=== PATIENT | male | born 1935 | race Caucasian/White ===

== ENCOUNTER 2019-09-20 10:12 | Outpatient (RCR) | payer MEDICARE, SELFPAY ==
[2019-07-05 09:20] LABS: INR 2.3; Prothrombin Time 23.7 Seconds (9.64-11.0)
[2019-08-09 08:32] LABS: INR 2.1; Prothrombin Time 21.1 Seconds (9.64-11.0)
[2019-09-20 10:30] LABS: INR 2.9; Prothrombin Time 28.8 Seconds (9.64-11.0)
== END 2019-10-03 23:59 | disposition home or self-care (01) ==
LOC: CHSLAB 10:12
PROVIDERS: PCP Internal Medicine; Visit Provider Internal Medicine Cardiovascular Disease
DX: I48.0 Paroxysmal atrial fibrillation (principal); Z79.01 Long term (current) use of anticoagulants; Z98.890 Other specified postprocedural states
CPT/HCPCS: 36415; 85610

== ENCOUNTER 2019-10-21 10:18 | Outpatient (CLI) | payer MEDICARE, SELFPAY ==
[2019-10-21 10:32] LABS: Hematocrit 41.3 % (37.0-46.0); Hemoglobin 13.7 g/dL (12.4-15.3); Mean Corpuscular HGB Conc 33.2 g/dL (32.0-36.0); Mean Corpuscular Volume 102.5 fL (78.0-102.0); Mean Platelet Volume 8.7 fl (8.7-11.0); Platelet Count Result 171 K/mm3 (150-420); Red Blood Count 4.03 M/mm3 (4.70-6.10); Red Cell Distribution Width 12.8 % (11.6-14.4); White Blood Count 4.6 K/mm3 (4.8-10.8)
[2019-10-21 10:45] LABS: Hemoglobin A1C 6.2 % (<5.7)
[2019-10-21 10:46] LABS: Prothrombin Time 29.4 Seconds (9.64-11.0)
[2019-10-21 10:54] LABS: Band Neutrophils Percent 0 % (0-6); Basophils Percent Manual 0 % (0-1); Eosinophils Absolute Manual 0.32 K/mm3 (0.02-0.5); Eosinophils Percent Manual 7 % (1-6); Lymphocytes Absolute Manual 1.33 K/mm3 (1.1-4.5); Lymphocytes Percent Manual 29 % (18-44); Monocytes Percent Manual 11 % (3-9); Neutrophils Absolute Manual 2.43 K/mm3 (1.3-6.7); Neutrophils Percent Manual 53 % (46-73); Total Cells Counted 100
[2019-10-21 10:55] LABS: BNP 90 pg/mL (0-100); Platelet Estimate Adequate (Adequate)
[2019-10-21 11:48] LABS: Alanine Aminotransferase 28 U/L (16-63); Albumin Level 3.6 g/dL (3.4-5.0); Alkaline Phosphatase 129 U/L (46-116); Aspartate Amino Transferase 25 U/L (15-37); Bilirubin,Total 0.6 mg/dL (0.00-1.00); Blood Urea Nitrogen 29 mg/dL (7-18); Calcium 9.2 mg/dL (8.5-10.1); Carbon Dioxide 27 mmol/L (21-32); Chloride 105 mmol/L (98-108); Cholesterol 139 mg/dL (0-200); Estimated Glomerular Filt Rate > 60; Ferritin 269 ng/mL (26-388); Free T3 2.82 pg/mL (2.18-3.98); Free T4 Free Thyroxine 0.96 ng/dL (0.76-1.46); Glucose 97 mg/dL (70-99); HDL Direct 37 mg/dL (40-60); Iron 66 ug/dL (65-175); LDL Cholesterol Calculated 59 mg/dL (<130); Osmolality Calculated 299 mOsm/kg (285-295); Percent Iron Saturation 23 % (12-57); Sodium 142 mmol/L (136-145); Thyroid Stimulating Hormone 1.16 uIU/mL (0.36-3.74); Total Protein 7.1 g/dL (6.4-8.2); Triglycerides 214 mg/dL (0-150)
[2019-10-21 11:50] LABS: Vitamin B12 > 2000 pg/mL (193-986)
[2019-10-21 12:12] LABS: Add Urine Microscopic? NO; Appearance Urine Clear (Clear); Bilirubin Urine Negative (Negative); Blood Urine Negative (Negative); Color Urine Yellow (Yellow); Glucose Urine UA Negative (Negative); Ketones Urine Negative (Negative); Leukocyte Esterase Ur Negative (Negative); Nitrate Urine Negative (Negative); Protein Urine Negative (Negative); Urobilinogen Urine 0.2 mg/dL (0.2-1.0); pH Urine 5.5 (5.0-8.0)
[2019-10-23 18:26] LABS: Vitamin D 25 Hydroxy 44 ng/mL (30-100)
== END 2019-10-21 10:19 | disposition home or self-care (01) ==
LOC: CHSLAB 10:21
PROVIDERS: PCP Internal Medicine; Visit Provider Internal Medicine Cardiovascular Disease
DX: Z98.890 Other specified postprocedural states (principal); Z79.01 Long term (current) use of anticoagulants; I48.0 Paroxysmal atrial fibrillation; R73.01 Impaired fasting glucose; I10 Essential (primary) hypertension; E78.2 Mixed hyperlipidemia; D64.9 Anemia, unspecified; E55.9 Vitamin D deficiency, unspecified; E53.8 Deficiency of other specified B group vitamins; E03.4 Atrophy of thyroid (acquired); R06.02 Shortness of breath
CPT/HCPCS: 36415; 80053; 80061; 81003; 82306; 82607; 82728; 83036; 83540; 83550; 83880; 84439; 84443; 84481; 85025; 85610

== ENCOUNTER 2019-12-30 09:00 | Outpatient (RCR) | payer MEDICARE, SELFPAY ==
[2019-11-21 10:15] LABS: Prothrombin Time 52.2 Seconds (9.64-11.0)
[2019-11-21 10:31] LABS: INR 5.4
[2019-11-29 09:58] LABS: INR 4.4; Prothrombin Time 43.5 Seconds (9.64-11.0)
[2019-12-09 08:47] LABS: INR 3.4; Prothrombin Time 33.5 Seconds (9.64-11.0)
[2019-12-19 09:58] LABS: INR 1.6; Prothrombin Time 16.7 Seconds (9.64-11.0)
[2019-12-30 09:19] LABS: INR 2.1; Prothrombin Time 21.4 Seconds (9.64-11.0)
== END 2020-01-10 23:59 | disposition home or self-care (01) ==
LOC: CHSLAB 09:00
PROVIDERS: PCP Internal Medicine Cardiovascular Disease; Visit Provider Internal Medicine Cardiovascular Disease
DX: Z98.890 Other specified postprocedural states (principal); Z79.01 Long term (current) use of anticoagulants; I48.0 Paroxysmal atrial fibrillation
CPT/HCPCS: 36415; 85610

== ENCOUNTER 2020-03-31 09:12 | Outpatient (RCR) | payer MEDICARE, SELFPAY ==
[2020-01-27 16:02] LABS: INR 1.8; Prothrombin Time 18.4 Seconds (9.64-11.0)
[2020-02-27 09:54] LABS: Prothrombin Time 20.5 Seconds (9.64-11.0)
[2020-03-31 09:33] LABS: INR 1.9; Prothrombin Time 19.2 Seconds (9.64-11.0)
== END 2020-04-26 23:59 | disposition home or self-care (01) ==
LOC: CHSLAB 09:12
PROVIDERS: PCP Internal Medicine; Visit Provider Internal Medicine Cardiovascular Disease
DX: Z79.01 Long term (current) use of anticoagulants (principal); I48.0 Paroxysmal atrial fibrillation; Z98.890 Other specified postprocedural states
CPT/HCPCS: 36415; 85610

== ENCOUNTER 2020-05-01 10:37 | Outpatient (CLI) | payer MEDICARE, SELFPAY ==
[2020-05-01 11:09] LABS: Basophils Absolute Auto 0.01 K/mm3 (0.00-0.10); Basophils Percent Auto 0.2 % (0.0-1.0); Eosinophils Percent Auto 2.3 % (1.0-6.0); Hematocrit 40.4 % (37.0-46.0); Hemoglobin 12.8 g/dL (12.4-15.3); Immature Granulocyte Absolute 0.02 K/mm3 (0.00-0.00); Immature Granulocyte Percent A 0.5 % (0.0-0.0); Lymphocytes Percent Auto 20.4 % (18.0-42.0); Mean Corpuscular HGB Conc 31.7 g/dL (32.0-36.0); Mean Corpuscular Volume 107.2 fL (78.0-102.0); Mean Platelet Volume 8.6 fl (8.7-11.0); Monocytes Absolute Auto 0.59 K/mm3 (0.10-0.90); Monocytes Percent Auto 13.4 % (2.0-11.0); Neutrophils Absolute Auto 2.8 K/mm3 (1.7-7.2); Neutrophils Percent Auto 63.2 % (50.0-70.0); Platelet Count Result 188 K/mm3 (150-420); Red Blood Count 3.77 M/mm3 (4.70-6.10); Red Cell Distribution Width 12.3 % (11.6-14.4); White Blood Count 4.4 K/mm3 (4.8-10.8)
[2020-05-01 11:12] LABS: Add Urine Microscopic? NO; Appearance Urine Clear (Clear); Bilirubin Urine Negative (Negative); Blood Urine Negative (Negative); Color Urine Yellow (Yellow); Glucose Urine UA Negative (Negative); Ketones Urine Negative (Negative); Leukocyte Esterase Ur Negative (Negative); Nitrate Urine Negative (Negative); Protein Urine Negative (Negative); Specific Grav Ur >= 1.030 (1.010-1.020); Urobilinogen Urine 0.2 mg/dL (0.2-1.0)
[2020-05-01 11:23] LABS: INR 2.1; Prothrombin Time 21.3 Seconds (9.64-11.0)
[2020-05-01 11:23] LABS: Hemoglobin A1C 5.8 % (<5.7)
[2020-05-01 11:42] LABS: BNP 237 pg/mL (0-100)
[2020-05-01 11:57] LABS: Alanine Aminotransferase 26 U/L (16-63); Albumin Level 3.7 g/dL (3.4-5.0); Alkaline Phosphatase 106 U/L (46-116); Anion Gap 11 mmol/L (8-16); Aspartate Amino Transferase 20 U/L (15-37); Bilirubin,Total 0.9 mg/dL (0.00-1.00); Blood Urea Nitrogen 22 mg/dL (7-18); Calcium 8.9 mg/dL (8.5-10.1); Carbon Dioxide 25 mmol/L (21-32); Chloride 108 mmol/L (98-108); Cholesterol 127 mg/dL (0-200); Estimated Glomerular Filt Rate > 60; Free T3 3.18 pg/mL (2.18-3.98); Free T4 Free Thyroxine 1.18 ng/dL (0.76-1.46); HDL Direct 50 mg/dL (40-60); LDL Cholesterol Calculated 59 mg/dL (<130); Potassium 4.2 mmol/L (3.5-5.1); Sodium 144 mmol/L (136-145); Thyroid Stimulating Hormone 0.09 uIU/mL (0.36-3.74); Total Protein 6.7 g/dL (6.4-8.2); Triglycerides 90 mg/dL (0-150)
[2020-05-01 12:07] LABS: Glucose 88 mg/dL (70-99); Osmolality Calculated 300 mOsm/kg (285-295)
[2020-05-01 12:15] LABS: Vitamin B12 > 2000 pg/mL (193-986)
[2020-05-05 12:04] LABS: Vitamin D 25 Hydroxy 40 ng/mL (30-100)
== END 2020-05-01 10:38 | disposition home or self-care (01) ==
PROVIDERS: PCP Internal Medicine; Visit Provider Internal Medicine
DX: Z98.890 Other specified postprocedural states (principal); Z79.01 Long term (current) use of anticoagulants; I48.0 Paroxysmal atrial fibrillation; I10 Essential (primary) hypertension; R73.01 Impaired fasting glucose; E78.2 Mixed hyperlipidemia; E55.9 Vitamin D deficiency, unspecified; E03.4 Atrophy of thyroid (acquired); E53.8 Deficiency of other specified B group vitamins; R06.00 Dyspnea, unspecified
CPT/HCPCS: 36415; 80053; 80061; 81003; 82306; 82607; 83036; 83880; 84439; 84443; 84481; 85025; 85610

== ENCOUNTER 2020-07-16 09:27 | Outpatient (CLI) | payer MEDICARE, SELFPAY ==
[2020-07-16 09:56] LABS: INR 2.2; Prothrombin Time 22.4 Seconds (9.50-12.10)
[2020-07-16 10:23] LABS: Free T3 2.68 pg/mL (2.18-3.98); Free T4 Free Thyroxine 0.93 ng/dL (0.76-1.46); Thyroid Stimulating Hormone 0.21 uIU/mL (0.36-3.74)
== END 2020-07-16 09:28 | disposition home or self-care (01) ==
PROVIDERS: PCP Internal Medicine; Visit Provider Internal Medicine
DX: I48.0 Paroxysmal atrial fibrillation (principal); Z79.01 Long term (current) use of anticoagulants; E03.4 Atrophy of thyroid (acquired)
CPT/HCPCS: 36415; 84439; 84443; 84481; 85610

== ENCOUNTER 2020-08-17 10:12 | Outpatient (RCR) | payer MEDICARE, SELFPAY ==
[2020-06-01 09:16] LABS: INR 1.7; Prothrombin Time 18.2 Seconds (9.50-12.10)
[2020-06-15 08:45] LABS: INR 2.3; Prothrombin Time 24.5 Seconds (9.50-12.10)
== END 2020-08-30 23:59 | disposition home or self-care (01) ==
LOC: CHSLAB 10:12
PROVIDERS: PCP Internal Medicine; Visit Provider Internal Medicine Cardiovascular Disease
DX: Z98.890 Other specified postprocedural states (principal); Z79.01 Long term (current) use of anticoagulants; I48.0 Paroxysmal atrial fibrillation
CPT/HCPCS: 36415; 85610

== ENCOUNTER 2020-10-14 16:38 | Outpatient (CLI) | payer MEDICARE, BC, SELFPAY ==
--- NOTE | ~2020-10-14 | XR_ITS ---
EXAMINATION: XR knee LT min 4V DATE: 10/14/2020 17:11 INDICATION: Left knee patellar pain and swelling post fall 2010 days prior TECHNIQUE: Weight bearing anteroposterior and Boone, sunrise, and flexed lateral views of the aff ected knee were obtained COMPARISON: 10/31/2015 FINDINGS: Alignment is normal. No fracture. Osteoarthritis with mild to moderate joint space narrowing and tin y marginal osteophytes at the medial and patellofemoral compartments. No joint effusion/layering lipo hemarthrosis. Prominent prepatellar soft tissue swelling with relatively high density suggesting a po sterolateral hematoma. More diffuse subcutaneous edema about the left knee. IMPRESSION: 1. Dense soft tissue swelling anterior to the patella most likely post traumatic hematoma. No acute o sseous abnormality. 2. 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 Reviewed, dictated and finalized at location A. IMPRESSION: 1. Dense soft tissue swelling anterior to the patella most likely post traumati c hematoma. No acute osseous abnormality. 2. Mild to moderate osteoarthritis in the medial and patellofemoral compartment s.
== END 2020-10-14 16:39 | disposition home or self-care (01) ==
PROVIDERS: PCP Internal Medicine; Visit Provider Internal Medicine
DX: S89.92XA Unspecified injury of left lower leg, initial encounter (principal)
CPT/HCPCS: 73564

== ENCOUNTER 2020-10-28 09:06 | Outpatient (CLI) | payer MEDICARE, SELFPAY ==
[2020-10-28 09:24] LABS: Hematocrit 35.6 % (37.0-46.0); Hemoglobin 11.3 g/dL (12.4-15.3); Mean Corpuscular HGB Conc 31.7 g/dL (32.0-36.0); Mean Corpuscular Hemoglobin 33.3 pg (27.0-31.0); Mean Platelet Volume 8.4 fl (8.7-11.0); Platelet Count Result 199 K/mm3 (150-420); Red Blood Count 3.39 M/mm3 (4.70-6.10); Red Cell Distribution Width 14.1 % (11.6-14.4); White Blood Count 3.9 K/mm3 (4.8-10.8)
[2020-10-28 09:30] LABS: Add Urine Microscopic? NO; Appearance Urine Clear (Clear); Bilirubin Urine Negative (Negative); Blood Urine Negative (Negative); Color Urine Yellow (Yellow); Glucose Urine UA Negative (Negative); Ketones Urine Negative (Negative); Leukocyte Esterase Ur Negative (Negative); Nitrate Urine Negative (Negative); Protein Urine Negative (Negative); pH Urine 6.5 (5.0-8.0)
[2020-10-28 09:38] LABS: INR 1.4; Prothrombin Time 15.1 Seconds (9.50-12.10)
[2020-10-28 09:45] LABS: Band Neutrophils Percent 0 % (0-6); Basophils Percent Manual 0 % (0-1); Eosinophils Absolute Manual 0.23 K/mm3 (0.02-0.5); Eosinophils Percent Manual 6 % (1-6); Lymphocytes Percent Manual 31 % (18-44); Monocytes Absolute Manual 0.35 K/mm3 (0.1-0.90); Monocytes Percent Manual 9 % (3-9); Neutrophils Percent Manual 54 % (46-73); Platelet Estimate Adequate (Adequate); Total Cells Counted 100
[2020-10-28 10:43] LABS: Alanine Aminotransferase 21 U/L (16-63); Albumin Level 3.5 g/dL (3.4-5.0); Alkaline Phosphatase 129 U/L (46-116); Anion Gap 8 mmol/L (8-16); Aspartate Amino Transferase 16 U/L (15-37); Bilirubin,Total 0.9 mg/dL (0.00-1.00); Blood Urea Nitrogen 19 mg/dL (7-18); Carbon Dioxide 28 mmol/L (21-32); Chloride 104 mmol/L (98-108); Cholesterol 124 mg/dL (0-200); Estimated Glomerular Filt Rate > 60; Ferritin 322 ng/mL (26-388); Free T3 2.37 pg/mL (2.18-3.98); Free T4 Free Thyroxine 0.95 ng/dL (0.76-1.46); Glucose 95 mg/dL (70-99); HDL Direct 37 mg/dL (40-60); Iron 46 ug/dL (65-175); LDL Cholesterol Calculated 62 mg/dL (<130); NT Pro B Type Natriuretic Pept 1585 pg/mL (0-450); Osmolality Calculated 292 mOsm/kg (285-295); Percent Iron Saturation 17 % (12-57); Potassium 4.1 mmol/L (3.5-5.1); Sodium 140 mmol/L (136-145); Thyroid Stimulating Hormone 4.06 uIU/mL (0.36-3.74); Total Protein 6.8 g/dL (6.4-8.2); Triglycerides 126 mg/dL (0-150); Vitamin B12 468 pg/mL (193-986)
[2020-10-28 10:49] LABS: Calcium 9.2 mg/dL (8.5-10.1)
== END 2020-10-28 09:07 | disposition home or self-care (01) ==
LOC: CHSLAB 09:09
PROVIDERS: PCP Internal Medicine; Visit Provider Internal Medicine Cardiovascular Disease
DX: I48.0 Paroxysmal atrial fibrillation (principal); Z79.01 Long term (current) use of anticoagulants; E03.4 Atrophy of thyroid (acquired); R73.01 Impaired fasting glucose; I10 Essential (primary) hypertension; E55.9 Vitamin D deficiency, unspecified; E53.8 Deficiency of other specified B group vitamins; E78.2 Mixed hyperlipidemia; D64.9 Anemia, unspecified; I50.9 Heart failure, unspecified
CPT/HCPCS: 36415; 80053; 80061; 81003; 82607; 82728; 83540; 83550; 83880; 84439; 84443; 84481; 85025; 85610

== ENCOUNTER 2020-12-02 09:55 | Outpatient (RCR) | payer MEDICARE, SELFPAY ==
[2020-09-17 08:52] LABS: INR 2.2; Prothrombin Time 22.2 Seconds (9.50-12.10)
[2020-11-04 08:52] LABS: INR 2.3; Prothrombin Time 23.5 Seconds (9.50-12.10)
[2020-11-11 12:43] LABS: INR 2.2; Prothrombin Time 22.9 Seconds (9.50-12.10)
[2020-12-02 10:15] LABS: INR 2.4; Prothrombin Time 24.5 Seconds (9.50-12.10)
== END 2020-12-16 23:59 | disposition home or self-care (01) ==
LOC: CHSLAB 09:55
PROVIDERS: PCP Internal Medicine; Visit Provider Internal Medicine Cardiovascular Disease
DX: I48.0 Paroxysmal atrial fibrillation (principal); Z79.01 Long term (current) use of anticoagulants
CPT/HCPCS: 36415; 85610

== ENCOUNTER 2020-12-31 09:11 | Outpatient (CLI) | payer MEDICARE, SELFPAY ==
[2020-12-31 09:37] LABS: Hematocrit 39.3 % (37.0-46.0); Hemoglobin 12.6 g/dL (12.4-15.3); Immature Reticulocyte Fraction 11.5 % (2.0-16.52); Mean Corpuscular HGB Conc 32.1 g/dL (32.0-36.0); Mean Corpuscular Hemoglobin 32.5 pg (27.0-31.0); Mean Corpuscular Volume 101.3 fL (78.0-102.0); Mean Platelet Volume 8.6 fl (8.7-11.0); Platelet Count Result 179 K/mm3 (150-420); Red Blood Count 3.88 M/mm3 (4.70-6.10); Red Cell Distribution Width 13.2 % (11.6-14.4); Reticulocyte Hemoglobin Conten 38.1 pg (28.0-35.0); Reticulocyte Percent 1.37 % (0.50-1.50); Reticulocytes Absolute 0.05 M/mm3 (0.02-0.1); White Blood Count 4.1 K/mm3 (4.8-10.8)
[2020-12-31 09:49] LABS: INR 2.1; Prothrombin Time 22.1 Seconds (9.50-12.10)
[2020-12-31 10:08] LABS: Band Neutrophils Percent 0 % (0-6); Basophils Percent Manual 0 % (0-1); Eosinophils Absolute Manual 0.32 K/mm3 (0.02-0.5); Eosinophils Percent Manual 8 % (1-6); Lymphocytes Absolute Manual 1.18 K/mm3 (1.1-4.5); Lymphocytes Percent Manual 29 % (18-44); Monocytes Absolute Manual 0.45 K/mm3 (0.1-0.90); Monocytes Percent Manual 11 % (3-9); Neutrophils Absolute Manual 2.13 K/mm3 (1.3-6.7); Neutrophils Percent Manual 52 % (46-73); Platelet Estimate Adequate (Adequate); Total Cells Counted 100
[2020-12-31 10:35] LABS: Ferritin 196 ng/mL (26-388); Iron 46 ug/dL (65-175); Percent Iron Saturation 16 % (12-57)
[2021-01-04 13:01] LABS: Red Blood Cell Folate 634 ng/mL RBC (>280)
== END 2020-12-31 09:12 | disposition home or self-care (01) ==
LOC: CHSLAB 09:14
PROVIDERS: PCP Internal Medicine; Visit Provider Internal Medicine
DX: D64.9 Anemia, unspecified (principal); I48.0 Paroxysmal atrial fibrillation; Z79.01 Long term (current) use of anticoagulants
CPT/HCPCS: 36415; 82728; 82747; 83540; 83550; 85025; 85046; 85610

== ENCOUNTER 2021-02-01 09:18 | Outpatient (CLI) | payer MEDICARE, SELFPAY ==
[2021-02-01 09:33] LABS: Basophils Absolute Auto 0.02 K/mm3 (0.00-0.10); Basophils Percent Auto 0.5 % (0.0-1.0); Eosinophils Absolute Auto 0.28 K/mm3 (0.02-0.50); Eosinophils Percent Auto 6.4 % (1.0-6.0); Hematocrit 40.4 % (37.0-46.0); Hemoglobin 12.8 g/dL (12.4-15.3); Immature Granulocyte Absolute 0.01 K/mm3 (0.00-0.00); Immature Granulocyte Percent A 0.2 % (0.0-0.0); Lymphocytes Absolute Auto 0.99 K/mm3 (1.10-4.50); Lymphocytes Percent Auto 22.6 % (18.0-42.0); Mean Corpuscular HGB Conc 31.7 g/dL (32.0-36.0); Mean Corpuscular Hemoglobin 33.1 pg (27.0-31.0); Mean Corpuscular Volume 104.4 fL (78.0-102.0); Mean Platelet Volume 8.4 fl (8.7-11.0); Monocytes Percent Auto 13.7 % (2.0-11.0); Neutrophils Absolute Auto 2.5 K/mm3 (1.7-7.2); Neutrophils Percent Auto 56.6 % (50.0-70.0); Platelet Count Result 158 K/mm3 (150-420); Red Blood Count 3.87 M/mm3 (4.70-6.10); Red Cell Distribution Width 13.5 % (11.6-14.4); White Blood Count 4.4 K/mm3 (4.8-10.8)
[2021-02-01 09:46] LABS: INR 2.1; Prothrombin Time 21.8 Seconds (9.50-12.10)
[2021-02-01 10:38] LABS: Ferritin 228 ng/mL (26-388); Free T3 2.56 pg/mL (2.18-3.98); Free T4 Free Thyroxine 0.82 ng/dL (0.76-1.46); Iron 57 ug/dL (65-175); Thyroid Stimulating Hormone 5.17 uIU/mL (0.36-3.74)
== END 2021-02-01 09:19 | disposition home or self-care (01) ==
LOC: CHSLAB 09:20
PROVIDERS: PCP Internal Medicine; Visit Provider Internal Medicine Cardiovascular Disease
DX: D50.9 Iron deficiency anemia, unspecified (principal); E03.4 Atrophy of thyroid (acquired); I48.0 Paroxysmal atrial fibrillation
CPT/HCPCS: 36415; 82728; 83540; 84439; 84443; 84481; 85025; 85610

== ENCOUNTER 2021-03-08 09:21 | Outpatient (CLI) | payer MEDICARE, SELFPAY ==
[2021-03-08 09:34] LABS: Hematocrit 41.5 % (37.0-46.0); Hemoglobin 13.3 g/dL (12.4-15.3); Mean Corpuscular Hemoglobin 33.4 pg (27.0-31.0); Mean Corpuscular Volume 104.3 fL (78.0-102.0); Mean Platelet Volume 8.8 fl (8.7-11.0); Platelet Count Result 159 K/mm3 (150-420); Red Blood Count 3.98 M/mm3 (4.70-6.10); Red Cell Distribution Width 13.3 % (11.6-14.4); White Blood Count 3.7 K/mm3 (4.8-10.8)
[2021-03-08 09:50] LABS: INR 3.7; Prothrombin Time 36.7 Seconds (9.50-12.10)
[2021-03-08 10:04] LABS: Band Neutrophils Percent 0 % (0-6); Basophils Percent Manual 0 % (0-1); Eosinophils Absolute Manual 0.29 K/mm3 (0.02-0.5); Eosinophils Percent Manual 8 % (1-6); Lymphocytes Absolute Manual 1.22 K/mm3 (1.1-4.5); Lymphocytes Percent Manual 33 % (18-44); Monocytes Absolute Manual 0.51 K/mm3 (0.1-0.90); Monocytes Percent Manual 14 % (3-9); Neutrophils Absolute Manual 1.66 K/mm3 (1.3-6.7); Neutrophils Percent Manual 45 % (46-73); Total Cells Counted 100
[2021-03-08 10:05] LABS: Platelet Estimate Adequate (Adequate)
[2021-03-08 10:29] LABS: Ferritin 226 ng/mL (26-388); Iron 71 ug/dL (65-175); Percent Iron Saturation 27 % (12-57)
== END 2021-03-08 09:22 | disposition home or self-care (01) ==
LOC: CHSLAB 09:23
PROVIDERS: PCP Internal Medicine; Visit Provider Internal Medicine Cardiovascular Disease
DX: D50.9 Iron deficiency anemia, unspecified (principal); Z79.01 Long term (current) use of anticoagulants
CPT/HCPCS: 36415; 82728; 83540; 83550; 85025; 85610

== ENCOUNTER 2021-04-30 07:56 | Outpatient (CLI) | payer MEDICARE, SELFPAY ==
[2021-04-30 08:13] LABS: Hematocrit 40.9 % (37.0-46.0); Hemoglobin 12.9 g/dL (12.4-15.3); Mean Corpuscular HGB Conc 31.5 g/dL (32.0-36.0); Mean Corpuscular Hemoglobin 33.4 pg (27.0-31.0); Mean Platelet Volume 8.9 fl (8.7-11.0); Platelet Count Result 144 K/mm3 (150-420); Red Blood Count 3.86 M/mm3 (4.70-6.10); Red Cell Distribution Width 13.2 % (11.6-14.4); White Blood Count 3.7 K/mm3 (4.8-10.8)
[2021-04-30 08:35] LABS: Hemoglobin A1C 5.8 % (<5.7)
[2021-04-30 09:06] LABS: Band Neutrophils Percent 31 % (0-6); Basophils Percent Manual 0 % (0-1); Eosinophils Percent Manual 0 % (1-6); Lymphocytes Absolute Manual 0.48 K/mm3 (1.1-4.5); Lymphocytes Percent Manual 13 % (18-44); Monocytes Absolute Manual 0.14 K/mm3 (0.1-0.90); Monocytes Percent Manual 4 % (3-9); Neutrophils Absolute Manual 1.14 K/mm3 (1.3-6.7); Neutrophils Percent Manual 0 % (46-73); Platelet Estimate Adequate (Adequate); Total Cells Counted 52
[2021-04-30 09:19] LABS: Alanine Aminotransferase 39 U/L (16-63); Albumin Level 3.7 g/dL (3.4-5.0); Alkaline Phosphatase 104 U/L (46-116); Anion Gap 9 mmol/L (8-16); Aspartate Amino Transferase 27 U/L (15-37); Bilirubin,Total 0.9 mg/dL (0.00-1.00); Blood Urea Nitrogen 27 mg/dL (7-18); Calcium 9.2 mg/dL (8.5-10.1); Carbon Dioxide 28 mmol/L (21-32); Chloride 104 mmol/L (98-108); Cholesterol 132 mg/dL (0-200); Estimated Glomerular Filt Rate 53; Ferritin 225 ng/mL (26-388); Free T3 2.84 pg/mL (2.18-3.98); Free T4 Free Thyroxine 0.98 ng/dL (0.76-1.46); Glucose 88 mg/dL (70-99); HDL Direct 50 mg/dL (40-60); Iron 56 ug/dL (65-175); LDL Cholesterol Calculated 66 mg/dL (<130); Magnesium 2.3 mg/dL (1.8-2.4); NT Pro B Type Natriuretic Pept 869 pg/mL (0-450); Osmolality Calculated 296 mOsm/kg (285-295); Potassium 4.2 mmol/L (3.5-5.1); Sodium 141 mmol/L (136-145); Thyroid Stimulating Hormone 2.69 uIU/mL (0.36-3.74); Triglycerides 80 mg/dL (0-150); Vitamin B12 534 pg/mL (193-986)
[2021-04-30 09:47] LABS: Add Urine Microscopic? NO; Appearance Urine Clear (Clear); Bilirubin Urine Negative (Negative); Blood Urine Negative (Negative); Color Urine Light Yellow (Yellow); Glucose Urine UA Negative (Negative); Ketones Urine Negative (Negative); Leukocyte Esterase Ur Negative (Negative); Nitrate Urine Negative (Negative); Protein Urine Negative (Negative); Specific Grav Ur 1.015 (1.010-1.020); Urobilinogen Urine 0.2 mg/dL (0.2-1.0)
[2021-05-03 18:53] LABS: Vitamin D 25 Hydroxy 39 ng/mL (30-100)
[2021-05-04 14:47] LABS: Red Blood Cell Folate 550 ng/mL RBC (>280)
== END 2021-04-30 07:57 | disposition home or self-care (01) ==
LOC: CHSLAB 07:58
PROVIDERS: PCP Internal Medicine; Visit Provider Internal Medicine
DX: E03.4 Atrophy of thyroid (acquired) (principal); I10 Essential (primary) hypertension; E55.9 Vitamin D deficiency, unspecified; R73.01 Impaired fasting glucose; E78.2 Mixed hyperlipidemia; E53.8 Deficiency of other specified B group vitamins; D50.9 Iron deficiency anemia, unspecified; I48.11 Longstanding persistent atrial fibrillation; I50.9 Heart failure, unspecified
CPT/HCPCS: 36415; 80053; 80061; 81003; 82306; 82607; 82728; 82747; 83036; 83540; 83735; 83880; 84439; 84443; 84481; 85025; 85610

== ENCOUNTER 2021-05-04 10:52 | Outpatient (RCR) | payer MEDICARE, SELFPAY ==
[2021-04-02 09:49] LABS: INR 2.3
[2021-05-04 11:20] LABS: INR 2.2; Prothrombin Time 22.3 Seconds (9.50-12.10)
== END 2021-07-01 23:59 | disposition home or self-care (01) ==
LOC: CHSLAB 10:52
PROVIDERS: PCP Internal Medicine; Visit Provider Internal Medicine Cardiovascular Disease
DX: I48.0 Paroxysmal atrial fibrillation (principal); Z79.01 Long term (current) use of anticoagulants
CPT/HCPCS: 36415; 85610

== ENCOUNTER 2021-06-08 08:07 | Outpatient (CLI) | payer MEDICARE, SELFPAY ==
[2021-06-08 08:20] LABS: Basophils Absolute Auto 0.01 K/mm3 (0.00-0.10); Basophils Percent Auto 0.2 % (0.0-1.0); Eosinophils Absolute Auto 0.27 K/mm3 (0.02-0.50); Eosinophils Percent Auto 6.2 % (1.0-6.0); Hematocrit 41.9 % (37.0-46.0); Hemoglobin 13.1 g/dL (12.4-15.3); Immature Granulocyte Absolute 0.02 K/mm3 (0.00-0.00); Immature Granulocyte Percent A 0.5 % (0.0-0.0); Lymphocytes Absolute Auto 1.38 K/mm3 (1.10-4.50); Lymphocytes Percent Auto 31.7 % (18.0-42.0); Mean Corpuscular HGB Conc 31.3 g/dL (32.0-36.0); Mean Corpuscular Hemoglobin 33.2 pg (27.0-31.0); Mean Corpuscular Volume 106.1 fL (78.0-102.0); Mean Platelet Volume 8.7 fl (8.7-11.0); Monocytes Absolute Auto 0.42 K/mm3 (0.10-0.90); Monocytes Percent Auto 9.6 % (2.0-11.0); Neutrophils Absolute Auto 2.3 K/mm3 (1.7-7.2); Neutrophils Percent Auto 51.8 % (50.0-70.0); Platelet Count Result 176 K/mm3 (150-420); Red Blood Count 3.95 M/mm3 (4.70-6.10); Red Cell Distribution Width 12.9 % (11.6-14.4); White Blood Count 4.4 K/mm3 (4.8-10.8)
[2021-06-08 08:33] LABS: INR 2.6; Prothrombin Time 26.2 Seconds (9.50-12.10)
[2021-06-08 09:09] LABS: Ferritin 266 ng/mL (26-388); Iron 64 ug/dL (65-175)
== END 2021-06-08 08:08 | disposition home or self-care (01) ==
LOC: CHSLAB 08:09
PROVIDERS: Internal Medicine Cardiovascular Disease; PCP Internal Medicine; Visit Provider Internal Medicine
DX: D50.9 Iron deficiency anemia, unspecified (principal); I48.0 Paroxysmal atrial fibrillation; Z79.01 Long term (current) use of anticoagulants
CPT/HCPCS: 36415; 82728; 83540; 85025; 85610

== ENCOUNTER 2021-07-09 08:56 | Outpatient (CLI) | payer MEDICARE, SELFPAY ==
[2021-07-09 09:09] LABS: Basophils Absolute Auto 0.02 K/mm3 (0.00-0.10); Basophils Percent Auto 0.4 % (0.0-1.0); Eosinophils Absolute Auto 0.22 K/mm3 (0.02-0.50); Eosinophils Percent Auto 3.9 % (1.0-6.0); Hematocrit 40.5 % (37.0-46.0); Hemoglobin 12.8 g/dL (12.4-15.3); Immature Granulocyte Absolute 0.02 K/mm3 (0.00-0.00); Immature Granulocyte Percent A 0.4 % (0.0-0.0); Lymphocytes Absolute Auto 1.18 K/mm3 (1.10-4.50); Mean Corpuscular HGB Conc 31.6 g/dL (32.0-36.0); Mean Corpuscular Hemoglobin 33.8 pg (27.0-31.0); Mean Corpuscular Volume 106.9 fL (78.0-102.0); Mean Platelet Volume 8.6 fl (8.7-11.0); Monocytes Absolute Auto 0.64 K/mm3 (0.10-0.90); Monocytes Percent Auto 11.4 % (2.0-11.0); Neutrophils Absolute Auto 3.5 K/mm3 (1.7-7.2); Neutrophils Percent Auto 62.9 % (50.0-70.0); Platelet Count Result 150 K/mm3 (150-420); Red Blood Count 3.79 M/mm3 (4.70-6.10); Red Cell Distribution Width 13.2 % (11.6-14.4); White Blood Count 5.6 K/mm3 (4.8-10.8)
[2021-07-09 09:22] LABS: Prothrombin Time 30.1 Seconds (9.50-12.10)
[2021-07-09 09:54] LABS: Ferritin 209 ng/mL (26-388); Iron 48 ug/dL (65-175)
== END 2021-07-09 08:57 | disposition home or self-care (01) ==
LOC: CHSLAB 08:57
PROVIDERS: PCP Internal Medicine; Visit Provider Internal Medicine Cardiovascular Disease
DX: D50.9 Iron deficiency anemia, unspecified (principal); I48.0 Paroxysmal atrial fibrillation; Z79.01 Long term (current) use of anticoagulants
CPT/HCPCS: 36415; 82728; 83540; 85025; 85610

== ENCOUNTER 2021-10-07 08:49 | Outpatient (RCR) | payer MEDICARE, SELFPAY ==
[2021-08-12 11:45] LABS: INR 2.1; Prothrombin Time 21.9 Seconds (9.50-12.10)
[2021-09-06 09:38] LABS: INR 2.9; Prothrombin Time 29.5 Seconds (9.50-12.10)
[2021-10-07 10:00] LABS: INR 2.1; Prothrombin Time 21.6 Seconds (9.50-12.10)
== END 2021-11-10 23:59 | disposition home or self-care (01) ==
LOC: CHSLAB 08:49
PROVIDERS: PCP Internal Medicine; Visit Provider Internal Medicine Cardiovascular Disease
DX: I48.91 Unspecified atrial fibrillation (principal); Z79.01 Long term (current) use of anticoagulants
CPT/HCPCS: 36415; 85610

== ENCOUNTER 2021-12-07 09:02 | Outpatient (CLI) | payer MEDICARE, SELFPAY ==
[2021-12-07 09:16] LABS: Hematocrit 38.7 % (37.0-46.0); Hemoglobin 12.3 g/dL (12.4-15.3); Mean Corpuscular HGB Conc 31.8 g/dL (32.0-36.0); Mean Corpuscular Hemoglobin 34.6 pg (27.0-31.0); Mean Corpuscular Volume 108.7 fL (78.0-102.0); Mean Platelet Volume 8.6 fl (8.7-11.0); Platelet Count Result 174 K/mm3 (150-420); Red Blood Count 3.56 M/mm3 (4.70-6.10); Red Cell Distribution Width 13.5 % (11.6-14.4); White Blood Count 3.9 K/mm3 (4.8-10.8)
[2021-12-07 09:29] LABS: INR 2.7; Prothrombin Time 26.9 Seconds (9.50-12.10)
[2021-12-07 10:03] LABS: Ferritin 316 ng/mL (26-388); Free T3 2.45 pg/mL (2.18-3.98); Free T4 Free Thyroxine 0.85 ng/dL (0.76-1.46); Iron 51 ug/dL (65-175); Thyroid Stimulating Hormone 5.73 uIU/mL (0.36-3.74)
[2021-12-07 10:10] LABS: Total Cells Counted 100
[2021-12-07 10:11] LABS: Band Neutrophils Percent 0 % (0-6); Basophils Percent Manual 0 % (0-1); Eosinophils Absolute Manual 0.11 K/mm3 (0.02-0.5); Eosinophils Percent Manual 3 % (1-6); Lymphocytes Absolute Manual 1.32 K/mm3 (1.1-4.5); Lymphocytes Percent Manual 34 % (18-44); Monocytes Absolute Manual 0.42 K/mm3 (0.1-0.90); Monocytes Percent Manual 11 % (3-9); Neutrophils Absolute Manual 2.02 K/mm3 (1.3-6.7); Neutrophils Percent Manual 52 % (46-73); Platelet Estimate Adequate (Adequate)
== END 2021-12-07 09:03 | disposition home or self-care (01) ==
LOC: CHSLAB 09:05
PROVIDERS: PCP Internal Medicine; Visit Provider Internal Medicine Cardiovascular Disease
DX: D50.9 Iron deficiency anemia, unspecified (principal); E03.4 Atrophy of thyroid (acquired); I48.0 Paroxysmal atrial fibrillation; Z79.01 Long term (current) use of anticoagulants
CPT/HCPCS: 36415; 82728; 83540; 84439; 84443; 84481; 85025; 85610

== ENCOUNTER 2022-01-17 09:05 | Outpatient (CLI) | payer MEDICARE, SELFPAY ==
[2022-01-17 09:17] LABS: Hematocrit 39.7 % (37.0-46.0); Hemoglobin 12.4 g/dL (12.4-15.3); Mean Corpuscular HGB Conc 31.2 g/dL (32.0-36.0); Mean Corpuscular Hemoglobin 33.7 pg (27.0-31.0); Mean Corpuscular Volume 107.9 fL (78.0-102.0); Mean Platelet Volume 8.6 fl (8.7-11.0); Platelet Count Result 145 K/mm3 (150-420); Red Blood Count 3.68 M/mm3 (4.70-6.10); Red Cell Distribution Width 12.6 % (11.6-14.4); White Blood Count 3.9 K/mm3 (4.8-10.8)
[2022-01-17 09:28] LABS: Band Neutrophils Percent 0 % (0-6); Basophils Absolute Manual 0.03 K/mm3 (0-0.1); Basophils Percent Manual 1 % (0-1); Eosinophils Absolute Manual 0.23 K/mm3 (0.02-0.5); Eosinophils Percent Manual 6 % (1-6); Lymphocytes Absolute Manual 1.36 K/mm3 (1.1-4.5); Lymphocytes Percent Manual 35 % (18-44); Monocytes Absolute Manual 0.31 K/mm3 (0.1-0.90); Monocytes Percent Manual 8 % (3-9); Neutrophils Absolute Manual 1.95 K/mm3 (1.3-6.7); Neutrophils Percent Manual 50 % (46-73); Platelet Estimate Adequate (Adequate); Total Cells Counted 100
[2022-01-17 09:32] LABS: INR 3.4; Prothrombin Time 34.1 Seconds (9.50-12.10)
[2022-01-17 09:52] LABS: Ferritin 237 ng/mL (26-388); Iron 67 ug/dL (65-175)
== END 2022-01-17 09:06 | disposition home or self-care (01) ==
LOC: CHSLAB 09:08
PROVIDERS: PCP Internal Medicine; Visit Provider Internal Medicine Cardiovascular Disease
DX: I48.91 Unspecified atrial fibrillation (principal); Z79.01 Long term (current) use of anticoagulants
CPT/HCPCS: 36415; 82728; 83540; 85025; 85610

== ENCOUNTER 2022-02-10 01:15 | Day surgery (SDC) | payer MEDICARE, BC, SELFPAY ==
[2022-01-25 10:52] VITALS: BMI 25.9
[2022-02-10 07:37] VITALS: BP 136/92; PULSE 56; RESP 18; TEMP 36.7; O2SAT 100
[2022-02-10] MEDS: LACTATED RINGERS 1,000 ML 150 ML IV CONT (07:55)
[2022-02-10 08:14] LABS: Prothrombin Time 21.7 Seconds (11.1-14.7)
[2022-02-10 08:15] LABS: Partial Thromboplastin Time 36.7 SECONDS (22.3-36.8)
--- NOTE | 2022-02-10 08:48 | WPDANESEPPF ---
Anes - Initial Pre Proc Eval Procedure: Operation Date: 02/10/22 09:00 Proposed Procedures p Colonoscopy - Jaun Calderón DO Date/Time: 02/10/22 08:48 Surgeon: Juan Calderón DO Pre Op Diagnosis: JUD, melena Patient Data Age: 86 Gender: M Height: 1.75 m Weight: 79.5 kg Last Vital Signs Temp 98.1 F 02/10/22 07:37 Pulse 56 L 02/10/22 07:37 Resp 18 02/10/22 07:37 BP 136/92 H 02/10/22 07:37 Pulse Ox 100 02/10/22 07:37 O2 Del Method Room Air 02/10/22 07:37 Allergies Allergy/AdvReac Type Severity Reaction Status Date / Time No Known Allergies Allergy Mild Verified 02/10/22 07:35 Home Medications Medication Instructions Recorded Confirmed Type Klor-Con M20 20 meq PO DAILY 01/25/22 01/25/22 History furosemide 20 mg tablet 20 mg PO DAILY 01/25/22 01/25/22 History lisinopril 2.5 mg tablet 2.5 mg PO DAILY 01/25/22 01/25/22 History lovastatin 40 mg tablet 40 mg PO DAILY 01/25/22 01/25/22 History tamsulosin 0.4 mg capsule (Flomax) 0.4 mg PO DAILY 01/25/22 01/25/22 History verapamil 40 mg tablet 40 mg PO DAILY 01/25/22 01/25/22 History warfarin 5 mg tablet 5 mg PO DAILY 01/25/22 02/10/22 History Laboratory Tests 02/10/22 07:46 PT 21.7 Seconds H Seconds (11.1-14.7) INR 2.0 APTT 36.7 SECONDS SECONDS (22.3-36.8) Patient hx anesthesia problems: none Family hx anesthesia problems: none Results Review: All pre-operative results and documents have been reviewed as part of the pre-operative evaluation. [facility] Family History Family History (Updated 03/08/18 @ 09:47 by DOCTOR UNKNOWN) Other Hypertension Social History Social History Smoking status: Never smoker Alcohol intake: never Substance use: never Substance use type: does not use Living arrangements: with family Spiritual care concerns: No Anes - Eval Final PreProcedure Day of Procedure 02/10/22 08:48 Patient weight: normal Heart: irregular rhythm Lungs: clear to auscultation Airway: Mallampati scale class II Neurological: alert and oriented Last oral intake: >/= 8 hours ASA classification: III Emergent: no Anesthetic plan: proceed Anesthesia type and monitoring: general GIVS and standard monitoring Results Review: All pre-operative results and documents have been reviewed as part of the pre-operative evaluation. Informed Consent: The patient's anesthetic plan and its attendant risks and benefits were discussed with the patient/family/POA. Questions were solicited and answers provided to the satisfaction of the patient/family/POA.
--- NOTE | 2022-02-10 09:07 | PM.IMHP ---
H&P: HPI History of Present Illness Date/Time: 02/10/22 09:07 Chief Complaint: melena, iron deficiency anemia Narrative: this is an 86-year-old man who presents for colonoscopy. His last colonoscopy was 30 years ago. He has been experiencing some dark black stools and was noted to have iron deficiency anemia. Denies history of colon cancer. Review of Systems Review of Systems: All systems reviewed & are unremarkable except as noted in HPI and below Constitutional: Constitutional: Denies chills, Denies fever(s), Denies headache(s) and Denies weight loss Eyes: Eyes: Denies change in vision ENT: Denies dizziness, Denies headache(s), Denies neck mass and Denies throat swelling Cardiovascular: Cardiovascular: Denies chest pain, Denies lightheadedness and Denies dyspnea Respiratory: Respiratory: Denies cough, Denies dyspnea and Denies wheezing Gastrointestinal: Gastrointestinal: Denies abdominal pain, Denies change in bowel habits, Denies nausea and Denies vomiting Genitourinary: Genitourinary: Denies hematuria and Denies dysuria Musculoskeletal: Musculoskeletal: Reports as per HPI Integumentary/Breasts: Skin/Breast: Reports as per HPI Neurologic: Denies dizziness and Denies headache(s) Allergic/Immunologic: Allergic/Immunologic: Denies throat swelling and Denies wheezing [facility] Family History Family History (Updated 03/08/18 @ 09:47 by DOCTOR UNKNOWN) Other Hypertension Social History Social History Smoking status: Never smoker Alcohol intake: never Substance use: never Substance use type: does not use Living arrangements: with family Spiritual care concerns: No Meds Home Medications and Allergies Home Medications Medication Instructions Recorded Confirmed Type Klor-Con M20 20 meq PO DAILY 01/25/22 01/25/22 History furosemide 20 mg tablet 20 mg PO DAILY 01/25/22 01/25/22 History lisinopril 2.5 mg tablet 2.5 mg PO DAILY 01/25/22 01/25/22 History lovastatin 40 mg tablet 40 mg PO DAILY 01/25/22 01/25/22 History tamsulosin 0.4 mg capsule (Flomax) 0.4 mg PO DAILY 01/25/22 01/25/22 History verapamil 40 mg tablet 40 mg PO DAILY 01/25/22 01/25/22 History warfarin 5 mg tablet 5 mg PO DAILY 01/25/22 02/10/22 History Allergies Allergy/AdvReac Type Severity Reaction Status Date / Time No Known Allergies Allergy Mild Verified 02/10/22 07:35 Vital Signs Vital Signs - 24 hr 02/10/22 07:37 Temperature 36.7 C Pulse Rate 56 L Respiratory Rate 18 Blood Pressure 136/92 H Pulse Oximetry 100 Oxygen Delivery Room Air Exam Const: General: no acute distress and alert Orientation/consciousness: patient oriented x3 HENMT: Head: normocephalic and atraumatic Ears: hearing grossly normal bilaterally General nose exam: Normal nares present Mouth: Yes Normal oral and palatal mucosa present Eyes: Periorbital: periorbital findings normal Sclera: sclerae normal EOM: EOMs intact bilaterally Neck: Neck: normal visual inspection, no lymphadenopathy and trachea midline Chest: Chest palpation & inspection: normal inspection of the chest Resp: Effort & Inspection: normal respiratory effort Auscultation: clear to auscultation bilaterally Cardio: Jugular venous distension: no JVD Rate: regular rate Rhythm: regular rhythm Heart sounds: S1 normal heart sound present and S2 normal heart sound present Peripheral pulses: Peripheral pulses 2+ throughout GI: Inspection: normal to inspection GI Palp: Yes Soft to palpation, No Tenderness to palpation present (GI), No Guarding due to palpation present (GI) and No Rebound tenderness present Percussion: Yes normal to percussion Auscultation: normal bowel sounds : General: Yes no CVA tenderness Back/Spine/Pelvis: Back: no CVA tenderness Neuro: General: patient oriented x3, no focal motor deficits and CN's II-XI intact bilaterally Cognition (Neuro): normal cognition Speech: normal speech Motor exam (neuro): 5/5 motor strength present t
[2022-02-10 09:42] VITALS: BP 103/67; PULSE 96; RESP 27; O2SAT 99
[2022-02-10 09:52] VITALS: BP 99/72; PULSE 87; RESP 18; O2SAT 99
[2022-02-10 10:02] VITALS: BP 122/73; PULSE 85; RESP 20; O2SAT 100
== END 2022-02-10 10:10 | disposition home or self-care (01) ==
PROVIDERS: PCP Internal Medicine; Visit Provider Surgery
PROC: 0DJD8ZZ Inspection of Lower Intestinal Tract, Via Natural or Artificial Opening Endoscopic (ICD-10-PCS; CPT 45378; principal; 2022-02-10 09:00)
DX: K92.1 Melena (principal); K57.30 Diverticulosis of large intestine without perforation or abscess without bleeding; D50.0 Iron deficiency anemia secondary to blood loss (chronic); I10 Essential (primary) hypertension; Z79.01 Long term (current) use of anticoagulants
CPT/HCPCS: 45378; 36415; 85610; 85730; J2704; J7120

== ENCOUNTER 2022-02-17 09:06 | Outpatient (CLI) | payer MEDICARE, SELFPAY ==
[2022-02-17 09:19] LABS: Basophils Absolute Auto 0.02 K/mm3 (0.00-0.10); Basophils Percent Auto 0.4 % (0.0-1.0); Eosinophils Absolute Auto 0.18 K/mm3 (0.02-0.50); Eosinophils Percent Auto 3.7 % (1.0-6.0); Hematocrit 41.5 % (37.0-46.0); Hemoglobin 13.2 g/dL (12.4-15.3); Immature Granulocyte Absolute 0.02 K/mm3 (0.00-0.00); Immature Granulocyte Percent A 0.4 % (0.0-0.0); Lymphocytes Absolute Auto 1.22 K/mm3 (1.10-4.50); Lymphocytes Percent Auto 25.1 % (18.0-42.0); Mean Corpuscular HGB Conc 31.8 g/dL (32.0-36.0); Mean Corpuscular Hemoglobin 33.5 pg (27.0-31.0); Mean Corpuscular Volume 105.3 fL (78.0-102.0); Mean Platelet Volume 8.6 fl (8.7-11.0); Monocytes Absolute Auto 0.69 K/mm3 (0.10-0.90); Monocytes Percent Auto 14.2 % (2.0-11.0); Neutrophils Absolute Auto 2.7 K/mm3 (1.7-7.2); Neutrophils Percent Auto 56.2 % (50.0-70.0); Platelet Count Result 150 K/mm3 (150-420); Red Blood Count 3.94 M/mm3 (4.70-6.10); Red Cell Distribution Width 12.6 % (11.6-14.4); White Blood Count 4.9 K/mm3 (4.8-10.8)
[2022-02-17 09:30] LABS: INR 1.8
[2022-02-17 09:47] LABS: Ferritin 253 ng/mL (26-388); Iron 59 ug/dL (65-175)
== END 2022-02-17 09:07 | disposition home or self-care (01) ==
LOC: CHSLAB 09:08
PROVIDERS: PCP Internal Medicine; Visit Provider Internal Medicine Cardiovascular Disease
DX: I48.0 Paroxysmal atrial fibrillation (principal); Z79.01 Long term (current) use of anticoagulants
CPT/HCPCS: 36415; 82728; 83540; 85025; 85610

== ENCOUNTER 2022-03-02 09:48 | Outpatient (CLI) | payer MEDICARE, BC, SELFPAY | END 2022-03-02 09:49 | disposition home or self-care (01) | PROVIDERS: PCP Internal Medicine; Visit Provider Internal Medicine | DX: H91.93 Unspecified hearing loss, bilateral (principal) | CPT/HCPCS: 99199 ==

== ENCOUNTER 2022-07-05 09:38 | Outpatient (RCR) | payer MEDICARE, BC, SELFPAY ==
[2022-06-06 10:22] LABS: INR 2.6; Prothrombin Time 26.8 Seconds (9.50-12.10)
[2022-07-05 10:28] LABS: INR 3.3; Prothrombin Time 32.4 Seconds (9.50-12.10)
== END 2022-09-04 23:59 | disposition home or self-care (01) ==
LOC: CHSLAB 09:38
PROVIDERS: PCP Internal Medicine; Visit Provider Internal Medicine Cardiovascular Disease
DX: I48.0 Paroxysmal atrial fibrillation (principal); Z79.01 Long term (current) use of anticoagulants
CPT/HCPCS: 36415; 85610

== ENCOUNTER 2022-07-25 11:48 | Outpatient (CLI) | payer MEDICARE, BC, SELFPAY ==
--- NOTE | ~2022-07-25 | CT_ITS ---
EXAMINATION: CT brain wo con INDICATION: Frequent falls, unsteady gait COMPARISON: None TECHNIQUE: Standard unenhanced head CT. The dose-length product (DLP) was 605.33 mGy-cm. The mA was a djusted according to patient size. Iterative reconstruction technique was employed. FINDINGS: There is no acute intraparenchymal hemorrhage. No evidence of mass lesion. No evidence of a cute infarction. There is mild periventricular and subcortical hypodensity probably related to small vessel ischemic disease. There is mild prominence of the sulci and ventricles related to cerebral atr ophy. Intracranial calcified cerebral atherosclerosis is noted. There are no extra-axial collections. There is no mass effect or midline shift. The orbits and soft tissues are unremarkable. There is mil d mucosal thickening of the paranasal sinuses. IMPRESSION: 1. No acute intracranial abnormality. 2. Age related findings. Reviewed, dictated and finalized at location B. CTOR VISUAL
--- NOTE | ~2022-07-25 | XR_ITS ---
Left Hand Technique: PA, oblique, and lateral views were obtained. Clinical History: Pain Findings: There is an oblique fracture of the second proximal phalanx, with intra-articular extension at the second MCP joint. Fracture is minimally displaced. There is also a small oblique, possibly in tra-articular fracture at the volar aspect of the base of the distal phalanx of the thumb. Joint spac es are preserved. Soft tissues are unremarkable. Impression: Oblique, mildly displaced intra-articular fracture of the proximal aspect of the second proximal phal anx. Small oblique, possibly intra-articular fracture at the volar aspect of the base of the distal phalan x of the thumb. Reviewed, dictated and finalized at location M. NDERER Impression: Oblique, mildly displaced intra-articular fracture of the proximal aspect of th e second proximal phalanx. Small oblique, possibly intra-articular fracture at the volar aspect of the bas e of the distal phalanx of the thumb.
--- NOTE | ~2022-07-25 | XR_ITS ---
EXAMINATION: XR chest 2V DATE: 07/25/2022 13:04 INDICATION: Shortness of breath with exertion TECHNIQUE: PA and lateral views of the chest are obtained. COMPARISON: 03/12/2018 FINDINGS: The lungs are free of acute opacities. There appear to be chronic lower lung zone predomina nt, peripheral opacities, consistent with chronic interstitial lung disease No pleural effusion or pn eumothorax. The cardiomediastinal silhouette is normal. There is moderate thoracic spondylosis. Crawley es of cardiac valve repair are noted. IMPRESSION: 1. No acute cardiopulmonary abnormality, possible chronic interstitial lung disease. Reviewed, dictated and finalized at location B. ATOR SERVICE TECHNICIAN IMPRESSION: 1. No acute cardiopulmonary abnormality, possible chronic interstitial lung dis ease.
--- NOTE | ~2022-07-25 | XR_ITS ---
Thoracic spine: Clinical Indication: Pain AP and lateral views were performed. No fracture is seen. There is normal alignment of the vertebrae. The intervertebral disc spaces appe ar normal. Paravertebral soft tissues appear normal. Impression: No significant abnormalities noted. Reviewed, dictated and finalized at [facility]. GROWER Impression: No significant abnormalities noted.
--- NOTE | ~2022-07-25 | XR_ITS ---
Lumbosacral Spine: AP and lateral views Clinical History: Pain Findings: There is mild dextroscoliosis. No acute fracture or subluxation evident. There is advanced facet arthropathy at L4-L5 and L5-S1. There are mild scattered degenerative disc changes throughout t he lumbar spine. The sacroiliac joints are normally outlined. Impression: No fracture or subluxation. Degenerative spondylosis, as above. Reviewed, dictated and finalized at location . UCT MARKETING DIRECTOR Impression: No fracture or subluxation. Degenerative spondylosis, as above.
--- NOTE | ~2022-07-25 | XR_ITS ---
AP view of the pelvis and AP and lateral views of the bilateral hips Clinical history: Pain Findings: No acute fracture or dislocation is seen. Osseous alignment is anatomic. Bilateral hip and SI joint spaces are preserved. Soft tissues are unremarkable. Impression: No definite fracture or dislocation seen. Right femoral neck is somewhat suboptimally evaluated due t o patient positioning. If there is persistent clinical concern for right hip fracture, then MRI would be recommended as the most sensitive exam to confirm or exclude. Reviewed, dictated and finalized at location M. LITY ENGINEER Impression: No definite fracture or dislocation seen. Right femoral neck is somewhat subopt imally evaluated due to patient positioning. If there is persistent clinical co ncern for right hip fracture, then MRI would be recommended as the most sensiti ve exam to confirm or exclude.
[2022-07-25 12:05] LABS: Basophils Absolute Auto 0.02 K/mm3 (0.00-0.10); Basophils Percent Auto 0.3 % (0.0-1.0); Eosinophils Absolute Auto 0.29 K/mm3 (0.02-0.50); Eosinophils Percent Auto 4.3 % (1.0-6.0); Hematocrit 38.8 % (37.0-46.0); Hemoglobin 12.6 g/dL (12.4-15.3); Immature Granulocyte Absolute 0.05 K/mm3 (0.00-0.00); Immature Granulocyte Percent A 0.7 % (0.0-0.0); Lymphocytes Percent Auto 11.8 % (18.0-42.0); Mean Corpuscular HGB Conc 32.5 g/dL (32.0-36.0); Mean Corpuscular Hemoglobin 34.6 pg (27.0-31.0); Mean Corpuscular Volume 106.6 fL (78.0-102.0); Mean Platelet Volume 9.3 fl (8.7-11.0); Monocytes Absolute Auto 0.66 K/mm3 (0.10-0.90); Monocytes Percent Auto 9.8 % (2.0-11.0); Neutrophils Absolute Auto 4.9 K/mm3 (1.7-7.2); Neutrophils Percent Auto 73.1 % (50.0-70.0); Platelet Count Result 141 K/mm3 (150-420); Red Blood Count 3.64 M/mm3 (4.70-6.10); Red Cell Distribution Width 13.1 % (11.6-14.4); White Blood Count 6.8 K/mm3 (4.8-10.8)
[2022-07-25 12:19] LABS: Prothrombin Time 30.2 Seconds (9.50-12.10)
[2022-07-25 12:20] LABS: Alanine Aminotransferase 20 U/L (16-63); Albumin Level 3.2 g/dL (3.4-5.0); Alkaline Phosphatase 93 U/L (46-116); Anion Gap 6 mmol/L (8-16); Aspartate Amino Transferase 23 U/L (15-37); Bilirubin,Total 1.1 mg/dL (0.00-1.00); Blood Urea Nitrogen 23 mg/dL (7-18); Calcium 8.8 mg/dL (8.5-10.1); Carbon Dioxide 26 mmol/L (21-32); Chloride 108 mmol/L (98-108); Estimated Glomerular Filt Rate > 60; Glucose 116 mg/dL (70-99); Osmolality Calculated 294 mOsm/kg (285-295); Potassium 4.1 mmol/L (3.5-5.1); Sodium 140 mmol/L (136-145); Total Protein 7.1 g/dL (6.4-8.2)
== END 2022-07-25 11:49 | disposition home or self-care (01) ==
PROVIDERS: PCP Internal Medicine; Visit Provider Internal Medicine
DX: S06.0X0A Concussion without loss of consciousness, initial encounter (principal); R51.9 Headache, unspecified; R06.09 Other forms of dyspnea; S69.92XA Unspecified injury of left wrist, hand and finger(s), initial encounter; M25.552 Pain in left hip; M25.551 Pain in right hip; M54.50 Low back pain, unspecified; S62.92XA Unspecified fracture of left hand, initial encounter for closed fracture; S62.522A Displaced fracture of distal phalanx of left thumb, initial encounter for closed fracture; M43.06 Spondylolysis, lumbar region
CPT/HCPCS: 36415; 70450; 71046; 72072; 72100; 73130; 73521; 80053; 85025; 85610

== ENCOUNTER 2022-07-26 10:39 | Outpatient (CLI) | payer MEDICARE, BC, SELFPAY ==
--- NOTE | ~2022-07-26 | CT_ITS ---
Noncontrast CT scan of the pelvis CLINICAL HISTORY: Multiple falls, difficulty walking TECHNIQUE: Axial noncontrast imaging of the pelvis was performed. Sagittal and coronal reformatted im ages were constructed. Dose reduction technique was used on this scan by utilizing automated exposure control and iterative reconstruction technique. FINDINGS: There is a nondisplaced, minimally impacted traumatic fracture through the subcapital porti on of the proximal right femoral neck. No other fracture identified. Bilateral hip and SI joint space s are preserved. Small right hip joint effusion present. There are small bilateral fat-containing inguinal hernias, with small amount of fluid in the right-si ded hernia as well. Partially imaged fat-containing ventral hernias are noted superiorly. Prostate gl and is markedly enlarged. IMPRESSION: Nondisplaced, minimally impacted traumatic fracture through the subcapital right femoral neck. Bilateral fat-containing hernias as well as partially imaged, fat-containing ventral hernias. Enlarged prostate gland. Message left for Dr. Nicholson regarding the above findings. Reviewed, dictated and finalized at location . REL PRESS HAND IMPRESSION: Nondisplaced, minimally impacted traumatic fracture through the subcapital righ t femoral neck. Bilateral fat-containing hernias as well as partially imaged, fat-containing ve ntral hernias. Enlarged prostate gland. Message left for Dr. Nicholson regarding the above findings.
== END 2022-07-26 10:40 | disposition home or self-care (01) ==
LOC: CHSIMG 10:41
PROVIDERS: PCP Internal Medicine; Visit Provider Internal Medicine
DX: M53.3 Sacrococcygeal disorders, not elsewhere classified (principal); S72.011A Unspecified intracapsular fracture of right femur, initial encounter for closed fracture; K43.9 Ventral hernia without obstruction or gangrene; N40.0 Benign prostatic hyperplasia without lower urinary tract symptoms
CPT/HCPCS: 72192

== ENCOUNTER 2022-07-26 15:19 | Inpatient (IN) | payer MEDICARE, BC, SELFPAY ==
[2022-07-26] VITALS (15 sets, daily range): BP systolic 119–147; BP diastolic 61–82; PULSE 47–115; RESP 11–25; TEMP 36.4; O2SAT 91–100; BMI 26.3
--- NOTE | ~2022-07-26 | XR_ITS ---
EXAMINATION: XR surgery orthopedic DATE: 07/27/2022 18:13 INDICATION: Right hip subcapital fracture for pinning TECHNIQUE: 3 fluoroscopic images of the right hip were obtained during procedure performed by Dr. Chloe cummins. Radiologist was not present for the imaging or procedure. The amount of fluoroscopy time used d uring this procedure was 1.6 minutes. COMPARISON: 07/26/2022 FINDINGS: Again seen is a lateral impacted subcapital fracture at the proximal right femur which is now fixed w ith 3 cannulated lag screws. Femoral head remains normally centered in the right acetabulum. No new f ractures identified. Mild right hip osteoarthritis. IMPRESSION: 1. Lag screw fixation of a laterally impacted subcapital fracture of the proximal right femur which r emains in near-anatomic alignment. Reviewed, dictated and finalized at location A. ROUTER IMPRESSION: 1. Lag screw fixation of a laterally impacted subcapital fracture of the proxim al right femur which remains in near-anatomic alignment.
--- NOTE | ~2022-07-26 | CT_ITS ---
EXAMINATION: CT cervical spine wo con DATE: 07/26/2022 16:44 INDICATION: Neck pain post fall TECHNIQUE: Computed tomography (CT) of the cervical spine was performed without intravenous contrast. Automated exposure control and iterative reconstruction technique were employed. The dose-length pro duct was 212.21 mGy-cm. COMPARISON: 06/19/2014 FINDINGS: 10 degrees cervicothoracic levocurvature. Sagittal alignment is normal. Vertebral body heights are no rmal. No fractures. Moderate disc height loss at C3-C4, C5-C6 and C6-C7 with associated moderate to s evere uncovertebral osteoarthritis and posterior disc osteophyte complexes resulting in mild central canal and mild bilateral neural foraminal stenosis at each of these levels. Mild disc height loss at C2-C3 and C4-C5. Multilevel cervical facet osteoarthritis, severe on the right at C4-C5 and moderate at the majority the remaining cervical levels along with additional mild to moderate uncovertebral os teoarthritis resulting in mild stenosis at many of the remaining cervical neural foramina. Cervical s oft tissues are unremarkable. Mild biapical pleural-parenchymal scarring. IMPRESSION: 1. Mild cervical thoracic levocurvature with moderate spondylosis. No acute osseous abnormality. Reviewed, dictated and finalized at location A. ORA OPERATIONS CONSULTANT IMPRESSION: 1. Mild cervical thoracic levocurvature with moderate spondylosis. No acute oss eous abnormality.
--- NOTE | ~2022-07-26 | XR_ITS ---
EXAMINATION: XR ribs RT 2V w CXR 2V DATE: 07/26/2022 17:15 INDICATION: Right posterior rib pain and bruising post fall TECHNIQUE: AP and lateral views of the chest and 3 views of the right ribs were obtained. COMPARISON: Chest radiograph dated 07/25/2022 FINDINGS: Chronic anterior right seventh rib fracture which can be seen on CT dated 06/16/2018. No acute rib fr actures identified. Persistent mild bibasilar opacities. No pleural effusion or pneumothorax. Cardiom egaly. Median sternotomy wires and mediastinal surgical clips are seen, likely from prior coronary ar marisol bypass grafting. Mitral valve repair. Distal left clavicle resection. Cholecystectomy clips in t he right upper quadrant. IMPRESSION: 1. No acute rib fractures identified. 2. Unchanged mild bibasilar opacities which could represent atelectasis, mild pulmonary edema or more chronic interstitial lung disease. Reviewed, dictated and finalized at location A. COMPRESSOR ENGINEER IMPRESSION: 1. No acute rib fractures identified. 2. Unchanged mild bibasilar opacities which could represent atelectasis, mild p ulmonary edema or more chronic interstitial lung disease.
--- NOTE | ~2022-07-26 | XR_ITS ---
EXAMINATION: XR hand LT 2V DATE: 07/28/2022 11:37 INDICATION: Left hand injury. TECHNIQUE: 2 views of left hand were obtained. COMPARISON: Left hand radiographs 07/25/2022 FINDINGS: There is an oblique fracture of the radial side of the diaphysis of second proximal phalanx extending to the proximal articular surface with a 1 mm fracture gap. There is 1 mm step-off at the articular surface. There is an old healed fracture deformity of distal radius with dorsal tilt of the distal articular surface. There is a nondisplaced fracture of palmar base of first distal phalanx. T here is mild osteoarthritis of first carpometacarpal joint and some of the interphalangeal joints. IMPRESSION: 1. Unchanged oblique fracture of second proximal phalanx involving the proximal articular surface. 2. Nondisplaced fracture of palmar base of first distal phalanx. Reviewed, dictated and finalized at location A. T BINDING WORKER
--- NOTE | ~2022-07-26 | XR_ITS ---
EXAMINATION: XR hand RT min 3V DATE: 07/26/2022 17:15 INDICATION: Right hand injury TECHNIQUE: Posteroanterior, oblique and lateral views of the right hand were obtained. COMPARISON: None. FINDINGS: Old healed fracture deformity at the right third and fourth metacarpals. Alignment remains essentiall y anatomic. No acute fracture. Mild to moderate polyarticular osteoarthritis throughout the right bowesr d most prominent at the first carpometacarpal joint and multiple predominantly distal interphalangeal joints. IMPRESSION: 1. Old healed fractures of the right third and fourth metacarpals. No acute osseous abnormality. 2. 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 Reviewed, dictated and finalized at location A. IRATORY CARE ASSISTANT IMPRESSION: 1. Old healed fractures of the right third and fourth metacarpals. No acute oss eous abnormality. 2. 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
--- NOTE | ~2022-07-26 | XR_ITS ---
EXAMINATION: XR knee RT min 4V DATE: 07/26/2022 17:15 INDICATION: Right knee injury TECHNIQUE: Anteroposterior, 2 oblique and crosstable lateral views of the right knee were obtained COMPARISON: None. FINDINGS: No fracture. Mild genu varum resulting from osteoarthritis with severe joint space narrowing the medi al compartment. Small marginal osteophytes in the lateral and patellofemoral compartments. Small righ t knee joint effusion without layering lipohemarthrosis. Small amount of scattered atherosclerotic ca lcific location at the distal thigh and proximal calf. IMPRESSION: 1. 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 No fracture. Reviewed, dictated and finalized at location A. Y EQUIPMENT OPERATOR APPRENTICE
--- NOTE | 2022-07-26 15:36 | ECG_ITS ---
Measurements Intervals [place]in[place]re Rate: 61 P: MT: 0 QRS: 12 QRSD: 117 T: 59 QT: 471 QTc: 475 Interpretive Statements ATRIAL FIBRILLATION MODERATE INTRAVENTRICULAR CONDUCTION DELAY PROLONGED QT INTERVAL ABNORMAL ECG NO PREVIOUS ECG AVAILABLE FOR COMPARISON Electronically Signed On 07-27-2022 15:02:00 SLIVER CUTTER by Enio Galdamez M.D.
[2022-07-26 15:45] LABS: Basophils Percent Auto 0.4 % (0.2-1.2); Eosinophils Absolute Auto 0.4 K/mm3 (0-0.3); Eosinophils Percent Auto 6.2 % (0-4.4); Hematocrit 40.2 % (42.0-52.0); Hemoglobin 12.8 g/dL (14.0-18.0); Immature Granulocyte Absolute 0.04 K/mm3 (0.00-0.031); Immature Granulocyte Percent A 0.7 % (0-0.5); Lymphocytes Absolute Auto 0.87 K/mm3 (0.9-3.2); Lymphocytes Percent Auto 15.3 % (18.3-44.2); Mean Corpuscular HGB Conc 31.8 g/dl (32-36); Mean Corpuscular Hemoglobin 34.1 pg (26-34); Mean Corpuscular Volume 107.2 fl (80-100); Mean Platelet Volume 9.1 fl (7.4-10.4); Monocytes Absolute Auto 0.5 K/mm3 (0.1-0.6); Monocytes Percent Auto 9.5 % (2.6-8.5); Neutrophils Absolute Auto 3.9 K/mm3 (1.3-6.7); Neutrophils Percent Auto 67.9 % (45.5-73.1); Platelet Count Result 169 k/mm3 (150-375); Red Blood Count 3.75 M/mm3 (4.6-6.20); Red Cell Distribution Width 13.2 % (11.5-14.5); White Blood Count 5.7 K/mm3 (4.5-10.0)
[2022-07-26 15:55] LABS: Anion Gap 4 mmol/L (8-16); Blood Urea Nitrogen 24 mg/dL (9-20); Calcium 8.8 mg/dL (8.4-10.2); Carbon Dioxide 25 mmol/L (22-30); Chloride 110 mmol/L (98-107); Estimated CRCL calculation 50 ml/min; Estimated Glomerular Filt Rate > 60; Glucose 98 mg/dL (65-110); Potassium 4.6 mmol/L (3.4-5.0); Sodium 139 mmol/L (137-145)
[2022-07-26 15:57] LABS: INR 2.8; Prothrombin Time 28.3 Seconds (11.1-14.7)
[2022-07-26 16:22] LABS: Platelet Estimate Adequate (Adequate)
[2022-07-26 16:23] LABS: Macrocytosis 1+ (NORMAL); Schistocytes None Seen (NORMAL)
--- NOTE | 2022-07-26 16:47 | ED.LOWEXIN ---
HPI - Extremity Injury (Lower) General Chief Complaint: Extremity Injury, Lower <Fatou Rolle PA-C - Last Filed: 07/26/22 19:00> Stated Complaint: hip fracture <SHARMILA Hernandes Last Filed: 07/26/22 19:00> Time Seen by Provider: 07/26/22 15:33 <SHARMILA Hernandes Last Filed: 07/26/22 19:00> Source: patient <SHARMILA Hernandes Last Filed: 07/26/22 19:00> Mode of arrival: EMS <SHARMILA Hernandes Last Filed: 07/26/22 19:00> Limitations: other (poor historian) <SHARMILA Hernandes Last Filed: 07/26/22 19:00> History of Present Illness HPI Narrative: This is a 86 year old male that presents to the ER for a broken hip. Reports he fell 3 days ago. Reports losing his balance and falling forward. He did hit his head. Denies loss of consciousness. He was evaluated by his PCP for this and had several outpatient images. Was found to have a hip fracture as well as finger fractures and was sent to the ER for further management. Denies vision changes, vomiting, numbness or weakness. <Fatou Rolle PA-C - Last Filed: 07/26/22 19:00> Related Data Home Medications: Home Medications Medication Instructions Recorded Confirmed John-Sonido M20 20 meq PO DAILY 01/25/22 01/25/22 furosemide 20 mg tablet 20 mg PO DAILY 01/25/22 01/25/22 lisinopril 2.5 mg tablet 2.5 mg PO DAILY 01/25/22 01/25/22 lovastatin 40 mg tablet 40 mg PO DAILY 01/25/22 01/25/22 tamsulosin 0.4 mg capsule (Flomax) 0.4 mg PO DAILY 01/25/22 01/25/22 verapamil 40 mg tablet 40 mg PO DAILY 01/25/22 01/25/22 warfarin 5 mg tablet 5 mg PO DAILY 01/25/22 02/10/22 <SHARMILA Hernandes Last Filed: 07/26/22 19:00> Allergies/Adverse Reactions: Allergies Allergy/AdvReac Type Severity Reaction Status Date / Time No Known Allergies Allergy Mild Verified 02/10/22 07:35 <Fatou Rolle PA-C - Last Filed: 07/26/22 19:00> Review of Systems Review of Systems: CONSTITUTIONAL: Denies fever EYES: Denies visual changes CARDIOVASCULAR: Denies chest pain RESPIRATORY: Denies dyspnea. GASTROINTESTINAL: Denies vomiting MUSCULOSKELETAL: Reports joint pain and myalgia. Denies back pain NEUROLOGIC: Denies numbness, or weakness. <Fatou Rolle PA-C - Last Filed: 07/26/22 19:00> All systems reviewed & are unremarkable except as noted in HPI and below <Fatou Rolle PA-C - Last Filed: 07/26/22 19:00> [facility] Past Medical History Medical History: Medical History (Updated 07/26/22 @ 18:56 by Fatou Rolle PA-C) History of atrial fibrillation History of hyperlipidemia History of hypertension <Fatou Rolle PA-C - Last Filed: 07/26/22 19:00> Family History Family History: Family History (Updated 07/26/22 @ 21:36 by Herberth Corbin RN) Mother Heart disease Father Alcohol abuse by father Other Hypertension <Fatou Rolle PA-C - Last Filed: 07/26/22 19:00> Social History Social History: Social History Smoking status: Never smoker Alcohol intake: never Substance use: never Substance use type: does not use Living arrangements: with family Spiritual care concerns: No <Fatou Rolle PA-C - Last Filed: 07/26/22 19:00> Exam Narrative: GENERAL: Elderly, well-nourished, and in no acute distress. HEAD: Normocephalic. Superficial abrasions to the right side of the forehead EYES: PERRLA and EOMI. ENT: Nares clear, no rhinorrhea or epistaxis. Mucous membranes moist. Oropharynx without tonsillar hypertrophy exudate or other lesions. Bilateral TMs pearly posey non-bulging NECK: Supple. No adenopathy or masses. CHEST: Clear to auscultation. No respiratory distress. No wheezes rales or rhonchi HEART: Regular rate and rhythm. No murmur heard. Normal peripheral pulses. ABDOMEN: Soft, nontender, nondistended, normal active bowel sounds. BACK: No midline thoracic or lumbar spine tenderness EXTREMITIES: Normal range of motion, except decreased ROM in the right hi
[2022-07-26 18:41] LABS: Influenza A QL RT-PCR Negative (Negative); Influenza B QL RT-PCR Negative (Negative); SARS-CoV-2 RNA PCR Negative
--- NOTE | 2022-07-26 20:21 | PC.NURSE ---
pilar rowe [phone]
[2022-07-26] MEDS: PHYTONADIONE 5 MG TABLET 10 MG PO (20:22)
--- NOTE | 2022-07-26 21:13 | PM.IMHP ---
H&P: HPI History of Present Illness Date/Time: 07/26/22 21:13 Chief Complaint: Fall Narrative: This is a 86-year-old male patient who lives with his who has dementia. The patient takes care of his . The patient stated that he fell 3 days ago. He lost his balance coming into the door way from the porch. The patient fell forward. He did hit his head but denied loss of consciousness. The patient was evaluated by his primary care doctor and had several outpatient images. The patient was found have a hip fracture as well as of finger fracture and was sent to the emergency room for further management. The patient has no complaints at this time. H&H is 12.840.2. MCV is 107.2. The patient was negative for influenza A/B and COVID. Pelvis CT was read asNondisplaced, minimally impacted traumatic fracture through the subcapital right femoral neck. Bilateral fat-containing hernias as well as partially imaged, fat-containing ventral hernias. Enlarged prostate gland. Cervical spine read asMild cervical thoracic levocurvature with moderate spondylosis. No acute osseous abnormality. Hand x-ray1. Old healed fractures of the right third and fourth metacarpals. No acute osseous abnormality. 2. 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 Knee x-ray was read as. 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 No fracture. Ribs with chest x-ray read as the following. No acute rib fractures identified. 2. Unchanged mild bibasilar opacities which could represent atelectasis, mild pulmonary edema or more chronic interstitial lung disease. The patient is on Coumadin and he was given vitamin K. he was given Tylenol for the discomfort. Ortho has been consulted. The patient is being admitted to observation status on the date of service of 07/26/2022 Review of Systems Review of Systems: See HPI All systems reviewed & are unremarkable except as noted in HPI and below Constitutional: Constitutional: Reports as per HPI and Reports no additional constitutional complaints Eyes: Eyes: Reports as per HPI and Reports no additional eye complaints ENT: Reports system reviewed and no additional complaints, except as documented and Reports Normal hearing present Cardiovascular: Cardiovascular: Reports no additional cardiovascular complaints Respiratory: Respiratory: Reports no additional respiratory complaints and Reports no additional respiratory complaints Gastrointestinal: Gastrointestinal: Reports as per HPI and Reports no additional gastrointestinal complaints Musculoskeletal: Musculoskeletal: Reports no additional musculoskeletal complaints Integumentary/Breasts: Skin/Breast: Reports system reviewed and no additional complaints, except as docu and Reports as per HPI Neurologic: Reports system reviewed and no additional complaints, except as documented, Reports as per HPI and Reports Normal hearing present Psychiatric: Psychiatric: Reports no additional psychiatric complaints and Reports as per HPI Endocrine: Endocrine: Reports no additional endocrine complaints Hematologic/Lymphatic: Hematologic/Lymphatic: Reports no additional hematologic/lymphatic complaints Allergic/Immunologic: Allergic/Immunologic: Reports no additional allergic/immunologic complaints [facility] Past Medical History Medical History (Updated 07/27/22 @ 00:49 by Aletha Acuna NP) Atrial fibrillation BPH (benign prostatic hyperplasia) History of atrial fibrillation History of hyperlipidemia History of hypertension Hyperlipidemia Surgical History Surgical History (Updated 07/27/22 @ 00:56 by Aletha Acuna NP) H/O arthroscopic knee surgery H/O hernia repair Heart valve replaced Hx of cholecystectomy S/P tonsillectomy and adenoidectomy Family History Family History (Updated 07/27/22 @ 00:50 by Aletha Acuna NP) Mother Heart disease Father Alcohol abuse by kayleen
--- NOTE | 2022-07-26 21:31 | ADMGEN ---
This patient, America Weinberg, was admitted to [facility] Surg Room 303-01. Patient/family oriented to hospital policies and general routines including ID bracelet, bed and alarms, visiting hours, pain management, procedures, bathroom and other care routines, personal items, smoking policy, room service/diet, and visiting hours. Information on how to activate the Rapid Response Team has been discussed. Patient/Family are encouraged to report perceived risks to care and to ask questions if they do not understand what they are told or what they should do.
--- NOTE | 2022-07-26 22:43 | PC.NURSE ---
Pt A&Ox4. pt sent from ED with paper copy of current medication record. medications listed in home med record in EHR reviewed with pt. Pt able to tell us that he last took all medications in EHR yesterday except his warfarin which he states he took today. pt all medications reviewed and pt stated he did not take any other medications. Medication rec completed per pt
[2022-07-27] VITALS (8 sets, daily range): BP systolic 90–126; BP diastolic 71–92; PULSE 72–108; RESP 16–20; TEMP 36.1–37.4; O2SAT 94–100
[2022-07-27 06:01] LABS: Basophils Percent Auto 0.3 % (0.2-1.2); Eosinophils Absolute Auto 0.4 K/mm3 (0-0.3); Eosinophils Percent Auto 6.2 % (0-4.4); Hematocrit 38.4 % (42.0-52.0); Hemoglobin 12.2 g/dL (14.0-18.0); Immature Granulocyte Absolute 0.03 K/mm3 (0.00-0.031); Immature Granulocyte Percent A 0.5 % (0-0.5); Lymphocytes Absolute Auto 0.78 K/mm3 (0.9-3.2); Lymphocytes Percent Auto 12.4 % (18.3-44.2); Mean Corpuscular HGB Conc 31.8 g/dl (32-36); Mean Corpuscular Hemoglobin 33.2 pg (26-34); Mean Corpuscular Volume 104.6 fl (80-100); Mean Platelet Volume 9.2 fl (7.4-10.4); Monocytes Absolute Auto 0.5 K/mm3 (0.1-0.6); Monocytes Percent Auto 8.4 % (2.6-8.5); Neutrophils Absolute Auto 4.5 K/mm3 (1.3-6.7); Neutrophils Percent Auto 72.2 % (45.5-73.1); Platelet Count Result 174 k/mm3 (150-375); Red Blood Count 3.67 M/mm3 (4.6-6.20); Red Cell Distribution Width 13.2 % (11.5-14.5); White Blood Count 6.3 K/mm3 (4.5-10.0)
[2022-07-27 06:11] LABS: INR 2.3; Prothrombin Time 24.7 Seconds (11.1-14.7)
[2022-07-27 06:13] LABS: Alanine Aminotransferase 19 U/L (6-50); Albumin Level 3.6 g/dL (3.5-5.1); Alkaline Phosphatase 97 U/L (38-126); Anion Gap 6 mmol/L (8-16); Aspartate Amino Transferase 29 U/L (17-59); Bilirubin,Total 1.4 mg/dL (0.2-1.3); Blood Urea Nitrogen 20 mg/dL (9-20); Calcium 8.8 mg/dL (8.4-10.2); Carbon Dioxide 24 mmol/L (22-30); Chloride 106 mmol/L (98-107); Estimated CRCL calculation 62 ml/min; Estimated Glomerular Filt Rate > 60; Glucose 87 mg/dL (65-110); Magnesium 2.1 mg/dL (1.6-2.3); Potassium 3.9 mmol/L (3.4-5.0); Sodium 136 mmol/L (137-145)
[2022-07-27] MEDS: LOVASTATIN 20 MG TABLET 40 MG PO (08:15)
[2022-07-27] MEDS: VERAPAMIL HCL 40 MG TABLET PO (08:15)
[2022-07-27] MEDS: TAMSULOSIN HCL 0.4 MG CAPSULE PO (08:15)
[2022-07-27 09:51] LABS: Free T4 Free Thyroxine Reflex 0.84 ng/dL (0.78-2.19)
[2022-07-27 10:49] LABS: Total Triiodothyronine (T3) 1.64 NG/ML (0.97-1.69)
--- NOTE | 2022-07-27 11:03 | PM.CNCAR ---
Assessment and Plan Assessment and plan (1) Atrial fibrillation: Code(s): I48.91 - Unspecified atrial fibrillation Status: Acute (2) Closed subcapital fracture of neck of right femur: Qualifiers: Encounter type: initial encounter Qualified Code(s): S72.011A - Unspecified intracapsular fracture of right femur, initial encounter for closed fracture Code(s): S72.011A - Unspecified intracapsular fracture of right femur, initial encounter for closed fracture Status: Acute (3) Finger fracture, left: Qualifiers: Encounter type: initial encounter Finger: index finger Fracture alignment: displaced Fracture type: closed Phalanx: proximal Qualified Code(s): S62.611A - Displaced fracture of proximal phalanx of left index finger, initial encounter for closed fracture Code(s): S62.609A - Fracture of unspecified phalanx of unspecified finger, initial encounter for closed fracture Status: Acute (4) Hyperlipidemia: Code(s): E78.5 - Hyperlipidemia, unspecified Status: Acute (5) H/O mitral valve repair: Code(s): Z98.890 - Other specified postprocedural states Status: Acute Plan This is an 86-year-old male who sees Dr. Sanchez. He has a history of severe mitral regurgitation secondary to mitral valve prolapse and underwent mitral valve repair by Dr. Ronquillo in 2003. He also has paroxysmal atrial fibrillation with rate control strategy and anticoagulation with Warfarin. Also has a history of hypertension, dilated aortic root, tricuspid regurgitation. Last saw Dr. Sanchez and CT Surgery in March 2022, where he was doing well at that time. TTE 03/2022 showed stable findings with LVEF 65%, severe enlargement of left atrium, mild mitral valve regurgitation, mean gradient of mitral valve 12mmHg, no , mild AR, moderate TR. Patient is currently in rate-controlled AFIB. Not in decompensated heart failure. Patient is on both Verapamil and Toprol at home. His Verapamil has already been restarted. I will restart his Metoprolol. His Warfarin is on hold. Currently awaiting Ortho eval. If patient needs surgery for his hip fracture -- from a cardiac standpoint he is stable for surgery and would not require any further cardiac workup/evaluation prior to surgery. Can continue to hold his Warfarin. If no surgery is planned, would resume Warfarin with goal INR 2-3. If surgery is planned, can resume Warfarin when stable from a surgical standpoint. He does not need bridging anticoagulation. Cardiology will follow as needed. History of Present Illness History of Present Illness Consult date/time: 07/27/22 11:03 Requesting physician: Danny Childers MD Consult reason: atrial fibrillation Reason For Visit: Right subcapital femoral neck fx, frequent falls Narrative: We are consulted for atrial fibrillation and valvular heart disease in the setting of hip fracture. This is an 86-year-old male who sees Dr. Sanchez. He has a history of severe mitral regurgitation secondary to mitral valve prolapse and underwent mitral valve repair by Dr. Ronquillo in 2003. He also has paroxysmal atrial fibrillation with rate control strategy and anticoagulation with Warfarin. Used to be on Amiodarone in the past but it was discontinued due to possible pulmonary toxicity. Also has a history of hypertension, dilated aortic root, tricuspid regurgitation. Last saw Dr. Sanchez and CTS in March 2022, where he was doing well at that time. TTE 03/2022 showed stable findings with LVEF 65%, severe enlargement of left atrium, mild mitral valve regurgitation, mean gradient of mitral valve 12mmHg, no , mild AR, moderate TR. Patient presents to the hospital after sustaining a fall on Monday morning. He reports that he was going outside to hop picker newspaper when he missed a step (step had wooden board on it). He fell down. No syncope. Patient was in his usual state of health prior to this. Patient was evaluated by
--- NOTE | 2022-07-27 11:48 | PM.IMPN ---
Progress Note: A&P Assessment and Plan (1) Closed subcapital fracture of neck of right femur: Qualifiers: Encounter type: initial encounter Qualified Code(s): S72.011A - Unspecified intracapsular fracture of right femur, initial encounter for closed fracture Code(s): S72.011A - Unspecified intracapsular fracture of right femur, initial encounter for closed fracture Status: Acute Assessment and Plan: -ortho has been consulted. -customer care team coach for possible placement (2) Atrial fibrillation: Code(s): I48.91 - Unspecified atrial fibrillation Status: Acute Assessment and Plan: Coumadin is on hold. -patient's heart rate was 115 and he is in AFib Continue with verapamil (3) BPH (benign prostatic hyperplasia): Code(s): N40.0 - Benign prostatic hyperplasia without lower urinary tract symptoms Status: Acute Assessment and Plan: Continue with Flomax (4) Hyperlipidemia: Code(s): E78.5 - Hyperlipidemia, unspecified Status: Acute Assessment and Plan: -continue with lovastatin (5) Heart valve replaced: Code(s): Z95.2 - Presence of prosthetic heart valve Status: Acute Assessment and Plan: The patient is on Coumadin but is currently on hold. Subjective Date/time seen: 07/27/22 11:48 No new complaints Exam Const: General: cooperative, healthy appearing, comfortable, no acute distress, well developed, alert, awake, Physically active, average body habitus, well nourished and thin Nutritional Appearance: average body habitus, well nourished and thin Orientation/consciousness: oriented to person, oriented to place, oriented to time and patient oriented x3 Limitations: no limitations HENMT: Head: normal to inspection, No palpable skull fracture present, normocephalic and atraumatic Ears: hearing grossly normal bilaterally and external ears normal Face/Nose/Sinus: Normal external nose present and Normal nares present Eyes: General: appearance normal, both eyes and all related structures Alignment and Position: alignment normal Periorbital: periorbital findings normal Eyelids: eyelids normal Sclera: sclerae normal Pupils: Equal, round and reactive pupils present EOM: EOMs intact bilaterally Neck: Neck: normal visual inspection, full ROM, no lymphadenopathy, trachea midline and supple Thyroid: thyroid normal Chest: Chest palpation & inspection: normal inspection of the chest Resp: Effort & Inspection: normal respiratory effort Auscultation: clear to auscultation bilaterally Cardio: Palpation: normal PMI Rate: regular rate Rhythm: abnormal rhythm Heart sounds: S1 normal heart sound present and S2 normal heart sound present Peripheral pulses: Peripheral pulses 2+ throughout Other: Atrial fibrillation GI: Inspection: normal to inspection Auscultation: normal bowel sounds Rectal Exam: deferred Back/Spine/Pelvis: Cervical Spine: cervical ROM normal Skin: General skin exam: normal color Lesions: no lesions Rashes: no rashes Trauma: no lacerations or abrasions Hair: normal Nails: normal Other: The patient has abrasions to the left side of the top of his head. He has a dressing to the left forearm. Neuro: General: oriented to person, oriented to place, oriented to time and patient oriented x3 Cranial nerves: Yes Equal, round and reactive pupils present and Yes Normal hearing present Cognition (Neuro): normal cognition Speech: normal speech Sensory Exam: normal sensation Extrem: General: normal to inspection Right upper extremity: normal to inspection and shoulder/upper arm Left upper extremity: normal to inspection and shoulder/upper arm Right lower extremity: lower leg Left lower extremity: normal to inspection Other: Right lower extremity is slightly shorter than the left no external rotation is noted Psych: Appearance: grossly normal Mental Status: mental status grossly normal Speech and movement: Clear sp
--- NOTE | 2022-07-27 12:05 | WPDCN ---
Assessment and Plan Assessment and plan (1) Finger fracture, left: Qualifiers: Encounter type: initial encounter Finger: index finger Fracture alignment: displaced Fracture type: closed Phalanx: proximal Qualified Code(s): S62.611A - Displaced fracture of proximal phalanx of left index finger, initial encounter for closed fracture Code(s): S62.609A - Fracture of unspecified phalanx of unspecified finger, initial encounter for closed fracture Status: Acute Assessment and Plan: Slightly displaced intraarticular oblique fracture of the left 2nd proximal phalanx without deformity. Plan Will plan to address this with kenny taping for now and reevaluate with x-ray is a few days. Hope to begin early ROM. HPI Data of Consult Date/Time: 07/27/22 12:05 Requesting Physician: Una Leonard MD Primary Care Provider: Von Nicholson MD Consult Narrative Narrative: America Weinberg is a 86 year old male admitted after a fall or two at his home, outdoors and indoors on 07/23/22, three days prior to admission. Admitted for right hip fracture. Also noted to have an intra articular oblique fracture of the left 2nd proximal phalanx. This is a closed fracture with extensive bruising, mild swelling and only slight interference with ROM. A small nondisplaced fracture of the volar base of the left 1st distal phalanx is also noted. Pt has significant dysarthria which greatly slows his story telling. He gave a detailed report [id number] of his falls. 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 An eldest daughter lives just blocks away and does visit daily to help with care. The has now been relocated to the home of the daughter. Pt is on Warfarin. INR 2.3. A fib. Hx of mitral valve repair. [facility] Past Medical History Medical History Atrial fibrillation BPH (benign prostatic hyperplasia) History of atrial fibrillation History of hyperlipidemia History of hypertension Hyperlipidemia Surgical History Surgical History H/O arthroscopic knee surgery H/O hernia repair Heart valve replaced Hx of cholecystectomy S/P tonsillectomy and adenoidectomy Family History Family History Mother Heart disease Father Alcohol abuse by father Sibling Acute myocardial infarction Other Hypertension Social History Social History Social History: The patient lives with his who has dementia and he has been caring for her. They have had 3 children. He is retired from [employer]. Code status full code Smoking status: Never smoker Second hand tobacco smoke exposure: No Alcohol intake: never Substance use: never Substance use type: does not use Living arrangements: with family Spiritual care concerns: No Meds Home Medications and Allergies Home Medications Medication Instructions Recorded Confirmed Type Klor-Con M20 20 meq PO DAILY 01/25/22 07/26/22 History furosemide 20 mg tablet 20 mg PO DAILY 01/25/22 07/26/22 History lisinopril 2.5 mg tablet 2.5 mg PO DAILY 01/25/22 07/26/22 History lovastatin 40 mg tablet 40 mg PO DAILY 01/25/22 07/26/22 History tamsulosin 0.4 mg capsule (Flomax) 0.4 mg PO DAILY 01/25/22 07/26/22 History verapamil 40 mg tablet 40 mg PO DAILY 01/25/22 07/26/22 History warfarin 5 mg tablet 5 mg PO DAILY 01/25/22 07/26/22 History Allergies Allergy/AdvReac Type Severity Reaction Status Date / Time No Known Allergies Allergy Mild Verified 02/10/22 07:35 Vital Signs Vital Signs - 24 hr 07/26/22 15:21 07/26/22 15:31 07/26/22 15:45 Temperature 97.5 F L Pulse Rate 62 56 L 52 L Respiratory Rate 19 11 L 15 Blood Pressu
--- NOTE | 2022-07-27 12:33 | PM.CNOR ---
History of Present Illness HPI Consult date: 07/27/22 <NAS Hallman - Last Filed: 07/27/22 12:38> 07/27/22 <Danny Childers MD - Last Filed: 07/27/22 16:09> Chief complaint: Right subcapital femoral neck fx, frequent falls <NAS Hallman - Last Filed: 07/27/22 12:38> Narrative: 86-year-old male who fell early Monday morning approximately 4 days ago. He outside getting the paper when he walked back in the house he caught his foot on the threshold falling. He did have some minor discomfort he states in the right hip but was able to weight has walking on it since that time. Pain is gotten little bit worse. He came in to the emergency room last night. X-rays show a mildly valgus impacted right femoral neck fracture. He also had a CT scan done of the hip to evaluate. Patient also had x-rays of the right hand which show a fracture the proximal phalanx of the index finger. Dr. Rizvi is seeing him for this. Physical exam 86-year-old male he is alert. He does stutter when he talks but it is clear. He answers questions appropriately. He has mild discomfort with range of motion of the right hip. He is unable to do a Stinchfield maneuver due to pain in the right hip. He has no increased swelling in either lower extremity. 2+ dorsalis pedis pulse in the foot. Impression 86-year-old male who has a mildly impacted right femoral neck fracture. This will be amendable to pending insitu to surgical procedure. Cardiology has seen the patient and has been cleared. His INR was elevated 2.3 last night. He was given vitamin K and we be checking an INR briefly. Hopefully will be 1.5 her under and in which case we will proceed to surgery later today. If we may need to wait until tomorrow for the INR to get to a safe level. Patient will be strict toe-touch weight-bearing on the right lower extremity after surgery. Unfortunately also has a fracture in the left index finger and we will need to get a walker with a forearm platform on the left to protect the hand well he is using the walker. We will work on this postoperatively. Dr. Perdue will see the patient prior to surgery is discussed risks and complications. I did discuss with him these as well. We will also check a vitamin D and supplemented it was found to be low. <NAS Hallman - Last Filed: 07/27/22 12:38> [facility] Past Medical History Medical History: Medical History Atrial fibrillation BPH (benign prostatic hyperplasia) History of atrial fibrillation History of hyperlipidemia History of hypertension Hyperlipidemia <NAS Hallman - Last Filed: 07/27/22 12:38> Surgical History Surgical History: Surgical History H/O arthroscopic knee surgery H/O hernia repair Heart valve replaced Hx of cholecystectomy S/P tonsillectomy and adenoidectomy <NAS Hallman - Last Filed: 07/27/22 12:38> Family History Family History: Family History Mother Heart disease Father Alcohol abuse by father Sibling Acute myocardial infarction Other Hypertension <NAS Hallman - Last Filed: 07/27/22 12:38> Social History Social History: Social History Social History: The patient lives with his who has dementia and he has been caring for her. They have had 3 children. He is retired from [employer] Code status full code Smoking status: Never smoker Second hand tobacco smoke exposure: No Alcohol intake: never Substance use: never Substance use type: does not use Living arrangements: with family Spiritual care concerns: No <NAS Hallman - Last Filed: 07/27/22 12:38> Meds Home Medications and Allergies Home medications: Home Medications Medication Instructions Recorded
[2022-07-27 13:07] LABS: INR 1.8; Prothrombin Time 19.9 Seconds (11.1-14.7)
[2022-07-27] MEDS: METOPROLOL SUCCINATE EXT REL 25 MG TABCR PO (13:30)
[2022-07-27 13:42] LABS: Vitamin D 25 Hydroxy 42.4 ng/mL
--- NOTE | 2022-07-27 16:07 | WPDHPUPDATE1 ---
History and Physical Update Update Date/Time: 07/27/22 16:07 History and Physical has been reviewed, including an updated exam of the patient. There are NO changes in the patient's condition. Risks, benefits, and alternatives have been discussed and questions answered. Patient agrees to proceed with procedure. INR was 1.8 at 1:00 p.m. and falling. We will plan to proceed this afternoon with screw fixation right subcapital [place] 1 femoral neck fracture..
[2022-07-27] MEDS: TRANEXAMIC ACID 1,000MG/ISO100 1,000 MG/100 ML BAG 200 MG IVPB (16:37)
--- NOTE | 2022-07-27 16:41 | WPDANESEPPF ---
Anes - Initial Pre Proc Eval Procedure: Operation Date: 07/27/22 17:00 Proposed Procedures p Right Hip Pinning - Danny Childers MD Date/Time: 07/27/22 16:41 Surgeon: Una Leonard MD Pre Op Diagnosis: Right subcapital femoral neck fx, frequent falls Patient Data Age: 86 Gender: M Height: 1.71 m Weight: 77.3 kg Last Vital Signs Temp 37.4 C 07/27/22 15:46 Pulse 108 H 07/27/22 15:46 Resp 18 07/27/22 15:46 BP 115/71 07/27/22 15:46 Pulse Ox 98 07/27/22 15:46 O2 Del Method Room Air 07/27/22 15:46 Allergies Allergy/AdvReac Type Severity Reaction Status Date / Time No Known Allergies Allergy Mild Verified 07/27/22 16:16 Home Medications Medication Instructions Recorded Confirmed Type Klor-Con M20 20 meq PO DAILY 01/25/22 07/26/22 History furosemide 20 mg tablet 20 mg PO DAILY 01/25/22 07/26/22 History lisinopril 2.5 mg tablet 2.5 mg PO DAILY 01/25/22 07/26/22 History lovastatin 40 mg tablet 40 mg PO DAILY 01/25/22 07/26/22 History tamsulosin 0.4 mg capsule (Flomax) 0.4 mg PO DAILY 01/25/22 07/26/22 History verapamil 40 mg tablet 40 mg PO DAILY 01/25/22 07/26/22 History warfarin 5 mg tablet 5 mg PO DAILY 01/25/22 07/26/22 History Laboratory Tests 07/26/22 07/27/22 07/27/22 17:36 05:25 05:25 WBC 6.3 K/mm3 K/mm3 (4.5-10.0) RBC 3.67 M/mm3 L M/mm3 (4.6-6.20) Hgb 12.2 g/dL L g/dL (14.0-18.0) Hct 38.4 % L % (42.0-52.0) MCV 104.6 fl H fl (80-100) MCH 33.2 pg pg (26-34) MCHC 31.8 g/dl L g/dl (32-36) RDW 13.2 % % (11.5-14.5) Plt Count 174 k/mm3 k/mm3 (150-375) MPV 9.2 fl fl (7.4-10.4) Immature Gran % (Auto) 0.5 % % (0-0.5) Neut % (Auto) 72.2 % % (45.5-73.1) Lymph % (Auto) 12.4 % L % (18.3-44.2) Nicollet % (Auto) 8.4 % % (2.6-8.5) Eos % (Auto) 6.2 % H % (0-4.4) Baso % (Auto) 0.3 % % (0.2-1.2) Lymph # (Auto) 0.78 K/mm3 L K/mm3 (0.9-3.2) Nicollet # (Auto) 0.5 K/mm3 K/mm3 (0.1-0.6) Eos # (Auto) 0.4 K/mm3 H K/mm3 (0-0.3) Baso # (Auto) 0.0 K/mm3 K/mm3 (0.0-0.1) Abs Immat Gran (auto) 0.03 K/mm3 K/mm3 (0.00-0.031) Absolute Neuts (auto) 4.5 K/mm3 K/mm3 (1.3-6.7) Absolute Nucleated RBC 0.0 K/mm3 K/mm3 (0.0-0.012) Nucleated RBC % 0.0 % % (0.0-0.2) PT 24.7 Seconds H Seconds (11.1-14.7) INR 2.3 Sodium Potassium Chloride Carbon Dioxide Anion Gap BUN Creatinine Estim Creat Clear Calc Estimated GFR Glucose Calcium Magnesium Total Bilirubin AST ALT Alkaline Phosphatase Total Protein Albumin Vitamin D 25-Hydroxy TSH (Reflex) Free T4 Total T3 Influenza A (RT-PCR) Negative (Negative) Influenza B (RT-PCR) Negative (Negative) SARS-CoV-2 RNA (RT-PCR) Negative 07/27/22 07/27/22 07/27/22 05:25 05:25 05:25 WBC RBC Hgb Hct MCV MCH MCHC RDW Plt Count MPV Immature Gran % (Auto) Neut % (Auto) Lymph % (Auto) Nicollet % (Auto) Eos % (Auto) Baso % (Auto) Lymph # (Auto) Nicollet # (Auto) Eos # (Auto) Baso # (Auto) Abs Immat Gran (auto) Absolute Neuts (auto) Absolute Nucleated RBC Nucleated RBC % PT INR Sodium 136 mmol/L L mmol/L (137-145) Potassium 3.9 mmol/L mmol/L (3.4-5
[2022-07-27] MEDS: LACTATED RINGERS 1,000 ML 30 ML IV CONT (16:45)
[2022-07-27] MEDS: ceFAZolin 2 GM/D5W 50 ML 2 GM/50 ML BAG IVPB (16:56)
[2022-07-27] MEDS: ceFAZolin SODIUM 1 GM VIAL (17:56)
[2022-07-27] MEDS: BUPivacaine HCL 0.5% PF 30 ML VIAL 10 ML INFILTRATE (17:57)
--- NOTE | 2022-07-27 18:18 | W.PM.PROC2 ---
Procedure Note - Detailed Date of Procedure 07/27/22 Pre-op Diagnosis Right subcapital femoral neck fx, Garden 1 impacted Post-op Diagnosis Same Procedure Performed Cannulated screw fixation insight to right subcapital femoral neck fracture Surgeon Danny Childers MD Call Center Team Leader Caleb Anesthesia General Description of Procedure Patient was brought to the operating room and general anesthesia was administered. The right hip was scrubbed with a chlorhexidine cloth. He was carefully moved to the fracture table the right foot padded and placed in a boot the left hip flexed abducted out of the way fluoro was brought in. Fracture was impacted primarily into valgus with some posterior impaction no gapping at the fracture site and I felt this was suitable for pinning insight to. The right hip was prepped and draped usual fashion. 1 in incision was made lateral thigh just distal to greater trochanter incision made through the skin and pin was placed inferiorly just proximal to the inferior femoral neck. Two additional pins were placed superiorly in the femoral head trying to be fairly central with all of the pins within the femoral head. Lateral cortices were drilled we inserted 2 85 mm Arthrex 7.0 mm cannulated short threaded screws superiorly and a 95 mm screw inferiorly. All 3 screws seemed to obtain very good purchase. Final fluoroscopic images were made confirming absence of subchondral bone penetration. Wound was thoroughly irrigated with antibiotic solution closed with 2 subcutaneous Vicryl and glue EBL negligible. He received 2 g of Ancef and weight based vancomycin preoperatively. No known complications. He was transferred to postop recovery room stable condition Complications No immediate complications Condition Stable Disposition PACU
[2022-07-27] MEDS: SODIUM CHLORIDE 0.9% IV 1,000 ML 80 ML IV CONT (20:59)
[2022-07-27] MEDS: WARFARIN (*PBKC) 5 MG TABLET PO (21:12)
[2022-07-28] VITALS (10 sets, daily range): BP systolic 109–122; BP diastolic 66–96; PULSE 75–121; RESP 14–20; TEMP 36.1–36.4; O2SAT 92–98
[2022-07-28 06:15] LABS: Hematocrit 40.5 % (42.0-52.0); Hemoglobin 13.1 g/dL (14.0-18.0); Immature Granulocyte Absolute 0.03 K/mm3 (0.00-0.031); Immature Granulocyte Percent A 0.6 % (0-0.5); Lymphocytes Percent Auto 8.2 % (18.3-44.2); Mean Corpuscular HGB Conc 32.3 g/dl (32-36); Mean Corpuscular Hemoglobin 34.2 pg (26-34); Mean Corpuscular Volume 105.7 fl (80-100); Monocytes Absolute Auto 0.3 K/mm3 (0.1-0.6); Monocytes Percent Auto 5.6 % (2.6-8.5); Neutrophils Absolute Auto 4.2 K/mm3 (1.3-6.7); Neutrophils Percent Auto 85.6 % (45.5-73.1); Platelet Count Result 181 k/mm3 (150-375); Red Blood Count 3.83 M/mm3 (4.6-6.20); Red Cell Distribution Width 13.1 % (11.5-14.5); White Blood Count 4.9 K/mm3 (4.5-10.0)
[2022-07-28 06:27] LABS: INR 1.5; Prothrombin Time 17.4 Seconds (11.1-14.7)
[2022-07-28 06:35] LABS: Anion Gap 8 mmol/L (8-16); Blood Urea Nitrogen 16 mg/dL (9-20); Calcium 8.4 mg/dL (8.4-10.2); Carbon Dioxide 21 mmol/L (22-30); Chloride 104 mmol/L (98-107); Estimated CRCL calculation 62 ml/min; Estimated Glomerular Filt Rate > 60; Glucose 149 mg/dL (65-110); Potassium 4.1 mmol/L (3.4-5.0); Sodium 133 mmol/L (137-145)
--- NOTE | 2022-07-28 07:31 | PM.PNORT ---
Progress Note: A&P Assessment and Plan (1) Closed subcapital fracture of neck of right femur: Qualifiers: Encounter type: initial encounter Qualified Code(s): S72.011A - Unspecified intracapsular fracture of right femur, initial encounter for closed fracture Code(s): S72.011A - Unspecified intracapsular fracture of right femur, initial encounter for closed fracture Status: Acute Assessment and Plan: patient is postop day 1. After pin fixation of valgus impacted right subcapital femoral neck fracture. He is doing well. He is alert and oriented to place person why is here in the year. He denies having any pain at rest at this time. He had no complaints. We will try to mobilize in bed to chair today. Subjective Subjective Date/Time Seen: 07/28/22 07:31 Objective Data Vital Signs Vital Signs: Vital Signs - 24 hr 07/27/22 14:00 07/27/22 13:30 07/27/22 15:46 Temperature 36.9 C 37.4 C Pulse Rate 108 H 72 108 H Respiratory Rate 18 18 Blood Pressure 117/91 H 115/71 Pulse Oximetry 96 98 Oxygen Delivery Room Air Oxygen Flow Rate 07/27/22 18:20 07/27/22 18:35 07/27/22 20:44 Temperature 36.2 C L 36.1 C L Pulse Rate 100 102 H 108 H Respiratory Rate 20 18 18 Blood Pressure 92/71 L 125/92 H 102/74 Pulse Oximetry 100 100 98 Oxygen Delivery Simple Face Mask Simple Face Mask Oxygen Flow Rate 8 8 07/27/22 23:57 07/28/22 00:00 07/28/22 04:31 Temperature 36.4 C 36.4 C L Pulse Rate 96 121 H 116 H Respiratory Rate 20 18 Blood Pressure 90/72 L 114/66 Pulse Oximetry 94 94 Oxygen Delivery Oxygen Flow Rate 07/28/22 04:00 07/28/22 04:00 Temperature Pulse Rate 109 H 109 H Respiratory Rate Blood Pressure Pulse Oximetry Oxygen Delivery Oxygen Flow Rate Intake/Output Intake/Output: Intake & Output 07/25/22 07/26/22 07/27/22 07/28/22 23:59 23:59 23:59 23:59 Intake Total 100 1065 250 Output Total 3100 750 Balance 100 -5 -500 Meds/Results Medications: Active Medications Generic Name Dose Route Start Last Admin Trade Name Freq PRN Reason Stop Dose Admin Acetaminophen 650 mg 07/28/22 20:00 Acetaminophen 325 Mg Tablet PO Q6H KYLE Cefazolin Sodium 1 gm in 50 mls @ 100 mls/hr 07/28/22 02:00 07/28/22 04:19 Ancef 1 Gm/D5w 50 Ml Pm IVPB 07/28/22 18:29 100 mls/hr Q8H KYLE Administration Acetaminophen 650 mg in 65 mls @ 260 mls/hr 07/27/22 20:00 07/28/22 04:12 Ofirmev 650 Mg Ivpb IVPB 07/28/22 14:14 260 mls/hr Q6H KYLE Administration Sodium Chloride 1,000 mls @ 80 mls/hr 07/27/22 18:59 07/27/22 20:59 Normal Saline Iv IV CONT 80 mls/hr .[id number] KYLE Administration Lisinopril 2.5 mg 07/27/22 09:00 Lisinopril 2.5 Mg Tablet PO DAILY [facility] Lovastatin 40 mg 07/27/22 09:00 07/27/22 08:15 Lovastatin 20 Mg Tablet PO 40 mg DAILY KYLE Administration Morphine Sulfate 1 mg 07/27/22 18:59 Morphine Sulfate (*Crx) 2 Mg/Ml Inj IV PUSH Q1H PRN Pain Rated 7-10 Naloxone HCl 0.1 mg 07/27/22 18:59 Naloxone Hcl 0.4 Mg/Ml Vial IV PUSH Q2M PRN Opiate Reversal Oxycodone HCl 2.5 mg 07/27/22 18:59 Oxycodone Hcl (*Crx) 2.5 Mg Tab Ir PO Q4H PRN Pain Rated 7-10 Polyethylene Glycol 17 gm 07/28/22 09:00 Polyethylene Glycol 3350 17 Gm Powd.Pack PO QAM [facility] Senna/Docusate Sodium 2 tab 07/28/22 09:00 Senna/Docusate Sodium Tablet PO BID [facility] Tamsulosin HCl 0.4 mg 07/27/22 09:00 07/27/22 08:15 Tamsulosin Hcl 0.4 Mg Capsule PO 0.4 mg DAILY [facility] Administration Verapamil HCl 40 mg 07/27/22 09:00 07/27/22 08:15 Verapamil Hcl 40 Mg Tablet PO 40 mg DAILY [facility] Administration Warfarin Sodium 5 mg 07/27/22 19:00 02/08/23 21:12 Warfarin (*Pbkc) 5 Mg Tablet PO 5 mg DAILY@1700 KYLE Administration Radiology Results: ITS Impressions Cervical Spine CT 07/26/22 16:46 IMPRESSION: 1. Mild cervical thoracic le
[2022-07-28] MEDS: LOVASTATIN 20 MG TABLET 40 MG PO (09:04)
[2022-07-28] MEDS: polyethylene glycoL 3350 17 GM POWD.PACK PO (09:04)
[2022-07-28] MEDS: SENNA/DOCUSATE SODIUM TABLET 2 TAB PO ×2 (09:05→17:34)
[2022-07-28] MEDS: lisinopriL 2.5 MG TABLET PO ×2 (09:05→09:12)
[2022-07-28] MEDS: TAMSULOSIN HCL 0.4 MG CAPSULE PO (09:05)
[2022-07-28] MEDS: VERAPAMIL HCL 40 MG TABLET PO (09:12)
--- NOTE | 2022-07-28 10:49 | WPDPN ---
Progress Note: A&P Assessment and Plan (1) Finger fracture, left: Qualifiers: Encounter type: initial encounter Finger: index finger Fracture alignment: displaced Fracture type: closed Phalanx: proximal Qualified Code(s): S62.611A - Displaced fracture of proximal phalanx of left index finger, initial encounter for closed fracture Code(s): S62.609A - Fracture of unspecified phalanx of unspecified finger, initial encounter for closed fracture Status: Acute Assessment and Plan: Moderately displaced intraarticular fracture of D2 P1. Functions well with taped fingers. Plan Will x-ray the left hand this afternoon to review the fragment position in kenny tape splint. Will determine if tape will be enough treatment for this elderly minimally active gent who will be undergoing PT for left hip repair. Will possibly re x-ray in a week at [facility]. Will coordinate any additional treatment, including possibly surgery, via my office and his nursing staff at rehab. Time Spent With Patient Time with patient: less than 15 minutes Subjective Date/time seen: 07/28/22 10:49 Interval history: Alert, entertaining his son and [id number]. Exam Narrative: Left index and middle have been kenny taped overnight. Bruising improved. Moves all digits into a fist and into full extension without pain. Will begin PT ambulation with a Left forearm support walker. Objective Data Vital Signs Vital Signs: Vital Signs - 24 hr 07/27/22 14:00 07/27/22 13:30 07/27/22 15:46 Temperature 98.4 F 99.3 F Pulse Rate 108 H 72 108 H Respiratory Rate 18 18 Blood Pressure 117/91 H 115/71 Pulse Oximetry 96 98 Oxygen Delivery Room Air Oxygen Flow Rate 07/27/22 18:20 07/27/22 18:35 07/27/22 20:44 Temperature 97.2 F L 97.0 F L Pulse Rate 100 102 H 108 H Respiratory Rate 20 18 18 Blood Pressure 92/71 L 125/92 H 102/74 Pulse Oximetry 100 100 98 Oxygen Delivery Simple Face Mask Simple Face Mask Oxygen Flow Rate 8 8 07/27/22 23:57 07/28/22 00:00 07/28/22 04:31 Temperature 97.6 F 97.5 F L Pulse Rate 96 121 H 116 H Respiratory Rate 20 18 Blood Pressure 90/72 L 114/66 Pulse Oximetry 94 94 Oxygen Delivery Oxygen Flow Rate 07/28/22 04:00 07/28/22 04:00 07/28/22 08:00 Temperature 96.9 F L Pulse Rate 109 H 109 H 99 Respiratory Rate 14 Blood Pressure 109/83 Pulse Oximetry 97 Oxygen Delivery Oxygen Flow Rate 07/28/22 08:00 07/28/22 08:50 07/28/22 08:00 Temperature 96.9 F L Pulse Rate 76 103 H 99 Respiratory Rate 16 14 Blood Pressure 109/83 Pulse Oximetry 92 97 Oxygen Delivery Room Air Oxygen Flow Rate Intake/Output Intake/Output: Intake & Output 07/25/22 07/26/22 07/27/22 07/28/22 23:59 23:59 23:59 23:59 Intake Total 100 1065 365 Output Total 3100 750 Balance 100 2039 -982 Meds/Results Medications: Active Medications Generic Name Dose Route Start Last Admin Trade Name Freq PRN Reason Stop Dose Admin Acetaminophen 650 mg 07/28/22 20:00 Acetaminophen 325 Mg Tablet PO Q6H KYLE Cefazolin Sodium 1 gm in 50 mls @ 100 mls/hr 07/28/22 02:00 07/28/22 09:09 Ancef 1 Gm/D5w 50 Ml Pm IVPB 07/28/22 18:29 100 mls/hr Q8H KYLE Administration Acetaminophen 650 mg in 65 mls @ 260 mls/hr 07/27/22 20:00 07/28/22 09:01 Ofirmev 650 Mg Ivpb IVPB 07/28/22 14:14 260 mls/hr Q6H KYLE Administration Sodium Chloride 1,000 mls @ 80 mls/hr 07/27/22 18:59 07/27/22 20:59 Normal Saline Iv IV CONT 80 mls/hr .[id number] KYLE Administration Lisinopril 2.5 mg 07/27/22 09:00 07/28/22 09:12 Lisinopril 2.5 Mg Tablet PO 2.5 mg DAILY KYLE Administration Lovastatin 40 mg 07/27/22 09:00 07/28/22 09:04 Lovastatin 20 Mg Tablet PO 40 mg DAILY KYLE Administration Morphine Sulfate 1 mg 07/27/22 18:59 Morphine Sulfate (*Crx) 2 Mg/Ml Inj IV PUSH Q1H PRN Pain Rated 7-10 Naloxone HCl 0.1 mg 07/27
--- NOTE | 2022-07-28 11:35 | PM.IMPN ---
Progress Note: A&P Assessment and Plan (1) Closed subcapital fracture of neck of right femur: Qualifiers: Encounter type: initial encounter Qualified Code(s): S72.011A - Unspecified intracapsular fracture of right femur, initial encounter for closed fracture Code(s): S72.011A - Unspecified intracapsular fracture of right femur, initial encounter for closed fracture Status: Acute Assessment and Plan: -ortho has been consulted. -medicare contact specialist for possible placement (2) Atrial fibrillation: Code(s): I48.91 - Unspecified atrial fibrillation Status: Acute Assessment and Plan: Coumadin is on hold. 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 Subjective Date/time seen: 07/28/22 11:35 Pain controlled Exam Const: General: cooperative, healthy appearing, comfortable, no acute distress, well developed, alert, awake, Physically active, average body habitus, well nourished and thin Nutritional Appearance: average body habitus, well nourished and thin Orientation/consciousness: oriented to person, oriented to place, oriented to time and patient oriented x3 Limitations: no limitations HENMT: Head: normal to inspection, No palpable skull fracture present, normocephalic and atraumatic Ears: hearing grossly normal bilaterally and external ears normal Face/Nose/Sinus: Normal external nose present and Normal nares present Eyes: General: appearance normal, both eyes and all related structures Alignment and Position: alignment normal Periorbital: periorbital findings normal Eyelids: eyelids normal Sclera: sclerae normal Pupils: Equal, round and reactive pupils present EOM: EOMs intact bilaterally Neck: Neck: normal visual inspection, full ROM, no lymphadenopathy, trachea midline and supple Thyroid: thyroid normal Chest: Chest palpation & inspection: normal inspection of the chest Resp: Effort & Inspection: normal respiratory effort Auscultation: clear to auscultation bilaterally Cardio: Palpation: normal PMI Rate: regular rate Rhythm: abnormal rhythm Heart sounds: S1 normal heart sound present and S2 normal heart sound present Peripheral pulses: Peripheral pulses 2+ throughout Other: Atrial fibrillation GI: Inspection: normal to inspection Auscultation: normal bowel sounds Rectal Exam: deferred Back/Spine/Pelvis: Cervical Spine: cervical ROM normal Skin: General skin exam: normal color Lesions: no lesions Rashes: no rashes Trauma: no lacerations or abrasions Hair: normal Nails: normal Other: The patient has abrasions to the left side of the top of his head. He has a dressing to the left forearm. Neuro: General: oriented to person, oriented to place, oriented to time and patient oriented x3 Cranial nerves: Yes Equal, round and reactive pupils present and Yes Normal hearing present Cognition (Neuro): normal cognition Speech: normal speech Sensory Exam: normal sensation Extrem: General: normal to inspection Right upper extremity: normal to inspection and shoulder/upper arm Left upper extremity: normal to inspection and shoulder/upper arm Right lower extremity: lower leg Left lower extremity: normal to inspection Other: Right lower extremity is slightly shorter than the left no external rotation is noted Psych: Appearance: grossly normal Mental Status: mental status grossly normal Speech and movement: Clear speech present Affect: normal affect Att
[2022-07-28] MEDS: WARFARIN (*PBKC) 5 MG TABLET PO (17:33)
[2022-07-28] MEDS: ACETAMINOPHEN 325 MG TABLET 650 MG PO (20:39)
[2022-07-29] VITALS: PULSE 113
[2022-07-29] MEDS: ACETAMINOPHEN 325 MG TABLET 650 MG PO ×2 (02:29→08:18)
[2022-07-29 04:00] VITALS: PULSE 77
[2022-07-29 06:00] VITALS: BP 140/73; PULSE 64; RESP 20; TEMP 36.1; O2SAT 93
[2022-07-29 06:21] LABS: INR 1.7; Prothrombin Time 19.5 Seconds (11.1-14.7)
--- NOTE | 2022-07-29 06:33 | PC.NURSE ---
Pt has been awake throughout the night, with multiple episodes of incontinence and trying to climb out of the bed unassisted. Pt required frequent cueing and redirection throughout the night. Pt required staff to be in his room a majority of the shift, due to him calling out or setting off his bed alarm by trying to get up on his own. Pt was reminded throughout the shift about his recent hip surgery and weight bearing precautions with no change in behavior. Pt currently resting in bed, with alarms on and positioned per his hip protocol.
[2022-07-29 08:00] VITALS: PULSE 99
[2022-07-29] MEDS: TAMSULOSIN HCL 0.4 MG CAPSULE PO (08:18)
[2022-07-29] MEDS: polyethylene glycoL 3350 17 GM POWD.PACK PO (08:18)
[2022-07-29] MEDS: VERAPAMIL HCL 40 MG TABLET PO (08:18)
[2022-07-29] MEDS: LOVASTATIN 20 MG TABLET 40 MG PO (08:18)
[2022-07-29] MEDS: SENNA/DOCUSATE SODIUM TABLET 2 TAB PO (08:18)
[2022-07-29] MEDS: lisinopriL 2.5 MG TABLET PO (08:18)
[2022-07-29 12:00] VITALS: PULSE 110
--- NOTE | 2022-08-17 07:50 | PM.DS ---
DS: Admitting Diagnosis Discharge Date 07/29/22 Admitting Diagnosis hipo fracture DS: Discharge Diagnosis Discharge Diagnosis (1) Closed subcapital fracture of neck of right femur: Qualifiers: Encounter type: initial encounter Qualified Code(s): S72.011A - Unspecified intracapsular fracture of right femur, initial encounter for closed fracture Code(s): S72.011A - Unspecified intracapsular fracture of right femur, initial encounter for closed fracture Status: Acute Assessment and Plan: -ortho has been consulted. -career and guidance counselor for possible placement (2) Atrial fibrillation: Code(s): I48.91 - Unspecified atrial fibrillation Status: Acute Assessment and Plan: Coumadin is on hold. 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 DS: Summary Hospital Course Hospital Course: admitted for hip fracture sp pin fixation did well, no complication patient can be discharged for ongoing rehab fu ortho Time Spent with Patient Time attestation: Total time spent providing and/or coordinating discharge services: Exam Const: General: cooperative, healthy appearing, comfortable, no acute distress, well developed, alert, awake, Physically active, average body habitus, well nourished and thin Nutritional Appearance: average body habitus, well nourished and thin Orientation/consciousness: oriented to person, oriented to place, oriented to time and patient oriented x3 Limitations: no limitations HENMT: Head: normal to inspection, No palpable skull fracture present, normocephalic and atraumatic Ears: hearing grossly normal bilaterally and external ears normal Face/Nose/Sinus: Normal external nose present and Normal nares present Eyes: General: appearance normal, both eyes and all related structures Alignment and Position: alignment normal Periorbital: periorbital findings normal Eyelids: eyelids normal Sclera: sclerae normal Pupils: Equal, round and reactive pupils present EOM: EOMs intact bilaterally Neck: Neck: normal visual inspection, full ROM, no lymphadenopathy, trachea midline and supple Thyroid: thyroid normal Chest: Chest palpation & inspection: normal inspection of the chest Resp: Effort & Inspection: normal respiratory effort Auscultation: clear to auscultation bilaterally Cardio: Palpation: normal PMI Rate: regular rate Rhythm: abnormal rhythm Heart sounds: S1 normal heart sound present and S2 normal heart sound present Peripheral pulses: Peripheral pulses 2+ throughout Other: Atrial fibrillation GI: Inspection: normal to inspection Auscultation: normal bowel sounds Rectal Exam: deferred Back/Spine/Pelvis: Cervical Spine: cervical ROM normal Skin: General skin exam: normal color Lesions: no lesions Rashes: no rashes Trauma: no lacerations or abrasions Hair: normal Nails: normal Other: The patient has abrasions to the left side of the top of his head. He has a dressing to the left forearm. Neuro: General: oriented to person, oriented to place, oriented to time and patient oriented x3 Cranial nerves: Yes Equal, round and reactive pupils present and Yes Normal hearing present Cognition (Neuro): normal cognition Speech: normal speech Sensory Exam: normal sensation Extrem: General: normal to inspection Right upper extremity: normal to inspection and shoulder/upper arm Left upper extremity: normal to inspection and shoulder/upper arm Right
== END 2022-07-29 13:40 | disposition swing bed (61) | DRG 482 ==
LOC: ANHED 18:50 → ANH3MEDSUR 20:10
PROVIDERS: Nurse Practitioner; Orthopaedic Surgery; Physician Assistant Surgical; Admitting Provider Internal Medicine; Emergency Provider Physician Assistant; PCP Internal Medicine; Visit Provider Chiropractor
PROC: 0QH634Z Insertion of Internal Fixation Device into Right Upper Femur, Percutaneous Approach (ICD-10-PCS; principal; 2022-07-27 17:00)
DX: S72.011A Unspecified intracapsular fracture of right femur, initial encounter for closed fracture (principal); S62.611A Displaced fracture of proximal phalanx of left index finger, initial encounter for closed fracture; W19.XXXA Unspecified fall, initial encounter; Z20.822 Contact with and (suspected) exposure to COVID-19; I48.0 Paroxysmal atrial fibrillation; I10 Essential (primary) hypertension; E78.5 Hyperlipidemia, unspecified; K43.9 Ventral hernia without obstruction or gangrene; N40.0 Benign prostatic hyperplasia without lower urinary tract symptoms; R29.6 Repeated falls; Z90.49 Acquired absence of other specified parts of digestive tract; Z95.2 Presence of prosthetic heart valve; Z79.01 Long term (current) use of anticoagulants
CPT/HCPCS: 29125; 36415; 71046; 71100; 72125; 73120; 73130; 73564; 80048; 80053; 82306; 83735; 84439; 84443; 84480; 85025; 85610; 85730; 87636; 93005; 96374; 97110; 97162; 97165; 97530; 97535; 97750; 99199; 99285; A9270; G0378; J0131; J0171; J0690; J1100; J2405; J2704; J3370; J7030; J7120

== ENCOUNTER 2022-07-29 14:44 | Inpatient (IN) | payer MEDICARE, BC, SELFPAY ==
--- NOTE | ~2022-07-29 | XR_ITS ---
EXAMINATION: XR hand LT min 3V DATE: 08/05/2022 07:55 INDICATION: Fracture of left hand second proximal phalanx. TECHNIQUE: 4 views of left hand were obtained. COMPARISON: Left hand radiographs 07/28/2022 FINDINGS: There is hyperextension of third and fourth proximal interphalangeal joints. There is an ob lique fracture of the radial palmar side of the diaphysis of second proximal phalanx extending to the proximal articular surface with a 2 mm fracture gap. There is 1 mm step-off at the articular surface . There is an old healed fracture deformity of distal radius with 34 degrees dorsal tilt of the dista l articular surface. There is a nondisplaced fracture of palmar base of first distal phalanx. There i s mild osteoarthritis of first carpometacarpal joint and some of the interphalangeal joints. IMPRESSION: 1. Unchanged oblique fracture of second proximal phalanx involving the proximal articular surface. 2. Nondisplaced fracture of palmar base of first distal phalanx. Reviewed, dictated and finalized at location A. ESTATE FINANCIAL ANALYST
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
[2022-07-29 14:54] VITALS: BP 114/72; PULSE 97; RESP 18; TEMP 36.2; O2SAT 96; BMI 25.0
[2022-07-29 16:00] VITALS: BP 146/79; PULSE 103; RESP 16; TEMP 36.4; O2SAT 96
[2022-07-29] MEDS: ACETAMINOPHEN 325 MG TABLET 650 MG PO (20:51)
[2022-07-29] MEDS: traZODone HCL 50 MG TABLET PO (20:51)
[2022-07-29] MEDS: DOCUSATE SODIUM 100 MG CAPSULE PO (20:51)
[2022-07-30] VITALS: BP 126/79; PULSE 94; RESP 20; TEMP 36.2; O2SAT 97
[2022-07-30 05:26] LABS: INR 1.9; Prothrombin Time 19.9 Seconds (9.50-12.10)
[2022-07-30 08:00] VITALS: BP 140/80; PULSE 90; RESP 14; TEMP 36.6; O2SAT 96
[2022-07-30] MEDS: LOVASTATIN 20 MG TABLET 40 MG PO (08:59)
[2022-07-30] MEDS: TAMSULOSIN HCL 0.4 MG CAPSULE PO (08:59)
[2022-07-30] MEDS: POTASSIUM CHLORIDE 20 MEQ TABLET 40 MEQ PO (08:59)
[2022-07-30] MEDS: FUROSEMIDE 20 MG TABLET PO (09:00)
[2022-07-30] MEDS: lisinopriL 2.5 MG TABLET PO (09:00)
[2022-07-30] MEDS: VERAPAMIL HCL 40 MG TABLET PO (09:00)
--- NOTE | 2022-07-30 09:52 | PM.IMHP ---
H&P: HPI History of Present Illness Date/Time: 07/30/22 09:52 Chief Complaint: rehab/weakness Narrative: this is a 86-year-old male who presented to [place] ED status post fall. Patient sustained a left finger fracture and a Right subcapital femoral neck fx,.Cannulated screw fixation insight to right subcapital femoral neck fracture completed on 07/27/2022 , by Dr. Childers. Patient admitted in swing bed for rehabilitation due to decreased balance decreased mobility in severe limited function endurant and/or mobility. The patient denies SOB, CP, palpitation, extremity numbness, lightheadedness, dizziness, constipation, diarrhea, chills, or fever. Review of Systems Review of Systems: A 14 organ system Review of Systems was performed and pertinent positives included in the HPI, otherwise remaining ROS is negative. [facility] Past Medical History Medical History Atrial fibrillation BPH (benign prostatic hyperplasia) History of atrial fibrillation History of hyperlipidemia History of hypertension Hyperlipidemia Surgical History Surgical History H/O arthroscopic knee surgery H/O hernia repair Heart valve replaced Hx of cholecystectomy S/P tonsillectomy and adenoidectomy Family History Family History Mother Heart disease Father Alcohol abuse by father Sibling Acute myocardial infarction Other Hypertension Social History Social History Social History: The patient lives with his who has dementia and he has been caring for her. They have had 3 children. He is retired from [employer]. Code status full code Smoking status: Never smoker Second hand tobacco smoke exposure: No Alcohol intake: never Substance use: never Substance use type: does not use Lack of Transportation: No Lack of Food: Never True Current Housing: I Have Housing Concerned About Future Housing: No Difficulty Paying Gas/Electric Bills: No Difficulty Paying for Meds: No Currently Unemployed: No Education: High School Diploma/GED Difficulty w/ Childcare or Family Care: No Living arrangements: with family Spiritual care concerns: No Meds Home Medications and Allergies Home Medications Medication Instructions Recorded Confirmed Type Klor-Con M20 20 meq PO DAILY 08/09/22 02/10/23 History furosemide 20 mg tablet 20 mg PO DAILY 01/25/22 07/29/22 History lisinopril 2.5 mg tablet 2.5 mg PO DAILY 01/25/22 07/29/22 History lovastatin 40 mg tablet 40 mg PO DAILY 01/25/22 07/29/22 History tamsulosin 0.4 mg capsule (Flomax) 0.4 mg PO DAILY 01/25/22 07/29/22 History verapamil 40 mg tablet 40 mg PO DAILY 01/25/22 07/29/22 History warfarin 5 mg tablet 5 mg PO DAILY 01/25/22 07/29/22 History hydrocodone 7.5 mg-acetaminophen 1 tablet PO Q8H PRN pain #20 tabs 07/29/22 07/29/22 Rx 325 mg tablet Allergies Allergy/AdvReac Type Severity Reaction Status Date / Time No Known Allergies Allergy Mild Verified 07/27/22 16:16 Vital Signs Vital Signs - 24 hr 07/29/22 14:54 07/29/22 14:54 07/29/22 16:00 Temperature 97.1 F L 97.6 F Pulse Rate 97 97 103 H Respiratory Rate 18 18 16 Blood Pressure 114/72 146/79 H Pulse Oximetry 96 96 96 Oxygen Delivery Room Air Room Air Room Air 07/30/22 00:00 Temperature 97.2 F L Pulse Rate 94 Respiratory Rate 20 Blood Pressure 126/79 Pulse Oximetry 97 Oxygen Delivery Room Air Exam Narrative: GENERAL: This is a well-nourished, well-developed patient, in no apparent distress. HEAD: normocephalic, atraumatic. EYES: PERRL. Sclera clear/white. Vision is grossly intact. EARS: External ears normal, auditory canals clear and without drainage, TMs normal without perforation. Hearing grossly intact. NOSE: External nose normal with no obvious nasal di
[2022-07-30] MEDS: LORATADINE 10 MG TABLET PO (14:18)
[2022-07-30 16:35] VITALS: BP 114/67; PULSE 84; RESP 18; TEMP 36.5; O2SAT 97
[2022-07-30] MEDS: WARFARIN (*PBKC) 5 MG TABLET PO (18:02)
[2022-07-30] MEDS: DOCUSATE SODIUM 100 MG CAPSULE PO (20:20)
[2022-07-30] MEDS: traZODone HCL 50 MG TABLET PO (20:20)
[2022-07-30] MEDS: traMADol HCL (*CRX) 50 MG TABLET PO (22:17)
[2022-07-31] VITALS: BP 125/74; PULSE 92; RESP 16; TEMP 36.6; O2SAT 97
[2022-07-31] MEDS: ACETAMINOPHEN 325 MG TABLET 650 MG PO ×2 (02:43→11:03)
[2022-07-31 06:04] LABS: INR 1.9; Prothrombin Time 19.9 Seconds (9.50-12.10)
[2022-07-31 08:00] VITALS: BP 143/91; PULSE 91; TEMP 36.4; O2SAT 97
[2022-07-31] MEDS: HYDROcodone/acetaminophen (*CRX) 5-325 MG TABLET 1 TAB PO ×2 (08:05→17:17)
[2022-07-31] MEDS: POTASSIUM CHLORIDE 20 MEQ TABLET 40 MEQ PO (09:01)
[2022-07-31] MEDS: DOCUSATE SODIUM 100 MG CAPSULE PO ×2 (09:04→20:46)
[2022-07-31] MEDS: LOVASTATIN 20 MG TABLET 40 MG PO (09:04)
[2022-07-31] MEDS: FUROSEMIDE 20 MG TABLET PO (09:05)
[2022-07-31] MEDS: TAMSULOSIN HCL 0.4 MG CAPSULE PO (09:05)
[2022-07-31] MEDS: lisinopriL 2.5 MG TABLET PO (09:06)
[2022-07-31] MEDS: VERAPAMIL HCL 40 MG TABLET PO (09:06)
[2022-07-31] MEDS: LORATADINE 5 MG TABLET PO (09:13)
[2022-07-31 12:46] LABS: Hematocrit 38.1 % (37.0-46.0); Mean Corpuscular HGB Conc 31.5 g/dL (32.0-36.0); Mean Corpuscular Volume 107.9 fL (78.0-102.0); Mean Platelet Volume 9.7 fl (8.7-11.0); Platelet Count Result 222 K/mm3 (150-420); Red Blood Count 3.53 M/mm3 (4.70-6.10); Red Cell Distribution Width 13.2 % (11.6-14.4); White Blood Count 6.3 K/mm3 (4.8-10.8)
[2022-07-31 12:53] LABS: Alanine Aminotransferase 15 U/L (16-63); Albumin Level 2.5 g/dL (3.4-5.0); Alkaline Phosphatase 107 U/L (46-116); Anion Gap 6 mmol/L (8-16); Aspartate Amino Transferase 19 U/L (15-37); Bilirubin,Total 0.5 mg/dL (0.00-1.00); Blood Urea Nitrogen 17 mg/dL (7-18); Calcium 8.3 mg/dL (8.5-10.1); Carbon Dioxide 28 mmol/L (21-32); Chloride 101 mmol/L (98-108); Estimated CRCL calculation 51 ml/min; Estimated Glomerular Filt Rate > 60; Glucose 100 mg/dL (70-99); Osmolality Calculated 281 mOsm/kg (285-295); Potassium 3.5 mmol/L (3.5-5.1); Sodium 135 mmol/L (136-145)
[2022-07-31 13:41] LABS: Add Urine Microscopic? NO; Appearance Urine Clear (Clear); Bilirubin Urine Negative (Negative); Blood Urine Negative (Negative); Color Urine Light Yellow (Yellow); Glucose Urine UA Negative (Negative); Ketones Urine Negative (Negative); Leukocyte Esterase Ur Negative (Negative); Nitrate Urine Negative (Negative); Protein Urine Negative (Negative); Urobilinogen Urine 0.2 mg/dL (0.2-1.0)
[2022-07-31 16:25] VITALS: BP 113/85; PULSE 96; RESP 18; TEMP 36.2; O2SAT 100
[2022-07-31] MEDS: WARFARIN (*PBKC) 5 MG TABLET PO (17:16)
[2022-08-01] VITALS: BP 117/75; PULSE 60; RESP 18; TEMP 36.6; O2SAT 95
--- NOTE | 2022-08-01 00:05 | PC.NURSE ---
Patient refusing to be turned & positioned, saying he lays on his back all the time because that's the only way he's comfortable. Will continue to offer Q2HR as scheduled. Call light in reach.
[2022-08-01] MEDS: ACETAMINOPHEN 325 MG TABLET 650 MG PO ×2 (03:08→14:05)
[2022-08-01] MEDS: ARTIFICIAL TEARS OPHTH SOLN 15 ML BOTTLE 1 DROP EACH EYE ×3 (03:10→21:12)
[2022-08-01 06:23] LABS: INR 2.3; Prothrombin Time 23.3 Seconds (9.50-12.10)
[2022-08-01 08:00] VITALS: BP 92/66; PULSE 98; RESP 14; TEMP 36.4; O2SAT 97
[2022-08-01] MEDS: POTASSIUM CHLORIDE 20 MEQ TABLET 40 MEQ PO (09:11)
[2022-08-01] MEDS: HYDROcodone/acetaminophen (*CRX) 5-325 MG TABLET 1 TAB PO ×2 (09:14→21:11)
[2022-08-01] MEDS: lisinopriL 2.5 MG TABLET PO (09:16)
[2022-08-01] MEDS: LOVASTATIN 20 MG TABLET 40 MG PO (09:16)
[2022-08-01] MEDS: TAMSULOSIN HCL 0.4 MG CAPSULE PO (09:16)
[2022-08-01] MEDS: FUROSEMIDE 20 MG TABLET PO (09:16)
[2022-08-01] MEDS: LORATADINE 5 MG TABLET PO (09:17)
[2022-08-01] MEDS: VERAPAMIL HCL 40 MG TABLET PO (09:17)
[2022-08-01 16:00] VITALS: BP 122/73; PULSE 88; RESP 18; TEMP 36; O2SAT 96
[2022-08-01] MEDS: WARFARIN (*PBKC) 5 MG TABLET PO (17:02)
[2022-08-01] MEDS: DOCUSATE SODIUM 100 MG CAPSULE PO (21:11)
[2022-08-01] MEDS: traZODone HCL 50 MG TABLET 100 MG PO (21:11)
[2022-08-02] VITALS: BP 111/67; PULSE 96; RESP 20; TEMP 36.2; O2SAT 99
[2022-08-02 05:29] LABS: INR 2.3
[2022-08-02 08:00] VITALS: BP 114/68; PULSE 102; RESP 18; TEMP 36.6; O2SAT 95
[2022-08-02] MEDS: LOVASTATIN 20 MG TABLET 40 MG PO (09:06)
[2022-08-02] MEDS: TAMSULOSIN HCL 0.4 MG CAPSULE PO (09:07)
[2022-08-02] MEDS: POTASSIUM CHLORIDE 20 MEQ TABLET 40 MEQ PO (09:07)
[2022-08-02] MEDS: FUROSEMIDE 20 MG TABLET PO (09:07)
[2022-08-02] MEDS: DOCUSATE SODIUM 100 MG CAPSULE PO ×2 (09:07→20:48)
[2022-08-02] MEDS: LORATADINE 5 MG TABLET PO (09:08)
[2022-08-02] MEDS: VERAPAMIL HCL 40 MG TABLET PO (09:08)
[2022-08-02] MEDS: lisinopriL 2.5 MG TABLET PO (09:08)
[2022-08-02] MEDS: ARTIFICIAL TEARS OPHTH SOLN 15 ML BOTTLE 1 DROP EACH EYE ×3 (09:30→22:00)
[2022-08-02 16:00] VITALS: BP 130/70; PULSE 90; RESP 16; TEMP 37.1; O2SAT 95
[2022-08-02] MEDS: WARFARIN (*PBKC) 5 MG TABLET PO (16:59)
--- NOTE | 2022-08-02 17:00 | PC.NURSE ---
PT SON VISITING NOW. ASSISTED PATIENT UP TO RECLINER CHAIR FOR SUPPER. PT COMPLETED ACTIVITY WITH VERBAL CUES TO MAINTAIN TTWB TO RLE.
[2022-08-02 20:00] VITALS: PULSE 90; RESP 16; O2SAT 95
[2022-08-02] MEDS: traZODone HCL 50 MG TABLET 100 MG PO (20:47)
[2022-08-02] MEDS: HYDROcodone/acetaminophen (*CRX) 5-325 MG TABLET 1 TAB PO (20:48)
[2022-08-03] VITALS: BP 124/68; PULSE 93; RESP 17; TEMP 36.6; O2SAT 98
[2022-08-03] MEDS: ACETAMINOPHEN 325 MG TABLET 650 MG PO ×2 (03:43→16:24)
[2022-08-03] MEDS: ARTIFICIAL TEARS OPHTH SOLN 15 ML BOTTLE 1 DROP EACH EYE ×3 (03:47→20:53)
[2022-08-03 05:29] LABS: INR 2.2; Prothrombin Time 22.8 Seconds (9.50-12.10)
[2022-08-03 08:00] VITALS: BP 150/62; PULSE 82; TEMP 36.4; O2SAT 98
[2022-08-03] MEDS: LOVASTATIN 20 MG TABLET 40 MG PO (08:54)
[2022-08-03] MEDS: LORATADINE 5 MG TABLET PO (08:54)
[2022-08-03] MEDS: VERAPAMIL HCL 40 MG TABLET PO (08:54)
[2022-08-03] MEDS: POTASSIUM CHLORIDE 20 MEQ TABLET 40 MEQ PO (08:55)
[2022-08-03] MEDS: FUROSEMIDE 20 MG TABLET PO (08:55)
[2022-08-03] MEDS: lisinopriL 2.5 MG TABLET PO (08:55)
[2022-08-03] MEDS: TAMSULOSIN HCL 0.4 MG CAPSULE PO (08:55)
[2022-08-03] MEDS: DOCUSATE SODIUM 100 MG CAPSULE PO ×2 (08:55→20:53)
[2022-08-03 16:00] VITALS: BP 101/57; PULSE 68; RESP 14; TEMP 36.4; O2SAT 98
[2022-08-03] MEDS: WARFARIN (*PBKC) 5 MG TABLET PO (16:24)
[2022-08-03] MEDS: traMADol HCL (*CRX) 50 MG TABLET PO (20:53)
[2022-08-03] MEDS: traZODone HCL 50 MG TABLET 100 MG PO (20:53)
[2022-08-03 23:02] VITALS: BP 133/76; PULSE 96; RESP 15; TEMP 36.3; O2SAT 98
[2022-08-04] MEDS: ACETAMINOPHEN 325 MG TABLET 650 MG PO ×3 (00:29→20:40)
[2022-08-04 05:25] LABS: INR 2.3; Prothrombin Time 23.2 Seconds (9.50-12.10)
[2022-08-04 08:25] VITALS: BP 114/58; PULSE 66; RESP 18; TEMP 36.1; O2SAT 98
[2022-08-04] MEDS: lisinopriL 2.5 MG TABLET PO (09:04)
[2022-08-04] MEDS: LORATADINE 5 MG TABLET PO (09:04)
[2022-08-04] MEDS: POTASSIUM CHLORIDE 20 MEQ TABLET 40 MEQ PO (09:04)
[2022-08-04] MEDS: FUROSEMIDE 20 MG TABLET PO (09:04)
[2022-08-04] MEDS: TAMSULOSIN HCL 0.4 MG CAPSULE PO (09:04)
[2022-08-04] MEDS: LOVASTATIN 20 MG TABLET 40 MG PO (09:04)
[2022-08-04] MEDS: VERAPAMIL HCL 40 MG TABLET PO (09:05)
[2022-08-04] MEDS: ARTIFICIAL TEARS OPHTH SOLN 15 ML BOTTLE 1 DROP EACH EYE ×2 (09:29→21:34)
[2022-08-04 16:30] VITALS: BP 106/67; PULSE 87; RESP 18; TEMP 36.5; O2SAT 99
[2022-08-04] MEDS: WARFARIN (*PBKC) 5 MG TABLET PO (17:47)
[2022-08-04] MEDS: traZODone HCL 50 MG TABLET 100 MG PO (20:39)
[2022-08-04] MEDS: DOCUSATE SODIUM 100 MG CAPSULE PO (20:39)
[2022-08-04 23:02] VITALS: BP 126/62; PULSE 110; RESP 17; TEMP 36.6; O2SAT 96
[2022-08-05 05:34] LABS: INR 2.7; Prothrombin Time 27.2 Seconds (9.50-12.10)
[2022-08-05 07:35] VITALS: BP 129/72; PULSE 85; RESP 18; TEMP 36.4; O2SAT 95
[2022-08-05] MEDS: LORATADINE 5 MG TABLET PO (09:22)
[2022-08-05] MEDS: lisinopriL 2.5 MG TABLET PO (09:22)
[2022-08-05] MEDS: POTASSIUM CHLORIDE 20 MEQ TABLET 40 MEQ PO (09:22)
[2022-08-05] MEDS: TAMSULOSIN HCL 0.4 MG CAPSULE PO (09:22)
[2022-08-05] MEDS: VERAPAMIL HCL 40 MG TABLET PO (09:22)
[2022-08-05] MEDS: LOVASTATIN 20 MG TABLET 40 MG PO (09:22)
[2022-08-05] MEDS: FUROSEMIDE 20 MG TABLET PO (09:23)
[2022-08-05] MEDS: ARTIFICIAL TEARS OPHTH SOLN 15 ML BOTTLE 1 DROP EACH EYE (09:24)
[2022-08-05] MEDS: ACETAMINOPHEN 325 MG TABLET 650 MG PO ×2 (13:42→23:35)
[2022-08-05 16:40] VITALS: BP 116/60; PULSE 68; RESP 18; TEMP 36.4; O2SAT 99
[2022-08-05] MEDS: WARFARIN (*PBKC) 5 MG TABLET PO (18:07)
[2022-08-06] VITALS: BP 134/70; PULSE 75; RESP 18; TEMP 36.3; O2SAT 98
[2022-08-06] MEDS: traZODone HCL 50 MG TABLET 100 MG PO (02:15)
[2022-08-06 05:16] LABS: INR 2.7; Prothrombin Time 27.7 Seconds (9.50-12.10)
--- NOTE | 2022-08-06 05:16 | PC.NURSE ---
Patient has been up most of night, states he only slept one hour after twenty minute nap at beginning of night. Voids 100-200ml per urinal 2-3 times per hour. Calling for multiple requests 3-4 times per hour.
[2022-08-06 07:51] VITALS: BP 126/61; PULSE 83; RESP 16; TEMP 36.4; O2SAT 96
[2022-08-06] MEDS: POTASSIUM CHLORIDE 20 MEQ TABLET 40 MEQ PO (08:47)
[2022-08-06] MEDS: FUROSEMIDE 20 MG TABLET PO (08:47)
[2022-08-06] MEDS: LOVASTATIN 20 MG TABLET 40 MG PO (08:47)
[2022-08-06] MEDS: TAMSULOSIN HCL 0.4 MG CAPSULE PO (08:48)
[2022-08-06] MEDS: lisinopriL 2.5 MG TABLET PO (08:48)
[2022-08-06] MEDS: LORATADINE 5 MG TABLET PO (08:48)
[2022-08-06] MEDS: VERAPAMIL HCL 40 MG TABLET PO (08:49)
[2022-08-06] MEDS: ACETAMINOPHEN 325 MG TABLET 650 MG PO ×2 (08:49→22:13)
[2022-08-06] MEDS: ARTIFICIAL TEARS OPHTH SOLN 15 ML BOTTLE 1 DROP EACH EYE (08:50)
[2022-08-06 16:00] VITALS: BP 116/68; PULSE 78; RESP 16; TEMP 36.4; O2SAT 98
[2022-08-06] MEDS: WARFARIN (*PBKC) 5 MG TABLET PO (16:33)
[2022-08-06 20:00] VITALS: PULSE 78; RESP 16; O2SAT 98
[2022-08-06] MEDS: ZOLPIDEM TARTRATE (*CRX) 5 MG TABLET PO (21:07)
[2022-08-06] MEDS: traMADol HCL (*CRX) 50 MG TABLET PO (22:51)
[2022-08-07] VITALS: BP 125/70; PULSE 76; RESP 16; TEMP 36.2; O2SAT 99
[2022-08-07 07:39] LABS: Prothrombin Time 30.3 Seconds (9.50-12.10)
[2022-08-07] MEDS: ACETAMINOPHEN 325 MG TABLET 650 MG PO ×2 (07:58→19:11)
[2022-08-07] MEDS: POTASSIUM CHLORIDE 20 MEQ TABLET 40 MEQ PO (07:58)
[2022-08-07 08:00] VITALS: BP 120/63; PULSE 76; RESP 20; TEMP 36.6; O2SAT 97
[2022-08-07] MEDS: TAMSULOSIN HCL 0.4 MG CAPSULE PO (09:14)
[2022-08-07] MEDS: LOVASTATIN 20 MG TABLET 40 MG PO (09:14)
[2022-08-07] MEDS: DOCUSATE SODIUM 100 MG CAPSULE PO (09:14)
[2022-08-07] MEDS: lisinopriL 2.5 MG TABLET PO (09:15)
[2022-08-07] MEDS: FUROSEMIDE 20 MG TABLET PO (09:15)
[2022-08-07] MEDS: LORATADINE 5 MG TABLET PO (09:16)
[2022-08-07] MEDS: VERAPAMIL HCL 40 MG TABLET PO (09:16)
[2022-08-07] MEDS: traMADol HCL (*CRX) 50 MG TABLET PO (11:12)
[2022-08-07 16:00] VITALS: BP 103/61; PULSE 65; RESP 18; TEMP 36.2; O2SAT 97
[2022-08-07] MEDS: WARFARIN (*PBKC) 5 MG TABLET PO (16:56)
[2022-08-07 19:50] VITALS: PULSE 65; RESP 18; O2SAT 97
[2022-08-07] MEDS: HYDROcodone/acetaminophen (*CRX) 5-325 MG TABLET 1 TAB PO (21:13)
[2022-08-07] MEDS: ZOLPIDEM TARTRATE (*CRX) 5 MG TABLET PO (21:13)
[2022-08-08] VITALS: BP 98/61; PULSE 120; RESP 16; TEMP 36.1; O2SAT 98
[2022-08-08 05:49] LABS: INR 3.2; Prothrombin Time 31.9 Seconds (9.50-12.10)
[2022-08-08 07:40] VITALS: BP 119/71; PULSE 90; RESP 18; TEMP 36.2; O2SAT 97
[2022-08-08] MEDS: LOVASTATIN 20 MG TABLET 40 MG PO (09:46)
[2022-08-08] MEDS: POTASSIUM CHLORIDE 20 MEQ TABLET 40 MEQ PO (09:46)
[2022-08-08] MEDS: ACETAMINOPHEN 325 MG TABLET 650 MG PO ×2 (09:46→15:01)
[2022-08-08] MEDS: TAMSULOSIN HCL 0.4 MG CAPSULE PO (09:46)
[2022-08-08] MEDS: VERAPAMIL HCL 40 MG TABLET PO (09:46)
[2022-08-08] MEDS: lisinopriL 2.5 MG TABLET PO (09:46)
[2022-08-08] MEDS: FUROSEMIDE 20 MG TABLET PO (09:46)
[2022-08-08] MEDS: LORATADINE 5 MG TABLET PO (09:46)
[2022-08-08] MEDS: ARTIFICIAL TEARS OPHTH SOLN 15 ML BOTTLE 1 DROP EACH EYE ×2 (09:47→19:05)
--- NOTE | 2022-08-08 14:24 | PM.EVENT ---
Event Note Event Note Event Note: INR is 3.2 we will hold coumadin today and reevaluate in the morning.
[2022-08-08] MEDS: CALCIUM CARBONATE (TUMS) 500 MG (200 MG ELEMENTAL) PO ×2 (14:35→20:47)
[2022-08-08 16:35] VITALS: BP 105/53; PULSE 88; RESP 18; TEMP 36.6; O2SAT 98
[2022-08-08] MEDS: HYDROcodone/acetaminophen (*CRX) 5-325 MG TABLET 1 TAB PO (20:07)
[2022-08-08] MEDS: ZOLPIDEM TARTRATE (*CRX) 5 MG TABLET PO (20:07)
[2022-08-08] MEDS: DOCUSATE SODIUM 100 MG CAPSULE PO (20:07)
[2022-08-09] VITALS: BP 108/71; PULSE 68; RESP 18; TEMP 36.8; O2SAT 98
[2022-08-09] MEDS: ACETAMINOPHEN 325 MG TABLET 650 MG PO (00:25)
[2022-08-09] MEDS: traMADol HCL (*CRX) 50 MG TABLET PO ×3 (02:30→19:36)
[2022-08-09] MEDS: HYDROcodone/acetaminophen (*CRX) 5-325 MG TABLET 1 TAB PO ×2 (05:01→16:01)
[2022-08-09 07:55] VITALS: BP 109/74; PULSE 100; RESP 18; TEMP 36.3; O2SAT 97
[2022-08-09] MEDS: VERAPAMIL HCL 40 MG TABLET PO (08:59)
[2022-08-09] MEDS: LOVASTATIN 20 MG TABLET 40 MG PO (08:59)
[2022-08-09] MEDS: FUROSEMIDE 20 MG TABLET PO (08:59)
[2022-08-09] MEDS: TAMSULOSIN HCL 0.4 MG CAPSULE PO (08:59)
[2022-08-09] MEDS: POTASSIUM CHLORIDE 20 MEQ TABLET 40 MEQ PO (08:59)
[2022-08-09] MEDS: LORATADINE 5 MG TABLET PO (09:00)
[2022-08-09] MEDS: ARTIFICIAL TEARS OPHTH SOLN 15 ML BOTTLE 1 DROP EACH EYE ×2 (09:00→20:12)
[2022-08-09] MEDS: lisinopriL 2.5 MG TABLET PO (09:00)
[2022-08-09 10:36] LABS: INR 2.7; Prothrombin Time 27.6 Seconds (9.64-11.0)
--- NOTE | 2022-08-09 13:10 | P.PNCROSS_ITS ---
Event Note Event Note Event Note: Held yesterday Coumadin due to INR was 3.5 today INR is 2.7 will restart 5 mg C oumadin and recheck PT in the morning
[2022-08-09] MEDS: WARFARIN (*PBKC) 5 MG TABLET PO (16:02)
[2022-08-09 16:45] VITALS: BP 116/55; PULSE 64; RESP 18; TEMP 36.4; O2SAT 98
[2022-08-09] MEDS: ZOLPIDEM TARTRATE (*CRX) 5 MG TABLET PO (20:11)
[2022-08-09 23:01] VITALS: BP 118/63; PULSE 88; RESP 16; TEMP 36.4; O2SAT 98
[2022-08-10] MEDS: ACETAMINOPHEN 325 MG TABLET 650 MG PO ×2 (04:00→20:28)
[2022-08-10 05:23] LABS: INR 2.3; Prothrombin Time 23.1 Seconds (9.50-12.10)
[2022-08-10 08:00] VITALS: BP 121/52; PULSE 69; RESP 14; TEMP 36.8; O2SAT 97
[2022-08-10] MEDS: POTASSIUM CHLORIDE 20 MEQ TABLET 40 MEQ PO (08:15)
--- NOTE | 2022-08-10 09:06 | WPDPN ---
Progress Note: A&P Assessment and Plan (1) Weakness: Code(s): R53.1 - Weakness Status: Acute Assessment and Plan: ? Exhibit tolerance during physical activity as evidenced by a normal fluctuation of vital signs during physical activity. ? Patient will be ability to perform required activities of daily living. ? Provide appropriate nutrition for healing and strength. ? Use appropriate to prevent falls. ? Continue physical therapy/occupational therapy. (2) Hyperlipidemia: Code(s): E78.5 - Hyperlipidemia, unspecified Status: Acute Assessment and Plan: continue statins (3) BPH (benign prostatic hyperplasia): Code(s): N40.0 - Benign prostatic hyperplasia without lower urinary tract symptoms Status: Acute Assessment and Plan: continue Flomax (4) Atrial fibrillation: Code(s): I48.91 - Unspecified atrial fibrillation Status: Acute Assessment and Plan: controlled continue warfarin INR therapeutic (5) Frequent falls: Code(s): R29.6 - Repeated falls Status: Acute Assessment and Plan: continue PT OT (6) Closed subcapital fracture of neck of right femur: Qualifiers: Encounter type: initial encounter Qualified Code(s): S72.011A - Unspecified intracapsular fracture of right femur, initial encounter for closed fracture Code(s): S72.011A - Unspecified intracapsular fracture of right femur, initial encounter for closed fracture Status: Acute Assessment and Plan: ?pin fixation of valgus impacted right subcapital femoral neck fracture completed on 07/27/[address] Childers follow-up with Dr. Childers in 3 weeks continue touch weight-bearing status on the right leg. postpone ambulation of any distance into further fracture union occurs bed to chair transfer for now continue supportive care continue dressing change and pain management (7) Finger fracture, left: Qualifiers: Encounter type: initial encounter Finger: index finger Fracture alignment: displaced Fracture type: closed Phalanx: proximal Qualified Code(s): S62.611A - Displaced fracture of proximal phalanx of left index finger, initial encounter for closed fracture Code(s): S62.609A - Fracture of unspecified phalanx of unspecified finger, initial encounter for closed fracture Status: Acute Assessment and Plan: ambulation with a Left forearm support walker to prevent weight bearing on left hand continue kenny tape Follow-up with Dr. Rizvi in 10 days x-ray of the left hand ordered for 1 week to be faxed to Dr. Rizvi continue pain medication (8) Iron deficiency anemia: Code(s): D50.9 - Iron deficiency anemia, unspecified Status: Acute Assessment and Plan: continue supplements patient at baseline no active bleeding noted Subjective Date/time seen: 08/10/22 09:06 Interval history: His right knee is bothering him more will order a topical anti inflammatory. Otherwise patient physical therapy is going well he is tolerating his meals and is having regular bowel movements Review of Systems Review of Systems: All systems reviewed & are unremarkable except as noted in HPI and below Exam Narrative: GENERAL: This is a well-nourished, well-developed patient, in no apparent distress. HEAD: normocephalic, atraumatic. EYES: PERRL. Sclera clear/white. Vision is grossly intact. EARS: External ears normal, auditory canals clear and without drainage, TMs normal without perforation. Hearing grossly intact. NOSE: External nose normal with no obvious nasal discharge, nares without redness, no rhinorrhea. THROAT: Mucous membranes moist, posterior pharynx clear. NECK: Neck supple, non-tender without lymphadenopathy, masses or thyromegaly. CARDIOVASCULAR: Regular rate and rhythm without murmurs, gallops, or rubs. RESPIRATORY: Clear to auscultation. Breath sounds equal bilaterally.
[2022-08-10] MEDS: LOVASTATIN 20 MG TABLET 40 MG PO (09:20)
[2022-08-10] MEDS: LORATADINE 5 MG TABLET PO (09:22)
[2022-08-10] MEDS: lisinopriL 2.5 MG TABLET PO (09:22)
[2022-08-10] MEDS: VERAPAMIL HCL 40 MG TABLET PO (09:22)
[2022-08-10] MEDS: DICLOFENAC SODIUM 1% 100 GM GEL (*BKC) 1 APPLIC TOPICAL ×3 (09:23→20:29)
[2022-08-10] MEDS: DOCUSATE SODIUM 100 MG CAPSULE PO ×2 (09:23→20:28)
[2022-08-10] MEDS: FUROSEMIDE 20 MG TABLET PO (09:23)
[2022-08-10] MEDS: TAMSULOSIN HCL 0.4 MG CAPSULE PO (09:23)
[2022-08-10] MEDS: HYDROcodone/acetaminophen (*CRX) 5-325 MG TABLET 1 TAB PO ×2 (11:36→17:21)
[2022-08-10 15:57] VITALS: BP 125/76; PULSE 102; RESP 20; TEMP 36.4; O2SAT 98
[2022-08-10 16:08] VITALS: BP 116/72; PULSE 82; RESP 18; TEMP 36.6; O2SAT 97
[2022-08-10] MEDS: WARFARIN (*PBKC) 5 MG TABLET PO (16:42)
[2022-08-10] MEDS: ZOLPIDEM TARTRATE (*CRX) 5 MG TABLET PO (20:28)
[2022-08-10 23:50] VITALS: BP 113/80; PULSE 115; RESP 20; TEMP 36.6; O2SAT 97
[2022-08-11] MEDS: ACETAMINOPHEN 325 MG TABLET 650 MG PO (04:21)
--- NOTE | 2022-08-11 06:13 | PC.NURSE ---
Up in chair. Dozing for short periods.
[2022-08-11 08:00] VITALS: BP 109/61; PULSE 91; RESP 16; TEMP 36.4; O2SAT 98
[2022-08-11] MEDS: LORATADINE 5 MG TABLET PO (08:18)
[2022-08-11] MEDS: POTASSIUM CHLORIDE 20 MEQ TABLET 40 MEQ PO (08:19)
[2022-08-11] MEDS: FUROSEMIDE 20 MG TABLET PO (08:19)
[2022-08-11] MEDS: TAMSULOSIN HCL 0.4 MG CAPSULE PO (08:19)
[2022-08-11] MEDS: lisinopriL 2.5 MG TABLET PO (08:20)
[2022-08-11] MEDS: LOVASTATIN 20 MG TABLET 40 MG PO (08:20)
[2022-08-11] MEDS: DOCUSATE SODIUM 100 MG CAPSULE PO (08:20)
[2022-08-11] MEDS: DICLOFENAC SODIUM 1% 100 GM GEL (*BKC) 1 APPLIC TOPICAL ×2 (08:21→13:12)
[2022-08-11] MEDS: ARTIFICIAL TEARS OPHTH SOLN 15 ML BOTTLE 1 DROP EACH EYE (08:22)
[2022-08-11] MEDS: VERAPAMIL HCL 40 MG TABLET PO (08:24)
--- NOTE | 2022-08-11 09:39 | P.DS_ITS ---
DS: Admitting Diagnosis Discharge Date 08/11/2022 Admitting Diagnosis rehab, weakness DS: Discharge Diagnosis Discharge Diagnosis (1) Weakness: Code(s): R53.1 - Weakness Status: Acute Assessment and Plan: patient will discharge to a SNF with PT OT (2) Hyperlipidemia: Code(s): E78.5 - Hyperlipidemia, unspecified Status: Acute Assessment and Plan: * continue home medication follow with PCP * * ?continue statins (3) BPH (benign prostatic hyperplasia): Code(s): N40.0 - Benign prostatic hyperplasia without lower urinary tract symptoms Status: Acute Assessment and Plan: * continue home medication follow with PCP * * ?continue Flomax (4) Atrial fibrillation: Code(s): I48.91 - Unspecified atrial fibrillation Status: Acute Assessment and Plan: * * ?controlled * ?continue warfarin * continue home medication follow with PCP (5) Frequent falls: Code(s): R29.6 - Repeated falls Status: Acute Assessment and Plan: * discharge to SNF (6) Closed subcapital fracture of neck of right femur: Qualifiers: Encounter type: initial encounter Qualified Code(s): S72.011A - Unspecified intracapsular fracture of right femur, initial encounter for closed fracture Code(s): S72.011A - Unspecified intracapsular fracture of right femur, initial encounter for closed fracture Status: Acute Assessment and Plan: * ?pin fixation of valgus impacted right subcapital femoral neck fracture completed on 07/27/[address] Childers * ?follow-up with Dr. Childers in 3 weeks * ?continue touch weight-bearing status on the right leg. postpone ambulation of any distance into further fracture union occurs bed to chair transfer for now * ?continue supportive care * ?continue dressing change and pain management (7) Finger fracture, left: Qualifiers: Encounter type: initial encounter Finger: index finger Fracture alignment: displaced Fracture type: closed Phalanx: proximal Qualified Code(s): S62.611A - Displaced fracture of proximal phalanx of left index finger, initial encounter for closed fracture Code(s): S62.609A - Fracture of unspecified phalanx of unspecified finger, initial encounter for closed fracture Status: Acute Assessment and Plan: * ambulation with a Left forearm support walker to prevent weight bearing on left hand * continue kenny tape * ? Follow-up with Dr. Rizvi in 10 days * ?x-ray of the left hand ordered for 1 week to be faxed to Dr. Rizvi * ?continue pain medication (8) Iron deficiency anemia: Code(s): D50.9 - Iron deficiency anemia, unspecified Status: Acute Assessment and Plan: * ?continue supplements * ?patient at baseline * ?no active bleeding noted DS: Summary Hospital Course Reason for hospitalization: rehab weakness Hospital Course: this is a 86-year-old male who presented to [facility] ED status post fall.? Patient sustained a left finger fracture and a Right subcapital femoral neck fx,.Cannulated screw fixation insight to right subcapital femoral neck fracture ? completed on 07/27/2022 ,? by Dr. Childers. Patient admitted in swing bed for rehabilitation due to decreased balance decreased mobility in severe limited function endurant and/or mobility. the patient will discharge to a SNF today.The patient denies SOB, CP, palpitation, extremity numbness, li ghtheadedness, dizziness, constipation, diarrhea, chills, or fever. Time Spent with Patient Time
--- NOTE | 2022-08-11 09:39 | PM.DS ---
DS: Admitting Diagnosis Discharge Date 08/11/2022 Admitting Diagnosis rehab, weakness DS: Discharge Diagnosis Discharge Diagnosis (1) Weakness: Code(s): R53.1 - Weakness Status: Acute Assessment and Plan: patient will discharge to a SNF with PT OT (2) Hyperlipidemia: Code(s): E78.5 - Hyperlipidemia, unspecified Status: Acute Assessment and Plan: continue home medication follow with PCP ?continue statins (3) BPH (benign prostatic hyperplasia): Code(s): N40.0 - Benign prostatic hyperplasia without lower urinary tract symptoms Status: Acute Assessment and Plan: continue home medication follow with PCP ?continue Flomax (4) Atrial fibrillation: Code(s): I48.91 - Unspecified atrial fibrillation Status: Acute Assessment and Plan: ?controlled ?continue warfarin continue home medication follow with PCP (5) Frequent falls: Code(s): R29.6 - Repeated falls Status: Acute Assessment and Plan: discharge to SNF (6) Closed subcapital fracture of neck of right femur: Qualifiers: Encounter type: initial encounter Qualified Code(s): S72.011A - Unspecified intracapsular fracture of right femur, initial encounter for closed fracture Code(s): S72.011A - Unspecified intracapsular fracture of right femur, initial encounter for closed fracture Status: Acute Assessment and Plan: ?pin fixation of valgus impacted right subcapital femoral neck fracture completed on 07/27/[address] Childers ?follow-up with Dr. Childers in 3 weeks ?continue touch weight-bearing status on the right leg. postpone ambulation of any distance into further fracture union occurs bed to chair transfer for now ?continue supportive care ?continue dressing change and pain management (7) Finger fracture, left: Qualifiers: Encounter type: initial encounter Finger: index finger Fracture alignment: displaced Fracture type: closed Phalanx: proximal Qualified Code(s): S62.611A - Displaced fracture of proximal phalanx of left index finger, initial encounter for closed fracture Code(s): S62.609A - Fracture of unspecified phalanx of unspecified finger, initial encounter for closed fracture Status: Acute Assessment and Plan: ambulation with a Left forearm support walker to prevent weight bearing on left hand continue kenny tape ? Follow-up with Dr. Rizvi in 10 days ?x-ray of the left hand ordered for 1 week to be faxed to Dr. Rizvi ?continue pain medication (8) Iron deficiency anemia: Code(s): D50.9 - Iron deficiency anemia, unspecified Status: Acute Assessment and Plan: ?continue supplements ?patient at baseline ?no active bleeding noted DS: Summary Hospital Course Reason for hospitalization: rehab weakness Hospital Course: this is a 86-year-old male who presented to [facility] ED status post fall.? Patient sustained a left finger fracture and a Right subcapital femoral neck fx,.Cannulated screw fixation insight to right subcapital femoral neck fracture ? completed on 07/27/2022 ,? by Dr. Childers. Patient admitted in swing bed for rehabilitation due to decreased balance decreased mobility in severe limited function endurant and/or mobility. the patient will discharge to a SNF today.The patient denies SOB, CP, palpitation, extremity numbness, lightheadedness, dizziness, constipation, diarrhea, chills, or fever. Time Spent with Patient Time attestation: Total time spent providing and/or coordinating discharge services: Exam Narrative: General: This is a well-nourished, well-developed patient, in no apparent distress. HEAD: normocephalic, atraumatic. EYES: PERRL. Sclera clear/white. Vision is grossly intact. EARS: External ears normal, auditory canals clear and without drainage, TMs normal without perforation. Hearing grossly intact. NOSE: External nose normal
--- NOTE | 2022-08-11 11:11 | PC.NURSE ---
Report called to Ramya ross [facility].
--- NOTE | 2022-08-11 15:26 | PC.NURSE ---
Patient transported to [facility] by [facility] worker. Transferred to with SBA only. Belongings and discharge directions sent with patient.
--- NOTE | 2022-08-15 13:13 | PC.NURSE ---
detention nurse states they received and understood the discharge instructions.
== END 2022-08-11 15:30 | DRG 560 ==
PROVIDERS: Nurse Practitioner; Nurse Practitioner Family; Admitting Provider Internal Medicine; PCP Internal Medicine; Visit Provider Internal Medicine
DX: S72.011D Unspecified intracapsular fracture of right femur, subsequent encounter for closed fracture with routine healing (principal); I48.20 Chronic atrial fibrillation, unspecified; S62.611D Displaced fracture of proximal phalanx of left index finger, subsequent encounter for fracture with routine healing; I10 Essential (primary) hypertension; D50.9 Iron deficiency anemia, unspecified; N40.0 Benign prostatic hyperplasia without lower urinary tract symptoms; E78.5 Hyperlipidemia, unspecified; R29.6 Repeated falls; Z79.01 Long term (current) use of anticoagulants
CPT/HCPCS: 36415; 73130; 80053; 81003; 85027; 85610; 87086; 97110; 97162; 97165; 97530; 97535; A9270

== ENCOUNTER 2022-09-02 11:14 | Observation (INO) | payer MEDICARE, BC, SELFPAY ==
[2022-09-02] VITALS (8 sets, daily range): BP systolic 90–158; BP diastolic 61–94; PULSE 71–114; RESP 18–20; TEMP 35.9–37.1; O2SAT 96–98; BMI 25.4
--- NOTE | ~2022-09-02 | XR_ITS ---
EXAMINATION: XR chest 1V portable DATE: 09/02/2022 12:29 INDICATION: Confusion. Fall. TECHNIQUE: A single frontal view of the chest was obtained. COMPARISON: Chest 2 views 07/26/22, chest CT 06/16/2018 FINDINGS: A skin fold overlies right chest. There is a diffuse interstitial pattern in the lungs. No pleural effusion or pneumothorax. Cardiomegaly is noted. Median sternotomy wires and mediastinal surg ical clips are seen, likely from prior coronary artery bypass grafting. IMPRESSION: 1. Stable diffuse interstitial pattern, consistent with mild pulmonary edema and/or chronic interstit ial lung disease. 2. Cardiomegaly. Reviewed, dictated and finalized at location A. IMPRESSION: 1. Stable diffuse interstitial pattern, consistent with mild pulmonary edema an d/or chronic interstitial lung disease. 2. Cardiomegaly.
--- NOTE | ~2022-09-02 | CT_ITS ---
EXAMINATION: CT brain wo con DATE: 09/02/2022 12:29 INDICATION: Head injury. Confusion. Speech deficit. TECHNIQUE: Computed tomography (CT) of the head was performed without intravenous contrast. The mA wa s adjusted according to patient size. Iterative reconstruction technique was employed. The dose-lengt h product was 605.33 mGy-cm. 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 There are scattered areas of low attenua tion in the cerebral white matter, which is within normal limits for the patient's age. There is no i ntracranial hemorrhage, acute infarction, or abnormal intracranial mass lesion. The ventricles are no rmal in size. There is mucosal thickening in the paranasal sinuses. There is thickening sclerosis of the villanueva of right maxillary sinus, consistent with chronic sinusitis. The mastoid air cells are norm al. The orbits are normal. IMPRESSION: 1. 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 2. Chronic sinusitis. Reviewed, dictated and finalized at location A.
--- NOTE | 2022-09-02 11:36 | ED.GENADULT ---
HPI - General Adult General Chief complaint: Fall Stated complaint: fall with confusion Time Seen by Provider: 09/02/22 11:36 History of Present Illness HPI narrative: Patient is an 86-year-old male with history of atrial fibrillation on warfarin, hypertension, BPH, hyperlipidemia, and frequent falls. Last fell about 3 ago. He has been seen here in the ER several times for falls. He presented today after but he says falling 5 times in bed and then once on the floor in his room [facility] the [facility]. He was noted by the nursing staff in the [facility] at the entrance to his room, on the floor, sitting on his buttocks. He denies loss of consciousness. Complains of right shoulder pain, right knee pain, right elbow pain. No nausea vomiting. No motor or sensory deficits that he is complaining of. No chest pain. No abdominal pain. He feels his legs are more swollen than usual. Related Data Home Medications Medication Instructions Recorded Confirmed Klor-Con M20 20 meq PO DAILY 01/25/22 09/02/22 furosemide 20 mg tablet 20 mg PO DAILY 01/25/22 09/02/22 lisinopril 2.5 mg tablet 2.5 mg PO DAILY 01/25/22 09/02/22 lovastatin 40 mg tablet 40 mg PO DAILY 01/25/22 09/02/22 tamsulosin 0.4 mg capsule (Flomax) 0.4 mg PO DAILY 01/25/22 09/02/22 verapamil 40 mg tablet 40 mg PO DAILY 01/25/22 09/02/22 warfarin 5 mg tablet 5 mg PO DAILY 01/25/22 09/02/22 Allergies Allergy/AdvReac Type Severity Reaction Status Date / Time No Known Allergies Allergy Mild Verified 07/27/22 16:16 Review of Systems Review of Systems: All systems reviewed & are unremarkable except as noted in HPI and below Constitutional: Constitutional: Reports as per HPI, Reports no additional constitutional complaints, Denies chills, Denies excessive sweating, Denies fatigue, Denies fever(s), Denies headache(s) and Reports weakness ( Generalized) Eyes: Eyes: Reports as per HPI, Reports no additional eye complaints, Denies change in vision and Denies photophobia ENT: Reports system reviewed and no additional complaints, except as documented, Reports as per HPI, Denies dysphagia, Denies vertigo, Denies dizziness, Denies headache(s), Denies lip swelling, Denies nasal congestion, Denies sore throat, Denies throat swelling and Denies tongue swelling Cardiovascular: Cardiovascular: Reports as per HPI, Reports no additional cardiovascular complaints, Denies chest pain, Denies syncope, Denies rapid heart rate and Denies dyspnea Comments: pedal edema, worse than usual Respiratory: Respiratory: Reports as per HPI, Reports no additional respiratory complaints, Denies chest congestion, Denies cough, Denies dyspnea and Denies wheezing Gastrointestinal: Gastrointestinal: Reports as per HPI, Reports no additional gastrointestinal complaints, Denies abdominal pain, Denies constipation, Denies dysphagia, Denies diarrhea, Denies nausea and Denies vomiting Genitourinary: Genitourinary: Reports as per HPI, Denies hematuria, Denies oliguria, Denies dysuria, Denies urinary frequency, Denies urinary incontinence and Denies urinary urgency Musculoskeletal: Musculoskeletal: Reports no additional musculoskeletal complaints, Denies back pain, Denies myalgias, Denies arthralgias, Denies joint swelling and Denies numbness Comments: complains of mild right shoulder pain, right knee pain, right elbow pain. Integumentary/Breasts: Skin/Breast: Reports system reviewed and no additional complaints, except as docu, Denies pruritus, Denies erythema, Denies rash and Denies skin ulcer Neurologic: Reports system reviewed and no additional complaints, except as documented, Reports as per HPI, Denies confusion, Denies vertigo, Denies dizziness, Denies syncope, Denies headache(s), Denies focal weakness, Denies numbness and Denies weakness Comments: Frequent falls Psychiatric: Psychiatric: Reports as per HPI, Denies anxiety, Reports confusion ( per [facility] staff), Denies depression, Denies homicidal ideation
--- NOTE | 2022-09-02 11:44 | ECG_ITS ---
Measurements Intervals [place] Rate: 102 P: IA: 0 QRS: 49 QRSD: 124 T: 58 QT: 381 QTc: 497 Interpretive Statements ATRIAL FIBRILLATION WITH RAPID VENTRICULAR RESPONSE INTRAVENTRICULAR CONDUCTION DELAY DELAYED PRECORDIAL R/S TRANSITION BASELINE ARTIFACT- I, II, AVR, AVL ABNORMAL ECG COMPARED TO ECG 07/26/2022 15:35:10 HEART RATE HAS INCREASED Electronically Signed On 09-02-2022 12:42:02 CDT by Marshal Aguilar D.O.
[2022-09-02 12:04] LABS: Basophils Absolute Auto 0.02 K/mm3 (0.00-0.10); Basophils Percent Auto 0.4 % (0.0-1.0); Eosinophils Absolute Auto 0.31 K/mm3 (0.02-0.50); Eosinophils Percent Auto 6.3 % (1.0-6.0); Hematocrit 37.1 % (37.0-46.0); Immature Granulocyte Absolute 0.03 K/mm3 (0.00-0.00); Immature Granulocyte Percent A 0.6 % (0.0-0.0); Lymphocytes Absolute Auto 0.79 K/mm3 (1.10-4.50); Mean Corpuscular Hemoglobin 34.8 pg (27.0-31.0); Mean Corpuscular Volume 99.2 fL (78.0-102.0); Mean Platelet Volume 8.3 fl (8.7-11.0); Monocytes Absolute Auto 0.52 K/mm3 (0.10-0.90); Monocytes Percent Auto 10.5 % (2.0-11.0); Neutrophils Absolute Auto 3.3 K/mm3 (1.7-7.2); Neutrophils Percent Auto 66.2 % (50.0-70.0); Platelet Count Result 165 K/mm3 (150-420); Red Blood Count 3.74 M/mm3 (4.70-6.10); Red Cell Distribution Width 12.4 % (11.6-14.4)
[2022-09-02] MEDS: FUROSEMIDE INJ 100 MG/10 ML VIAL 40 MG IV PUSH (12:14)
[2022-09-02] MEDS: ACETAMINOPHEN 500 MG TABLET 1000 MG PO (12:15)
[2022-09-02 12:19] LABS: INR 1.7; Partial Thromboplastin Time 39.9 SEC (23.90-30.70); Prothrombin Time 17.9 Seconds (9.50-12.10)
[2022-09-02 12:34] LABS: Sodium 120 mmol/L (136-145)
[2022-09-02 12:34] LABS: Magnesium 1.7 mg/dL (1.8-2.4); Troponin I 39.4 ng/L (0.00-60.4)
[2022-09-02 12:35] LABS: Alanine Aminotransferase 26 U/L (16-63); Anion Gap 6 mmol/L (8-16); Aspartate Amino Transferase 37 U/L (15-37); Bilirubin,Total 1.2 mg/dL (0.00-1.00); Blood Urea Nitrogen 10 mg/dL (7-18); Calcium 9.1 mg/dL (8.5-10.1); Carbon Dioxide 29 mmol/L (21-32); Chloride 85 mmol/L (98-108); Estimated CRCL calculation 50 ml/min; Estimated Glomerular Filt Rate > 60; Glucose 95 mg/dL (70-99); Osmolality Calculated 249 mOsm/kg (285-295); Potassium 3.9 mmol/L (3.5-5.1)
[2022-09-02 12:35] LABS: Lactic Acid Reflex 1.3 mmol/L (0.4-2.0)
[2022-09-02 12:36] LABS: Albumin Level 3.3 g/dL (3.4-5.0); Alkaline Phosphatase 130 U/L (46-116); Creatine Kinase 283 U/L (39-308); Total Protein 7.4 g/dL (6.4-8.2)
[2022-09-02 12:39] LABS: Influenza A QL RT-PCR Negative (Negative); Influenza B QL RT-PCR Negative (Negative); SARS-CoV-2 RNA PCR Negative (Negative)
[2022-09-02 12:45] LABS: RSV RNA, RT-PCR Negative (Negative)
[2022-09-02 12:53] LABS: Appearance Urine Clear (Clear); Bilirubin Urine Negative (Negative); Blood Urine Negative (Negative); Color Urine Light Yellow (Yellow); Glucose Urine UA Negative (Negative); Ketones Urine Negative (Negative); Leukocyte Esterase Ur Negative LEU/UL (Negative); Nitrate Urine Negative (Negative); Protein Urine Negative (Negative); Specific Grav Ur 1.015 (1.010-1.020); Urobilinogen Urine 0.2 mg/dL (0.2-1.0)
[2022-09-02 13:01] LABS: Add Urine Microscopic? NO
[2022-09-02 13:06] LABS: Erythrocyte Sedimentation Rate 37 mm/hr (0-30)
[2022-09-02] MEDS: SODIUM CHLORIDE 0.9% IV 1,000 ML 999 ML IV CONT (13:06)
[2022-09-02 13:28] LABS: NT Pro B Type Natriuretic Pept 1656 pg/mL (0-450)
--- NOTE | 2022-09-02 14:25 | PC.NURSE ---
[facility] notified of admission.
--- NOTE | 2022-09-02 14:59 | PC.NURSE ---
pt to floor via wheelchair with suzanne wood. pt alert and oriented. up and to wheelchair with moderate assist
--- NOTE | 2022-09-02 15:00 | ADMGEN ---
This patient, America Weinberg, was admitted to 2nd Floor Room 207-2 as an obs patient related to a fall at the [facility] and low sodium. Patient/family oriented to hospital policies and general routines including ID bracelet, bed and alarms, visiting hours, pain management, procedures, bathroom and other care routines, personal items, smoking policy, room service/diet, and visiting hours. Information on how to activate the Rapid Response Team has been discussed. Patient/Family are encouraged to report perceived risks to care and to ask questions if they do not understand what they are told or what they should do.
[2022-09-02] MEDS: SODIUM CHLORIDE 0.9% IV 1,000 ML 100 ML IV CONT (16:22)
[2022-09-02] MEDS: WARFARIN (*PBKC) 5 MG TABLET PO (16:23)
[2022-09-02] MEDS: ACETAMINOPHEN 325 MG TABLET 650 MG PO (16:23)
[2022-09-02] MEDS: MAGNESIUM SULF 2 GM/WATER 50ML 2 GM/50 ML BAG IVPB (16:23)
--- NOTE | 2022-09-02 18:43 | PC.NURSE ---
Rosanna Block notified that patient c/o left hip and shoulder pain and asked if she felt staff should get CT of those areas. Nurse Practitioner spoke with ER doctor and ER doctor stated that he did not see where a CT was needed.
[2022-09-02] MEDS: HYDROcodone/acetaminophen (*CRX) 5-325 MG TABLET 1 TAB PO (20:03)
[2022-09-02] MEDS: DOCUSATE SODIUM 100 MG CAPSULE PO (20:04)
[2022-09-02] MEDS: ZOLPIDEM TARTRATE (*CRX) 5 MG TABLET PO (20:04)
[2022-09-03] VITALS: BP 120/84; PULSE 80; RESP 18; TEMP 36; O2SAT 95
[2022-09-03] MEDS: SODIUM CHLORIDE 0.9% IV 1,000 ML 100 ML IV CONT (03:57)
[2022-09-03 04:00] VITALS: PULSE 100
[2022-09-03 05:20] LABS: Basophils Absolute Auto 0.02 K/mm3 (0.00-0.10); Basophils Percent Auto 0.4 % (0.0-1.0); Eosinophils Absolute Auto 0.26 K/mm3 (0.02-0.50); Eosinophils Percent Auto 5.7 % (1.0-6.0); Hematocrit 37.2 % (37.0-46.0); Hemoglobin 12.6 g/dL (12.4-15.3); Immature Granulocyte Absolute 0.02 K/mm3 (0.00-0.00); Immature Granulocyte Percent A 0.4 % (0.0-0.0); Lymphocytes Absolute Auto 0.76 K/mm3 (1.10-4.50); Lymphocytes Percent Auto 16.6 % (18.0-42.0); Mean Corpuscular HGB Conc 33.9 g/dL (32.0-36.0); Mean Corpuscular Hemoglobin 33.8 pg (27.0-31.0); Mean Corpuscular Volume 99.7 fL (78.0-102.0); Mean Platelet Volume 8.2 fl (8.7-11.0); Monocytes Absolute Auto 0.53 K/mm3 (0.10-0.90); Monocytes Percent Auto 11.5 % (2.0-11.0); Neutrophils Percent Auto 65.4 % (50.0-70.0); Platelet Count Result 165 K/mm3 (150-420); Red Blood Count 3.73 M/mm3 (4.70-6.10); Red Cell Distribution Width 12.4 % (11.6-14.4); White Blood Count 4.6 K/mm3 (4.8-10.8)
[2022-09-03 05:36] LABS: Anion Gap 5 mmol/L (8-16); Blood Urea Nitrogen 8 mg/dL (7-18); Calcium 8.5 mg/dL (8.5-10.1); Carbon Dioxide 29 mmol/L (21-32); Chloride 93 mmol/L (98-108); Estimated CRCL calculation 57 ml/min; Estimated Glomerular Filt Rate > 60; Glucose 82 mg/dL (70-99); Osmolality Calculated 261 mOsm/kg (285-295); Potassium 3.7 mmol/L (3.5-5.1); Sodium 127 mmol/L (136-145)
[2022-09-03] MEDS: ACETAMINOPHEN 325 MG TABLET 650 MG PO (05:48)
--- NOTE | 2022-09-03 07:31 | PC.NURSE ---
Oncoming nurse, Alyssa informed patient requesting cough syrup.
[2022-09-03 07:59] VITALS: BP 138/86; PULSE 97; RESP 16; TEMP 36.4; O2SAT 97
[2022-09-03 08:00] VITALS: PULSE 96
[2022-09-03] MEDS: VERAPAMIL HCL 40 MG TABLET PO (08:57)
[2022-09-03] MEDS: DOCUSATE SODIUM 100 MG CAPSULE PO (08:57)
[2022-09-03] MEDS: POTASSIUM CHLORIDE 20 MEQ TABLET PO (08:57)
[2022-09-03] MEDS: LOVASTATIN 20 MG TABLET 40 MG PO (08:58)
[2022-09-03] MEDS: TAMSULOSIN HCL 0.4 MG CAPSULE PO (08:58)
[2022-09-03] MEDS: FUROSEMIDE 20 MG TABLET PO (08:58)
[2022-09-03] MEDS: lisinopriL 2.5 MG TABLET PO (09:00)
[2022-09-03 12:00] VITALS: PULSE 69
--- NOTE | 2022-09-03 12:28 | PM.SD2 ---
Same Day Admit/Disch: HPI History of Present Illness Chief complaint: fall hyponatrimia Narrative: America Weinberg is a 86 year old male HPI - General Adult General Chief complaint: Fall Stated complaint: fall with confusion Time Seen by Provider: 09/02/22 11:36 History of Present Illness HPI narrative: ? Patient is an 86-year-old male with history of atrial fibrillation on warfarin, hypertension, BPH, hyperlipidemia, and frequent falls.? Last fell about 3 ago.? He has been seen here in the ER several times for falls.? He presented today after but he says falling 5 times in bed and then once on the floor in his room at the assisted.? He was noted by the nursing staff in the assisted at the entrance to his room, on the floor, sitting on his buttocks.? He denies loss of consciousness.? Complains of right shoulder pain, right knee pain, right elbow pain.? No nausea vomiting.? No motor or sensory deficits that he is complaining of.? No chest pain.? No abdominal pain.? He feels his legs are more swollen than usual. Related Data [facility] Past Medical History Medical History Atrial fibrillation BPH (benign prostatic hyperplasia) History of atrial fibrillation History of hyperlipidemia History of hypertension Hyperlipidemia Surgical History Surgical History H/O arthroscopic knee surgery H/O hernia repair Heart valve replaced Hx of cholecystectomy S/P tonsillectomy and adenoidectomy Family History Family History Mother Heart disease Father Alcohol abuse by father Sibling Acute myocardial infarction Other Hypertension Social History Social History Social History: The patient lives with his who has dementia and he has been caring for her. They have had 3 children. He is retired from [employer]. Code status full code Smoking status: Never smoker Second hand tobacco smoke exposure: No Alcohol intake: never Substance use: never Substance use type: does not use Lack of Transportation: No Lack of Food: Never True Current Housing: I Have Housing Concerned About Future Housing: No Difficulty Paying Gas/Electric Bills: No Difficulty Paying for Meds: No Currently Unemployed: No Education: High School Diploma/GED Difficulty w/ Childcare or Family Care: No Living arrangements: with family Spiritual care concerns: No Same Day Admit/Disch: Med Pre-admit Medications Home Medications Medication Instructions Recorded Confirmed Type Klor-Con M20 20 meq PO DAILY 01/25/22 09/02/22 History furosemide 20 mg tablet 20 mg PO DAILY 01/25/22 09/02/22 History lisinopril 2.5 mg tablet 2.5 mg PO DAILY 01/25/22 09/02/22 History lovastatin 40 mg tablet 40 mg PO DAILY 01/25/22 09/02/22 History tamsulosin 0.4 mg capsule (Flomax) 0.4 mg PO DAILY 01/25/22 09/02/22 History verapamil 40 mg tablet 40 mg PO DAILY 01/25/22 09/02/22 History warfarin 5 mg tablet 5 mg PO DAILY 01/25/22 09/02/22 History acetaminophen 325 mg tablet (Mapap 650 mg PO Q4H PRN Headache 30 days 08/11/22 09/02/22 Rx (acetaminophen)) #30 tabs calcium carbonate 500 mg calcium 200 mg PO Q6H PRN Indigestion 30 08/11/22 09/02/22 Rx (1,250 mg) chewable tablet days #30 tabs docusate sodium 100 mg capsule 100 mg PO Q12HR 30 days #60 caps 08/11/22 09/02/22 Rx peg [id number] 1 1 drp EACH EYE QID PRN Dry Eye(S) 08/11/22 09/02/22 Rx %-0.2 %-0.2 % eye drops 30 days #15 mL (Artificial Tears ([id number])) polyethylene glycol 3350 17 gram 17 g PO QAM PRN Constipation 30 08/11/22 09/02/22 Rx oral powder packet (Miralax) days #30 ea simethicone 80 mg chewable tablet 80 mg PO QID PRN Gas Discomfort 30 08/11/22 09/02/22 Rx days #30 tabs zolpidem 5 mg tablet 5 mg PO HS PRN I
--- NOTE | 2022-09-03 14:19 | PC.NURSE ---
report called to Fatou at [facility]. IV removed intact. Assisted patient in getting dressed and transferring to wheelchair. Daughter and assisted employee accompanied patient back to nursing facility
--- NOTE | 2022-09-05 11:36 | PC.NURSE ---
care home nurse states they received and understood the discharge instructions.
== END 2022-09-03 14:15 ==
LOC: CHSED 14:19 → CHS2ND 14:27
PROVIDERS: Nurse Practitioner Family; Admitting Provider Internal Medicine; Emergency Provider Emergency Medicine; PCP Internal Medicine; Visit Provider Internal Medicine
DX: E87.1 Hypo-osmolality and hyponatremia (principal); E83.42 Hypomagnesemia; I48.20 Chronic atrial fibrillation, unspecified; I95.1 Orthostatic hypotension; R53.1 Weakness; I10 Essential (primary) hypertension; N40.0 Benign prostatic hyperplasia without lower urinary tract symptoms; E78.5 Hyperlipidemia, unspecified; R29.6 Repeated falls; Z79.01 Long term (current) use of anticoagulants; Z20.822 Contact with and (suspected) exposure to COVID-19
CPT/HCPCS: 36415; 70450; 71045; 80048; 80053; 81003; 82550; 83605; 83735; 83880; 84484; 85025; 85380; 85610; 85652; 85730; 87637; 93005; 96361; 96365; 96374; 96375; 99285; A9270; G0378; J1940; J3475; J7030

== ENCOUNTER 2022-09-06 06:33 | Outpatient (NON) | payer MEDICARE, SELFPAY ==
[2022-09-06 07:03] LABS: Hematocrit 34.7 % (37.0-46.0); Hemoglobin 11.9 g/dL (12.4-15.3); Mean Corpuscular HGB Conc 34.3 g/dL (32.0-36.0); Mean Corpuscular Hemoglobin 34.1 pg (27.0-31.0); Mean Corpuscular Volume 99.4 fL (78.0-102.0); Mean Platelet Volume 8.5 fl (8.7-11.0); Platelet Count Result 189 K/mm3 (150-420); Red Blood Count 3.49 M/mm3 (4.70-6.10); Red Cell Distribution Width 12.6 % (11.6-14.4); White Blood Count 4.6 K/mm3 (4.8-10.8)
[2022-09-06 07:15] LABS: Anion Gap 8 mmol/L (8-16); Blood Urea Nitrogen 10 mg/dL (7-18); Carbon Dioxide 27 mmol/L (21-32); Chloride 90 mmol/L (98-108); Estimated Glomerular Filt Rate > 60; Glucose 82 mg/dL (70-99); Osmolality Calculated 258 mOsm/kg (285-295); Potassium 4.2 mmol/L (3.5-5.1); Sodium 125 mmol/L (136-145)
[2022-09-06 12:29] LABS: Free T3 1.29 pg/mL (2.18-3.98); Free T4 Free Thyroxine 0.29 ng/dL (0.76-1.46); Thyroid Stimulating Hormone 93.65 uIU/mL (0.36-3.74)
== END 2022-09-06 06:34 | disposition home or self-care (01) ==
LOC: CHSLAB 06:39
PROVIDERS: Nurse Practitioner Family; Visit Provider Internal Medicine
DX: E87.1 Hypo-osmolality and hyponatremia (principal); D50.9 Iron deficiency anemia, unspecified
CPT/HCPCS: 36415; 80048; 84439; 84443; 84481; 85027

== ENCOUNTER 2022-09-08 10:55 | Inpatient (IN) | payer MEDICARE, BC, SELFPAY ==
[2022-09-08] VITALS (10 sets, daily range): BP systolic 98–113; BP diastolic 64–81; PULSE 53–99; RESP 12–17; TEMP 36.2–36.6; O2SAT 96–100; BMI 27.3
--- NOTE | ~2022-09-08 | CT_ITS ---
CT head without contrast Indication: Slurred speech, confusion COMPARISON: 09/02/2022 Technique: Serial scans were obtained through the brain without the administration of contrast. Dose reduction technique was used on this scan by utilizing automated exposure control and iterative recon struction technique. The dose-length product (DLP) was 681.00 mGy-cm. Findings: There is no evidence of intracranial hemorrhage, mass lesion, or acute infarct. The ventri cles and subarachnoid spaces are dilated, consistent with mild atrophy. There is no evidence of janie a, mass effect or midline shift. The visualized paranasal sinuses and mastoid air cells are clear. Impression: No intracranial hemorrhage, mass, or acute infarct. Mild generalized atrophy. Reviewed, dictated and finalized at location . Impression: No intracranial hemorrhage, mass, or acute infarct. Mild generalized atrophy.
--- NOTE | ~2022-09-08 | XR_ITS ---
EXAMINATION: XR chest 1V portable DATE: 09/08/2022 11:54 INDICATION: Altered mental status and confusion. TECHNIQUE: frontal view of the chest was obtained. COMPARISON: Chest radiograph dated 09/02/[address] dated 06/16/2018 FINDINGS: Improvement in the prior pulmonary vascular congestion and increased interstitial pattern which likel y represented pulmonary edema. There are some residual streaky opacities at the left lower lung zone. No pleural effusion or pneumothorax. Cardiomegaly. Median sternotomy wires and mediastinal surgical clips are seen, likely from prior coronary artery bypass grafting. There has also been prior mitral v alve repair. Postoperative change of prior bilateral distal clavicle resections. IMPRESSION: 1. Mild streaky left basilar opacities which could represent atelectasis, residual mild pulmonary bobby ma or pneumonia. 2. Cardiomegaly. Reviewed, dictated and finalized at location A. IMPRESSION: 1. Mild streaky left basilar opacities which could represent atelectasis, resid ual mild pulmonary edema or pneumonia. 2. Cardiomegaly.
--- NOTE | 2022-09-08 11:03 | ECG_ITS ---
Measurements Intervals [place] Rate: 70 P: [place]: 0 QRS: 6 QRSD: 125 T: 19 QT: 414 QTc: 447 Interpretive Statements ATRIAL FIBRILLATION INTRAVENTRICULAR CONDUCTION DELAY DELAYED PRECORDIAL R/S TRANSITION BASELINE ARTIFACT- I, II, III, AVR, AVL, AVF ABNORMAL ECG COMPARED TO ECG 09/02/2022 12:03:49 HEART RATE HAS DECREASED Electronically Signed On 09-08-2022 11:24:03 CDT by Marshal Aguilar D.O.
[2022-09-08] MEDS: SODIUM CHLORIDE 0.9% IV 1,000 ML 999 ML IV CONT ×2 (11:44→15:59)
[2022-09-08 11:50] LABS: Base Excess ABG -0.5 mmol/L (0-2); Oxygen Content ABG 16.7 %vol (16.0-22.0); Oxygen Saturation ABG 94.8 % (95-97); Oxyhemoglobin 94.3 % (94-100); PCO2 ABG 33.8 mmHg (35-45); PO2 ABG 72.8 mmHg (75-85); Total Hemoglobin 12.6 g/dL (12.0-18.0); pH ABG 7.45 (7.35-7.45)
[2022-09-08 11:51] LABS: Site Drawn LEFT RADIAL
[2022-09-08 11:52] LABS: Device ROOM AIR; Hematocrit 36.1 % (37.0-46.0); Hemoglobin 12.6 g/dL (12.4-15.3); Mean Corpuscular HGB Conc 34.9 g/dL (32.0-36.0); Mean Corpuscular Hemoglobin 34.5 pg (27.0-31.0); Mean Corpuscular Volume 98.9 fL (78.0-102.0); Mean Platelet Volume 8.2 fl (8.7-11.0); Modified Allen's Test Pass; Platelet Count Result 185 K/mm3 (150-420); Red Blood Count 3.65 M/mm3 (4.70-6.10); Red Cell Distribution Width 12.4 % (11.6-14.4); White Blood Count 3.6 K/mm3 (4.8-10.8)
[2022-09-08 12:08] LABS: INR 1.9; Partial Thromboplastin Time 43.9 SEC (23.90-30.70)
[2022-09-08 12:16] LABS: Alanine Aminotransferase 28 U/L (16-63); Albumin Level 3.4 g/dL (3.4-5.0); Alkaline Phosphatase 131 U/L (46-116); Ammonia 10 umol/L (11-32); Anion Gap 7 mmol/L (8-16); Aspartate Amino Transferase 47 U/L (15-37); Bilirubin,Total 1.4 mg/dL (0.00-1.00); Blood Urea Nitrogen 10 mg/dL (7-18); Carbon Dioxide 27 mmol/L (21-32); Chloride 87 mmol/L (98-108); Creatine Kinase 380 U/L (39-308); Estimated Glomerular Filt Rate > 60; Glucose 88 mg/dL (70-99); Osmolality Calculated 250 mOsm/kg (285-295); Potassium 3.9 mmol/L (3.5-5.1); Sodium 121 mmol/L (136-145); Thyroid Stimulating Hormone 93.17 uIU/mL (0.36-3.74); Total Protein 7.4 g/dL (6.4-8.2); Troponin I 35.8 ng/L (0.00-60.4)
[2022-09-08 12:19] LABS: Band Neutrophils Percent 3 % (0-6); Eosinophils Percent Manual 3 % (1-6); Lymphocytes Absolute Manual 0.86 K/mm3 (1.1-4.5); Lymphocytes Percent Manual 24 % (18-44); Monocytes Absolute Manual 0.21 K/mm3 (0.1-0.90); Monocytes Percent Manual 6 % (3-9); Neutrophils Absolute Manual 2.41 K/mm3 (1.3-6.7); Neutrophils Percent Manual 64 % (46-73); Platelet Estimate Adequate (Adequate); Total Cells Counted 100
--- NOTE | 2022-09-08 13:25 | ED.GENADULT ---
HPI - General Adult General Chief complaint: Recheck/Abnormal Lab/Rx Stated complaint: abnormal labs Time Seen by Provider: 09/08/22 10:55 Source: patient Mode of arrival: wheelchair Limitations: altered mental status History of Present Illness HPI narrative: This is an 86-year-old prison patient recently discharged from the hospital with a hypothyroidism and hyponatremia the patient had blood work performed by his primary care which showed a a sodium level of 122 he had altered mental status some lethargy, with no chest pain no shortness of breath fever chills no nausea vomiting no abdominal pain no diarrhea constipation. Patient has a history of atrial fibrillation hypertension hyperlipidemia. Patient currently on Coumadin, patient had a elevated TSH level prior to discharge from the hospital. Otherwise no headache no blurry vision no slurred speech. The patient is a DNR with no intubation and no CPR. Onset (ago): day(s) Severity: moderate Related Data Home Medications Medication Instructions Recorded Confirmed lisinopril 2.5 mg tablet 2.5 mg PO DAILY 01/25/22 09/08/22 lovastatin 40 mg tablet 40 mg PO DAILY 01/25/22 09/08/22 tamsulosin 0.4 mg capsule (Flomax) 0.4 mg PO DAILY 01/25/22 09/08/22 verapamil 40 mg tablet 40 mg PO DAILY 01/25/22 09/08/22 warfarin 5 mg tablet 5 mg PO DAILY 01/25/22 09/08/22 diclofenac sodium 1 % topical gel See Rx Instructions .Route 09/08/22 09/08/22 .COMPLEX PRN Pain levothyroxine 100 mcg tablet 100 mcg PO DAILY 09/08/22 09/08/22 potassium chloride 20 mEq 20 meq PO DAILY 09/08/22 09/08/22 tablet,extended release(part/cryst) (Klor-Con M) sodium chloride 1 gram tablet 1,000 mg PO DAILY 09/08/22 09/08/22 Allergies Allergy/AdvReac Type Severity Reaction Status Date / Time No Known Allergies Allergy Mild Verified 09/08/22 11:02 Review of Systems Review of Systems: All systems reviewed & are unremarkable except as noted in HPI and below PMFSH Past Medical History Medical History Atrial fibrillation BPH (benign prostatic hyperplasia) History of atrial fibrillation History of hyperlipidemia History of hypertension Hyperlipidemia Surgical History Surgical History H/O arthroscopic knee surgery H/O hernia repair Heart valve replaced Hx of cholecystectomy S/P tonsillectomy and adenoidectomy Family History Family History Mother Heart disease Father Alcohol abuse by father Sibling Acute myocardial infarction Other Hypertension Social History Social History Social History: The patient lives with his who has dementia and he has been caring for her. They have had 3 children. He is retired from [employer] Code status full code Smoking status: Never smoker Second hand tobacco smoke exposure: No Alcohol intake: never Substance use: never Substance use type: does not use Lack of Transportation: No Lack of Food: Never True Current Housing: I Have Housing Concerned About Future Housing: No Difficulty Paying Gas/Electric Bills: No Difficulty Paying for Meds: No Currently Unemployed: No Education: High School Diploma/GED Difficulty w/ Childcare or Family Care: No Living arrangements: with family Spiritual care concerns: No Exam Const: General: ill appearing Limitations: altered mental status and physical limitations HENMT: Head: normal to inspection Face/Nose/Sinus: Normal external nose present Face and sinus: normal facial exam Eyes: Conjunctivae: conjunctivae normal Pupils: Equal, round and reactive pupils present EOM: EOMs intact bilaterally Direct Ophthalmoscopy: no photophobia Neck: Neck: normal visual inspection Chest: Chest palpation & inspection: normal inspection of the chest R
[2022-09-08] MEDS: LEVOTHYROXINE SODIUM INJ 100 MCG/5 ML VIAL 50 MCG IV PUSH (13:44)
--- NOTE | 2022-09-08 14:21 | PC.NURSE ---
Fatou at [facility] called to check on patient, she verified patient takes pills whole with water,
[2022-09-08 14:56] LABS: Appearance Urine Clear (Clear); Bilirubin Urine Negative (Negative); Blood Urine Negative (Negative); Color Urine Yellow (Yellow); Glucose Urine UA Negative (Negative); Ketones Urine Negative (Negative); Leukocyte Esterase Ur Negative LEU/UL (Negative); Nitrate Urine Negative (Negative); Protein Urine Negative (Negative); Specific Grav Ur <= 1.005 (1.010-1.020); Urobilinogen Urine 0.2 mg/dL (0.2-1.0)
[2022-09-08 15:03] LABS: Amphetamine Screen Urine Negative (Negative); Barbiturate Screen Urine Negative (Negative); Benzodiazepines Screen Urine Negative (Negative); Cannabinoid Screen Urine Negative (Negative); Cocaine Screen Urine Negative (Negative); Methadone Screen Urine Negative (Negative); Opiate Screen Urine Negative (Negative); Phencyclidine Screen Urine Negative (Negative)
--- NOTE | 2022-09-08 15:37 | PC.NURSE ---
Patient arrived on unit at 1500, via stretcher from our ED. Patient orientated to use of bed controls, call light, isolation policies, initiation of rapid response system and room number. Patient voiced understanding.
--- NOTE | 2022-09-08 15:50 | PC.NURSE ---
Per Marianela at [facility], patient has had his Coumadin this morning at 0800.
[2022-09-08] MEDS: ACETAMINOPHEN 325 MG TABLET 650 MG PO (16:04)
[2022-09-08] MEDS: SODIUM CHLORIDE 1 GM TABLET PO (16:05)
[2022-09-08 17:35] LABS: Add Urine Microscopic? NO
--- NOTE | 2022-09-08 18:44 | PC.NURSE ---
As technical proposal writer was assisting patient to bed, patient had a loose, non productive cough. Patient resting in bed at this time with call light within reach.
[2022-09-08] MEDS: traZODone HCL 50 MG TABLET PO (20:27)
[2022-09-08] MEDS: DOCUSATE SODIUM 100 MG CAPSULE PO (20:27)
[2022-09-08] MEDS: HYDROcodone/acetaminophen (*CRX) 5-325 MG TABLET 1 TAB PO (20:28)
[2022-09-09] VITALS: BP 104/68; PULSE 96; RESP 18; TEMP 36.7; O2SAT 99
--- NOTE | 2022-09-09 02:02 | PC.NURSE ---
Bed alarm sounding, pt noted getting out of bed, refused to sit down, ambulating without walker very unsteady, journalists and other writers able to get pt to use walker, pt insisted on ambulating to bathroom to sit on toilet to urinate (urinal within reach at bedside), some incontinence of urine noted to boxers and gown, pt able to urinate in toilet, pt assisted back to bed, ice and soda given, denies further needs.
--- NOTE | 2022-09-09 02:40 | PC.NURSE ---
Bed alarm sounding, pt noted attempting to get up unassisted, states he needs to urinate, refuses to use urinal, internal communications writer assisted pt to bedside commode now by bed, pt unable to urinate, education given on using call light, and using urinal for safety, pt states understanding.
[2022-09-09] MEDS: HYDROcodone/acetaminophen (*CRX) 5-325 MG TABLET 1 TAB PO ×2 (03:34→19:42)
[2022-09-09 05:23] LABS: Hemoglobin 10.9 g/dL (12.4-15.3); Mean Corpuscular HGB Conc 34.1 g/dL (32.0-36.0); Mean Corpuscular Hemoglobin 33.7 pg (27.0-31.0); Mean Corpuscular Volume 99.1 fL (78.0-102.0); Mean Platelet Volume 8.2 fl (8.7-11.0); Platelet Count Result 148 K/mm3 (150-420); Red Blood Count 3.23 M/mm3 (4.70-6.10); Red Cell Distribution Width 12.5 % (11.6-14.4); White Blood Count 3.5 K/mm3 (4.8-10.8)
[2022-09-09 05:34] LABS: Alanine Aminotransferase 24 U/L (16-63); Albumin Level 2.6 g/dL (3.4-5.0); Alkaline Phosphatase 109 U/L (46-116); Anion Gap 8 mmol/L (8-16); Aspartate Amino Transferase 40 U/L (15-37); Bilirubin,Total 0.9 mg/dL (0.00-1.00); Blood Urea Nitrogen 7 mg/dL (7-18); Calcium 8.3 mg/dL (8.5-10.1); Carbon Dioxide 26 mmol/L (21-32); Chloride 93 mmol/L (98-108); Estimated CRCL calculation 57 ml/min; Estimated Glomerular Filt Rate > 60; Glucose 82 mg/dL (70-99); Magnesium 1.7 mg/dL (1.8-2.4); Osmolality Calculated 261 mOsm/kg (285-295); Potassium 3.7 mmol/L (3.5-5.1); Sodium 127 mmol/L (136-145); Total Protein 5.8 g/dL (6.4-8.2)
[2022-09-09 08:00] VITALS: BP 94/45; PULSE 100; RESP 16; TEMP 37.1; O2SAT 97
[2022-09-09] MEDS: DOCUSATE SODIUM 100 MG CAPSULE PO ×2 (08:08→20:11)
[2022-09-09] MEDS: LEVOTHYROXINE SODIUM 100 MCG TABLET PO (08:08)
[2022-09-09] MEDS: LOVASTATIN 20 MG TABLET 40 MG PO (08:08)
[2022-09-09] MEDS: lisinopriL 2.5 MG TABLET PO (08:09)
[2022-09-09] MEDS: TAMSULOSIN HCL 0.4 MG CAPSULE PO (08:10)
[2022-09-09] MEDS: POTASSIUM CHLORIDE 20 MEQ TABLET PO (08:10)
[2022-09-09] MEDS: SODIUM CHLORIDE 1 GM TABLET PO ×2 (08:10→17:00)
[2022-09-09] MEDS: VERAPAMIL HCL 40 MG TABLET PO (08:11)
[2022-09-09] MEDS: MAGNESIUM OXIDE 400 MG TABLET PO (08:51)
--- NOTE | 2022-09-09 09:07 | PC.NURSE ---
METEOROLOGY INSTRUCTOR notified of sepsis flag per protocol. METEOROLOGY INSTRUCTOR states that elevated WBCs is chronic for patient and blood cultures would be ordered to further assess.
--- NOTE | 2022-09-09 10:06 | PC.NURSE ---
Patient changed from observation status to inpatient status at 1006.
--- NOTE | 2022-09-09 10:45 | PM.IMHP ---
H&P: HPI History of Present Illness Date/Time: 09/09/22 10:45 Chief Complaint: hyponatremia, altered mental status, Narrative: this is a 86-year-old male that presented to our emergency department and [facility] a prison . He was sent here by his primary care physician due to hyponatremia. Patient has a past medical history of AFib, BPH, hyperlipidemia, hypertension and hyponatremia. Patient was recently discharged from our facility due to hyponatremia fall and confusion. Upon discharge patient's sodium level improved on discharge sodium was 127 he was also discharged on supplements. On admission patient WBC 3.6, hemoglobin 12.6, hematocrit 36.1, platelets 185, sodium 121, potassium 3.9, BUN 10, creatinine 0.89, glucose 88, troponin 35.8, lactic acid 1.0, BNP 1121 . Patient received 1L bolus of fluid unable to current infused continuously due to patient's elevated BNP and possible pulmonary edema. was informed by nursing staff the patient does not drink water at all he does consume several sodas daily. Patient remains pleasantly confused he is only alert to self. Patient does not appear to be in any distress. The patient denies SOB, CP, palpitation, extremity numbness, lightheadedness, dizziness, constipation, diarrhea, chills, or fever. Review of Systems Review of Systems: All systems reviewed & are unremarkable except as noted in HPI and below PMFSH Past Medical History Medical History Atrial fibrillation BPH (benign prostatic hyperplasia) History of atrial fibrillation History of hyperlipidemia History of hypertension Hyperlipidemia Surgical History Surgical History H/O arthroscopic knee surgery H/O hernia repair Heart valve replaced Hx of cholecystectomy S/P tonsillectomy and adenoidectomy Family History Family History Mother Heart disease Father Alcohol abuse by father Sibling Acute myocardial infarction Other Hypertension Social History Social History Social History: The patient lives with his who has dementia and he has been caring for her. They have had 3 children. He is retired from [employer]. Code status full code Smoking status: Never smoker Second hand tobacco smoke exposure: No Alcohol intake: never Substance use: never Substance use type: does not use Lack of Transportation: No Lack of Food: Never True Current Housing: I Have Housing Concerned About Future Housing: No Difficulty Paying Gas/Electric Bills: No Difficulty Paying for Meds: No Currently Unemployed: No Education: Grade School Difficulty w/ Childcare or Family Care: No Living arrangements: with family Spiritual care concerns: No Meds Home Medications and Allergies Home Medications Medication Instructions Recorded Confirmed Type lisinopril 2.5 mg tablet 2.5 mg PO DAILY 01/25/22 09/08/22 History lovastatin 40 mg tablet 40 mg PO DAILY 01/25/22 09/08/22 History tamsulosin 0.4 mg capsule (Flomax) 0.4 mg PO DAILY 01/25/22 09/08/22 History verapamil 40 mg tablet 40 mg PO DAILY 01/25/22 09/08/22 History warfarin 5 mg tablet 5 mg PO DAILY 01/25/22 09/08/22 History acetaminophen 325 mg tablet (Mapap 650 mg PO Q4H PRN Headache 30 days 08/11/22 09/08/22 Rx (acetaminophen)) #30 tabs calcium carbonate 500 mg calcium 200 mg PO Q6H PRN Indigestion 30 08/11/22 09/08/22 Rx (1,250 mg) chewable tablet days #30 tabs docusate sodium 100 mg capsule 100 mg PO Q12HR 30 days #60 caps 08/11/22 09/08/22 Rx peg [id number] 1 1 drp EACH EYE QID PRN Dry Eye(S) 08/11/22 09/08/22 Rx %-0.2 %-0.2 % eye drops 30 days #15 mL (Artificial Tears ([id number])) polyethylene glycol 3350 17 gram 17 g PO QAM PRN Constipation 30 08/11/22 09/08/22 Rx
--- NOTE | 2022-09-09 13:39 | PC.NURSE ---
Patient's daughter here and concerned about the condition of patient, discussing increased confusion and lethargy. Center Human Resources Manager assured daughter that LAY OUT HELPER is awaiting blood cultures and treating patient with ABT and electrolyte replacements. Patient resting comfortably in bed at this time with bed alarm on for safety and call light in reach.
[2022-09-09 15:41] LABS: INR 1.9; Prothrombin Time 19.6 Seconds (9.50-12.10)
[2022-09-09 16:00] VITALS: BP 105/51; PULSE 95; RESP 16; TEMP 36.3; O2SAT 96
[2022-09-09] MEDS: WARFARIN (*PBKC) 5 MG TABLET PO (16:59)
[2022-09-09] MEDS: traZODone HCL 50 MG TABLET PO (20:11)
[2022-09-09 23:02] VITALS: BP 125/81; PULSE 91; RESP 17; TEMP 36.4; O2SAT 95
[2022-09-10] MEDS: traMADol HCL (*CRX) 50 MG TABLET PO (03:20)
[2022-09-10 08:00] VITALS: BP 128/81; PULSE 90; RESP 14; TEMP 36.6; O2SAT 97
[2022-09-10] MEDS: SODIUM CHLORIDE 1 GM TABLET PO (09:14)
[2022-09-10] MEDS: DOCUSATE SODIUM 100 MG CAPSULE PO (09:14)
[2022-09-10] MEDS: TAMSULOSIN HCL 0.4 MG CAPSULE PO (09:15)
[2022-09-10] MEDS: POTASSIUM CHLORIDE 20 MEQ TABLET PO (09:15)
[2022-09-10] MEDS: MAGNESIUM OXIDE 400 MG TABLET PO (09:15)
[2022-09-10] MEDS: LOVASTATIN 20 MG TABLET 40 MG PO (09:15)
[2022-09-10] MEDS: lisinopriL 2.5 MG TABLET PO (09:17)
[2022-09-10] MEDS: LEVOTHYROXINE SODIUM 100 MCG TABLET PO (09:17)
[2022-09-10] MEDS: VERAPAMIL HCL 40 MG TABLET PO (09:18)
--- NOTE | 2022-09-10 09:34 | P.DS_ITS ---
DS: Admitting Diagnosis Discharge Date 09/10/2022 Admitting Diagnosis pneumonia and hyponatremia DS: Discharge Diagnosis Discharge Diagnosis (1) Hypothyroidism: Qualifiers: Hypothyroidism type: unspecified Qualified Code(s): E03.9 - Hypothyroidism, unspecified Code(s): E03.9 - Hypothyroidism, unspecified Status: Acute Assessment and Plan: * patient received levothyroxine 50 mcg 1 time in ED continue 100 mcg daily * repeat TSH in 6 weeks (2) Acute hyponatremia: Code(s): E87.1 - Hypo-osmolality and hyponatremia Status: Acute Assessment and Plan: * etiology unknown * baseline appears to be between 127-139 * patient received 1 L bolus * increase sodium chloride to 2000 mg daily * encourage fluid intake (3) Pneumonia: Qualifiers: Laterality: left Lung location: unspecified part of lung Pneumonia type: due to unspecified organism Qualified Code(s): J18.9 - Pneumonia, unspecified organism Code(s): J18.9 - Pneumonia, unspecified organism Status: Acute Assessment and Plan: * chest x-ray indicate possible pneumonia * with discharge with cefdinir * blood culture pending * lactic acid within normal limits (4) Frequent falls: Code(s): R29.6 - Repeated falls Status: Acute Assessment and Plan: * PT OT to eval and treat (5) Hypomagnesemia: Code(s): E83.42 - Hypomagnesemia Status: Acute Assessment and Plan: * replace with supplements (6) Weakness: Code(s): R53.1 - Weakness Status: Acute Assessment and Plan: * PT to eval and treat (7) Atrial fibrillation: Code(s): I48.91 - Unspecified atrial fibrillation Status: Acute Assessment and Plan: * stable * continue home medications (8) Iron deficiency anemia: Code(s): D50.9 - Iron deficiency anemia, unspecified Status: Acute Assessment and Plan: * stable * no active bleeding noted (9) Elevated brain natriuretic peptide (BNP) level: Code(s): R79.89 - Other specified abnormal findings of blood chemistry Status: Acute Assessment and Plan: * elevated BNP chest x-ray indicate possible mild pulmonary edema * patient will possibly need a echo on discharge (10) Supratherapeutic INR: Code(s): R79.1 - Abnormal coagulation profile Status: Acute Assessment and Plan: * INR 1.9 * additional dose of warfarin given * PT INR in 3 days DS: Summary Hospital Course Reason for hospitalization: hypernatremia altered mental status and pneumonia Hospital Course: ?this is a 86-year-old male that presented to our emergency department? and resides in a senior care . He? was sent here by his primary care physician due to hyponatremia.? Patient has a past medical history of AFib, BPH, hyperlipidemia, hypertension and hyponatremia.? Patient was recently discharged from our facility due to hyponatremia fall and confusion.? Upon discharge todd liriano's sodium level improved on discharge sodium was 127 he was also discharged on supplements. The patient denies SOB, CP, palpitation, extremity numbness, lightheadedness, dizziness, constipation, diarrhea, chills, or fever. Time Spent with Patient Time attestation: Total time spent providing and/or coordinating discharge services: Exam Narrative: GENERAL: This is a well-nourished, well-developed patient, in no apparent distress. HEAD: normocephalic, atraumatic. EYES: PERRL. Sclera c
--- NOTE | 2022-09-10 09:34 | PM.DS ---
DS: Admitting Diagnosis Discharge Date 09/10/2022 Admitting Diagnosis pneumonia and hyponatremia DS: Discharge Diagnosis Discharge Diagnosis (1) Hypothyroidism: Qualifiers: Hypothyroidism type: unspecified Qualified Code(s): E03.9 - Hypothyroidism, unspecified Code(s): E03.9 - Hypothyroidism, unspecified Status: Acute Assessment and Plan: patient received levothyroxine 50 mcg 1 time in ED continue 100 mcg daily repeat TSH in 6 weeks (2) Acute hyponatremia: Code(s): E87.1 - Hypo-osmolality and hyponatremia Status: Acute Assessment and Plan: etiology unknown baseline appears to be between 127-139 patient received 1 L bolus increase sodium chloride to 2000 mg daily encourage fluid intake (3) Pneumonia: Qualifiers: Laterality: left Lung location: unspecified part of lung Pneumonia type: due to unspecified organism Qualified Code(s): J18.9 - Pneumonia, unspecified organism Code(s): J18.9 - Pneumonia, unspecified organism Status: Acute Assessment and Plan: chest x-ray indicate possible pneumonia with discharge with cefdinir blood culture pending lactic acid within normal limits (4) Frequent falls: Code(s): R29.6 - Repeated falls Status: Acute Assessment and Plan: PT OT to eval and treat (5) Hypomagnesemia: Code(s): E83.42 - Hypomagnesemia Status: Acute Assessment and Plan: replace with supplements (6) Weakness: Code(s): R53.1 - Weakness Status: Acute Assessment and Plan: PT to eval and treat (7) Atrial fibrillation: Code(s): I48.91 - Unspecified atrial fibrillation Status: Acute Assessment and Plan: stable continue home medications (8) Iron deficiency anemia: Code(s): D50.9 - Iron deficiency anemia, unspecified Status: Acute Assessment and Plan: stable no active bleeding noted (9) Elevated brain natriuretic peptide (BNP) level: Code(s): R79.89 - Other specified abnormal findings of blood chemistry Status: Acute Assessment and Plan: elevated BNP chest x-ray indicate possible mild pulmonary edema patient will possibly need a echo on discharge (10) Supratherapeutic INR: Code(s): R79.1 - Abnormal coagulation profile Status: Acute Assessment and Plan: INR 1.9 additional dose of warfarin given PT INR in 3 days DS: Summary Hospital Course Reason for hospitalization: hypernatremia altered mental status and pneumonia Hospital Course: ?this is a 86-year-old male that presented to our emergency department? and resides in a correction . He? was sent here by his primary care physician due to hyponatremia.? Patient has a past medical history of AFib, BPH, hyperlipidemia, hypertension and hyponatremia.? Patient was recently discharged from our facility due to hyponatremia fall and confusion.? Upon discharge patient's sodium level improved on discharge sodium was 127 he was also discharged on supplements. The patient denies SOB, CP, palpitation, extremity numbness, lightheadedness, dizziness, constipation, diarrhea, chills, or fever. Time Spent with Patient Time attestation: Total time spent providing and/or coordinating discharge services: Exam Narrative: GENERAL: This is a well-nourished, well-developed patient, in no apparent distress. HEAD: normocephalic, atraumatic. EYES: PERRL. Sclera clear/white. Vision is grossly intact. EARS: External ears normal, auditory canals clear and without drainage, TMs normal without perforation. Hearing grossly intact. NOSE: External nose normal with no obvious nasal discharge, nares without redness, no rhinorrhea. THROAT: Mucous membranes moist, posterior pharynx clear. NECK: Neck supple, non-tender without lymphadenopathy, masses or thyromegaly. CARDIOVASCULAR: Regular rate and rhythm without murmurs, gallops, or
[2022-09-10] MEDS: WARFARIN (*PBKC) 2 MG TABLET PO (10:26)
--- NOTE | 2022-09-10 11:51 | PC.NURSE ---
Pt discharged back to [facility]. VSS report called to Fatou . Pt instructed regarding new medication Potassium po. Purpose, SE, time and dose reviewed. Discharge plans sent to [place] with pt.
--- NOTE | 2022-09-12 10:41 | PC.NURSE ---
skilled nursing nurse states she received and understood the discharge instructions.
== END 2022-09-10 10:55 | DRG 640 ==
LOC: CHSED 13:34 → CHS2ND 14:36
PROVIDERS: Nurse Practitioner; Admitting Provider Internal Medicine; Emergency Provider Emergency Medicine; PCP Internal Medicine; Visit Provider Internal Medicine
DX: E87.1 Hypo-osmolality and hyponatremia (principal); J18.9 Pneumonia, unspecified organism; I48.20 Chronic atrial fibrillation, unspecified; I12.9 Hypertensive chronic kidney disease with stage 1 through stage 4 chronic kidney disease, or unspecified chronic kidney disease; N18.9 Chronic kidney disease, unspecified; E83.42 Hypomagnesemia; E03.9 Hypothyroidism, unspecified; D50.9 Iron deficiency anemia, unspecified; E78.5 Hyperlipidemia, unspecified; N40.0 Benign prostatic hyperplasia without lower urinary tract symptoms; R79.1 Abnormal coagulation profile; R29.6 Repeated falls; Z79.01 Long term (current) use of anticoagulants; Z95.2 Presence of prosthetic heart valve
CPT/HCPCS: 36415; 36600; 70450; 71045; 80053; 80307; 81003; 82140; 82550; 82805; 83605; 83735; 84443; 84484; 85025; 85027; 85610; 85730; 87040; 93005; 96361; 96365; 96368; 96375; 97110; 97161; 97530; 99285; A9270; G0378; J0456; J0696; J7030

== ENCOUNTER 2022-09-25 08:50 | Observation (INO) | payer MEDICARE, BC, SELFPAY ==
--- NOTE | ~2022-09-25 | CT_ITS ---
EXAMINATION: CT brain wo con DATE: 09/25/2022 09:25 INDICATION: Patient fell today and struck back of head. Laceration occipital area. History of dementi a. TECHNIQUE: Computed tomography (CT) of the head was performed without intravenous contrast. The mA wa s adjusted according to patient size. Iterative reconstruction technique was employed. Exam dose: 68 1.00 mGy-cm total exam DLP. COMPARISON: 08/19/2022 CT brain FINDINGS: There is posterior left parietal cephalohematoma. No associated coup or contrecoup intracra nial injury is noted. No skull fracture. There is central and cortical cerebral atrophy. There is nonspecific diminished attenuation of the ce rebral white matter, likely due to chronic small vessel ischemic changes. Prominent bilateral carotid siphon internal carotid artery and vertebral artery calcifications, basilar artery calcification. No intracranial mass lesion or hemorrhage or recent cerebrovascular accident, midline shift or mass e ffect effect is detected. No subdural or epidural hematoma. The orbits are unremarkable. Chronic prominent partially calcified mucoperiosteal thickening of the right maxillary sinus. The par anasal sinuses and mastoid air cells are otherwise unremarkable. IMPRESSION: Left posterior parietal cephalhematoma; no associated coup or contrecoup intracranial in jury or skull fracture Cerebral atherosclerosis and chronic small vessel ischemic changes of the cerebral white matter No acute intracranial finding Chronic right maxillary sinusitis Reviewed, dictated and finalized at [facility]. Reviewed, dictated and finalized at location [facility]. IMPRESSION: Left posterior parietal cephalhematoma; no associated coup or cont recoup intracranial injury or skull fracture Cerebral atherosclerosis and chronic small vessel ischemic changes of the cereb ral white matter No acute intracranial finding Chronic right maxillary sinusitis
--- NOTE | ~2022-09-25 | CT_ITS ---
EXAMINATION: CT cervical spine wo con DATE: 09/25/2022 09:25 INDICATION: Fall today. Posterior head laceration, hematoma. Generalized pain. TECHNIQUE: Computed tomography (CT) of the cervical spine was performed without intravenous contrast. Automated exposure control and iterative reconstruction technique were employed. Exam dose: 312.27 mGy-cm total exam DLP. COMPARISON: 06/16/2018 CTA chest 09/08/[address] cervical spine FINDINGS: There is cervical spondylosis including severe degenerative disc disease at C3-4, C5-6 and C6-7 with minimal retrolisthesis at each of these levels, moderate degenerative disc disease at C2-3 and C4-5 C1 and C2 are normally aligned and the odontoid process is intact. No fracture or dislocation or lock ed facet or prevertebral soft tissue swelling. There is apophyseal joints and uncovertebral joint spurring throughout much of the cervical spine. Probable chronic interstitial pulmonary fibrotic changes. Active pulmonary infiltrates are not exclud ed. IMPRESSION: Prominent cervical spondylosis; no fracture or dislocation or locked facet Reviewed, dictated and finalized at [facility]. Reviewed, dictated and finalized at [facility]. IMPRESSION: Prominent cervical spondylosis; no fracture or dislocation or lock ed facet
--- NOTE | ~2022-09-25 | XR_ITS ---
XR chest 1V portable DATE: 09/25/2022 10:33 INDICATION: Fall today. History of atrial fibrillation, heart valve replacement TECHNIQUE: 2 portable AP views on September 25, 2022 1026 hours COMPARISON: 09/08/2022 portable AP chest FINDINGS: Status post sternotomy and cardiac valve replacement. Cardiomegaly. Aortic calcification an d mild unfolding. There is pulmonary vessel congestion and redistribution. There is diffuse bilateral pulmonary interst itial prominence, with Merissa B-lines, consistent with pulmonary interstitial edema. No pneumothorax. There is minimal if any pleural effusion. Osteopenia. Probable bilateral rotator cuff atrophy. IMPRESSION: Congestive heart failure and pulmonary edema Aortic atherosclerosis Status post cardiac valve replacement Reviewed, dictated and finalized at location [facility].
[2022-09-25 08:50] VITALS: BP 123/64; PULSE 93; RESP 18; TEMP 36.7; O2SAT 95
--- NOTE | 2022-09-25 09:08 | ED.FALL ---
HPI - Fall General Chief Complaint: Fall Stated Complaint: fall/head laceration Time Seen by Provider: 09/25/22 08:57 History of Present Illness HPI Narrative: HPI obtained from EMS and nursing staff This is a 86-year-old male with past history of A-fib on Coumadin, brought in by EMS [facility] group home staff, report the patient was walking on his own with his walker, when he lost balance, falling backwards and hitting the back of his head. They deny loss of consciousness. The patient is supposed to be accompanied at all times while walking. They state the patient at baseline is alert and oriented x1 and has normal slurred, confused speech. EMS reports similar findings. Vital signs reported within normal range in route. Related Data Home Medications Medication Instructions Recorded Confirmed lisinopril 2.5 mg tablet 2.5 mg PO DAILY 01/25/22 09/25/22 lovastatin 40 mg tablet 40 mg PO DAILY 01/25/22 09/25/22 tamsulosin 0.4 mg capsule (Flomax) 0.4 mg PO DAILY 01/25/22 09/25/22 verapamil 40 mg tablet 120 mg PO DAILY 01/25/22 09/25/22 warfarin 5 mg tablet 5 mg PO DAILY 01/25/22 09/25/22 diclofenac sodium 1 % topical gel See Rx Instructions .Route 09/08/22 09/25/22 .COMPLEX PRN Pain levothyroxine 100 mcg tablet 100 mcg PO DAILY 09/08/22 09/25/22 potassium chloride 20 mEq 20 meq PO DAILY 09/08/22 09/25/22 tablet,extended release(part/cryst) (Klor-Con M) digoxin 125 mcg (0.125 mg) tablet 125 mcg PO DAILY 09/25/22 09/25/22 Allergies Allergy/AdvReac Type Severity Reaction Status Date / Time No Known Allergies Allergy Mild Verified 09/08/22 11:02 Review of Systems Review of Systems: Unable to obtain review of systems due to patient's baseline altered mental status [facility] Past Medical History Medical History (Updated 09/25/22 @ 11:06 by Herberth Cisse MD) Atrial fibrillation BPH (benign prostatic hyperplasia) History of atrial fibrillation History of hyperlipidemia History of hypertension Hyperlipidemia Surgical History Surgical History (Updated 09/25/22 @ 09:09 by Herberth Cisse MD) H/O arthroscopic knee surgery H/O hernia repair Heart valve replaced History of repair of right hip joint Hx of cholecystectomy S/P tonsillectomy and adenoidectomy Family History Family History Mother Heart disease Father Alcohol abuse by father Sibling Acute myocardial infarction Other Hypertension Social History Social History Social History: The patient lives with his who has dementia and he has been caring for her. They have had 3 children. He is retired from [employer]. Code status full code Smoking status: Unknown if ever smoked Second hand tobacco smoke exposure: No Alcohol intake: unknown Substance use: unknown Substance use type: does not use Lack of Transportation: No Lack of Food: Never True Current Housing: I Have Housing Concerned About Future Housing: No Difficulty Paying Gas/Electric Bills: No Difficulty Paying for Meds: No Currently Unemployed: No Education: Grade School Difficulty w/ Childcare or Family Care: No Living arrangements: with family Spiritual care concerns: No Exam Narrative: GENERAL: Well-developed, well-nourished, and in no acute distress. HEAD: Normocephalic, ecchymosis is noted to the posterior aspect of the scalp overlying a small hematoma. There is a single superficial puncture wound without other laceration. EYES: PERRLA and EOMI. ENT: Nares clear, no rhinorrhea or epistaxis. Mucous membranes moist. Oropharynx without tonsillar hypertrophy exudate or other lesions. Dentures in place. No facial tenderness to palpation NECK: Supple. No adenopathy or masses. No carotid bruits or JVD. No midline spine tenderness to palpation, no step-off or crepitus CHEST: Clear to auscultati
--- NOTE | 2022-09-25 09:12 | ECG_ITS ---
Measurements Intervals [place] Rate: 78 P: NC: 0 QRS: 86 QRSD: 114 T: 67 QT: 391 QTc: 446 Interpretive Statements ATRIAL FIBRILLATION MODERATE INTRAVENTRICULAR CONDUCTION DELAY [110+ ms QRS DURATION] NONSPECIFIC ST & T-WAVE ABNORMALITY ABNORMAL ECG COMPARED TO ECG 09/08/2022 11:14:38 T-WAVE ABNORMALITY NOW PRESENT Electronically Signed On 09-25-2022 13:35:33 CDT by Enio Galdamez M.D.
[2022-09-25 09:52] LABS: Basophils Absolute Auto 0.02 K/mm3 (0.00-0.10); Basophils Percent Auto 0.4 % (0.0-1.0); Eosinophils Absolute Auto 0.24 K/mm3 (0.02-0.50); Eosinophils Percent Auto 4.5 % (1.0-6.0); Hematocrit 32.6 % (37.0-46.0); Hemoglobin 10.9 g/dL (12.4-15.3); Immature Granulocyte Absolute 0.03 K/mm3 (0.00-0.00); Immature Granulocyte Percent A 0.6 % (0.0-0.0); Lymphocytes Absolute Auto 0.59 K/mm3 (1.10-4.50); Lymphocytes Percent Auto 11.2 % (18.0-42.0); Mean Corpuscular HGB Conc 33.4 g/dL (32.0-36.0); Mean Corpuscular Hemoglobin 33.7 pg (27.0-31.0); Mean Corpuscular Volume 100.9 fL (78.0-102.0); Mean Platelet Volume 8.1 fl (8.7-11.0); Monocytes Absolute Auto 0.75 K/mm3 (0.10-0.90); Monocytes Percent Auto 14.2 % (2.0-11.0); Neutrophils Absolute Auto 3.7 K/mm3 (1.7-7.2); Neutrophils Percent Auto 69.1 % (50.0-70.0); Platelet Count Result 262 K/mm3 (150-420); Red Blood Count 3.23 M/mm3 (4.70-6.10); Red Cell Distribution Width 12.7 % (11.6-14.4); White Blood Count 5.3 K/mm3 (4.8-10.8)
[2022-09-25 09:53] LABS: Appearance Urine Clear (Clear); Bilirubin Urine Negative (Negative); Blood Urine Negative (Negative); Color Urine Light Yellow (Yellow); Glucose Urine UA Negative (Negative); Ketones Urine Negative (Negative); Leukocyte Esterase Ur Negative LEU/UL (Negative); Nitrate Urine Negative (Negative); Protein Urine Negative (Negative); Specific Grav Ur 1.015 (1.010-1.020); pH Urine 6.5 (5.0-8.0)
[2022-09-25 09:57] LABS: Add Urine Microscopic? NO
[2022-09-25 10:05] VITALS: BP 113/64; PULSE 74; RESP 20; TEMP 36.7; O2SAT 97
[2022-09-25 10:10] LABS: Alanine Aminotransferase 23 U/L (16-63); Albumin Level 2.9 g/dL (3.4-5.0); Alkaline Phosphatase 171 U/L (46-116); Anion Gap 7 mmol/L (8-16); Aspartate Amino Transferase 42 U/L (15-37); Bilirubin,Total 1.5 mg/dL (0.00-1.00); Blood Urea Nitrogen 11 mg/dL (7-18); Calcium 8.4 mg/dL (8.5-10.1); Carbon Dioxide 28 mmol/L (21-32); Chloride 96 mmol/L (98-108); Estimated CRCL calculation 47 ml/min; Estimated Glomerular Filt Rate > 60; Glucose 112 mg/dL (70-99); Osmolality Calculated 272 mOsm/kg (285-295); Sodium 131 mmol/L (136-145); Total Protein 6.7 g/dL (6.4-8.2)
[2022-09-25 10:11] LABS: Digoxin 0.5 ng/mL (0.9-2.0)
[2022-09-25 10:11] LABS: Prothrombin Time 49.2 Seconds (9.50-12.10); Troponin I 31.4 ng/L (0.00-60.4)
[2022-09-25 10:14] LABS: INR 5.1
[2022-09-25 10:54] VITALS: BP 124/74; PULSE 65; RESP 18; TEMP 36.9; O2SAT 98
--- NOTE | 2022-09-25 11:07 | PC.NURSE ---
pt to be admitted to floor room 207 per evelio, charge nurse.
[2022-09-25 11:08] VITALS: BP 115/75; PULSE 84; RESP 20; TEMP 36.9; O2SAT 97
[2022-09-25] MEDS: FUROSEMIDE INJ 40 MG/4 ML VIAL IV PUSH (11:17)
--- NOTE | 2022-09-25 11:35 | ADMGEN ---
This patient, America Weinberg, was admitted to 2nd Floor Room 207-1. Patient/family oriented to hospital policies and general routines including ID bracelet, bed and alarms, visiting hours, pain management, procedures, bathroom and other care routines, personal items, smoking policy, room service/diet, and visiting hours. Information on how to activate the Rapid Response Team has been discussed. Patient/Family are encouraged to report perceived risks to care and to ask questions if they do not understand what they are told or what they should do.
[2022-09-25 12:12] VITALS: BMI 25.7
[2022-09-25 16:00] VITALS: BP 107/64; PULSE 83; RESP 17; TEMP 36.6; O2SAT 97
[2022-09-25] MEDS: SODIUM CHLORIDE 1 GM TABLET PO (20:25)
[2022-09-25] MEDS: traZODone HCL 50 MG TABLET PO (20:26)
[2022-09-25] MEDS: DOCUSATE SODIUM 100 MG CAPSULE PO (20:26)
[2022-09-25] MEDS: traMADol HCL (*CRX) 25 MG TABLET PO (20:26)
[2022-09-25 23:09] VITALS: BP 92/53; PULSE 86; RESP 17; TEMP 36.8; O2SAT 93
[2022-09-26 03:35] VITALS: PULSE 88
[2022-09-26 04:00] VITALS: BP 97/67; PULSE 81; RESP 16; TEMP 36.3; O2SAT 94
[2022-09-26] MEDS: traMADol HCL (*CRX) 25 MG TABLET PO (05:12)
[2022-09-26 05:17] LABS: Hematocrit 32.1 % (37.0-46.0); Hemoglobin 10.7 g/dL (12.4-15.3); Mean Corpuscular HGB Conc 33.3 g/dL (32.0-36.0); Mean Corpuscular Hemoglobin 33.8 pg (27.0-31.0); Mean Corpuscular Volume 101.3 fL (78.0-102.0); Platelet Count Result 249 K/mm3 (150-420); Red Blood Count 3.17 M/mm3 (4.70-6.10); Red Cell Distribution Width 12.7 % (11.6-14.4); White Blood Count 3.9 K/mm3 (4.8-10.8)
--- NOTE | 2022-09-26 05:28 | PC.NURSE ---
Bandage located on the back of pt's head changed. Area cleansed w/sterile saline and dried w/gauze pads. Gauze applied to area and secured w/paper tape to help prevent hair from being pulled out when changing bandage. Pt tolerated intervention very well.
[2022-09-26 05:35] LABS: Alanine Aminotransferase 21 U/L (16-63); Albumin Level 2.5 g/dL (3.4-5.0); Alkaline Phosphatase 160 U/L (46-116); Anion Gap 8 mmol/L (8-16); Aspartate Amino Transferase 42 U/L (15-37); Bilirubin,Total 2.3 mg/dL (0.00-1.00); Blood Urea Nitrogen 11 mg/dL (7-18); Calcium 8.5 mg/dL (8.5-10.1); Carbon Dioxide 28 mmol/L (21-32); Chloride 97 mmol/L (98-108); Estimated CRCL calculation 51 ml/min; Estimated Glomerular Filt Rate > 60; Glucose 87 mg/dL (70-99); Osmolality Calculated 274 mOsm/kg (285-295); Potassium 3.5 mmol/L (3.5-5.1); Sodium 133 mmol/L (136-145); Total Protein 6.1 g/dL (6.4-8.2)
[2022-09-26 05:38] LABS: INR 4.7; Prothrombin Time 45.1 Seconds (9.50-12.10)
--- NOTE | 2022-09-26 05:50 | PM.SD2 ---
Same Day Admit/Disch: HPI History of Present Illness Chief complaint: pulmonary edema Narrative: America Weinberg is a 86 year old male with past history of A-fib on Coumadin, brought in by EMS after a fall at his snf.? assisted staff, report the patient was walking on his own with his walker, when he lost balance, falling backwards and hitting the back of his head.? They deny loss of consciousness.? The patient is supposed to be accompanied at all times while walking.? They state the patient at baseline is alert and oriented x1 and has normal slurred, confused speech.? EMS reports similar findings. Patient PT INR supratherapeutic warfarin held for 2 days , no increased and confusion patient denies any headaches. No obvious distress noted. [facility] Past Medical History Medical History (Updated 09/25/22 @ 11:06 by Herberth Cisse MD) Atrial fibrillation BPH (benign prostatic hyperplasia) History of atrial fibrillation History of hyperlipidemia History of hypertension Hyperlipidemia Surgical History Surgical History (Updated 09/25/22 @ 09:09 by Herberth Cisse MD) H/O arthroscopic knee surgery H/O hernia repair Heart valve replaced History of repair of right hip joint Hx of cholecystectomy S/P tonsillectomy and adenoidectomy Family History Family History Mother Heart disease Father Alcohol abuse by father Sibling Acute myocardial infarction Other Hypertension Social History Social History Social History: The patient lives with his who has dementia and he has been caring for her. They have had 3 children. He is retired from [employer]. Code status full code Smoking status: Unknown if ever smoked Second hand tobacco smoke exposure: No Alcohol intake: unknown Substance use: unknown Substance use type: does not use Lack of Transportation: No Lack of Food: Never True Current Housing: I Have Housing Concerned About Future Housing: No Difficulty Paying Gas/Electric Bills: No Difficulty Paying for Meds: No Currently Unemployed: No Education: Grade School Difficulty w/ Childcare or Family Care: No Living arrangements: with family Spiritual care concerns: No Same Day Admit/Disch: Med Pre-admit Medications Home Medications Medication Instructions Recorded Confirmed Type lisinopril 2.5 mg tablet 2.5 mg PO DAILY 01/25/22 09/25/22 History lovastatin 40 mg tablet 40 mg PO DAILY 01/25/22 09/25/22 History tamsulosin 0.4 mg capsule (Flomax) 0.4 mg PO DAILY 01/25/22 09/25/22 History warfarin 5 mg tablet 5 mg PO DAILY 01/25/22 09/25/22 History acetaminophen 325 mg tablet (Mapap 650 mg PO Q4H PRN Headache 30 days 08/11/22 09/25/22 Rx (acetaminophen)) #30 tabs calcium carbonate 500 mg calcium 200 mg PO Q6H PRN Indigestion 30 08/11/22 09/25/22 Rx (1,250 mg) chewable tablet days #30 tabs docusate sodium 100 mg capsule 100 mg PO Q12HR 30 days #60 caps 08/11/22 09/25/22 Rx peg 255-goxfyzxymwgw-iiqawxou 1 1 drp EACH EYE QID PRN Dry Eye(S) 08/11/22 09/25/22 Rx %-0.2 %-0.2 % eye drops 30 days #15 mL (Artificial Tears ([id number]-[id number])) polyethylene glycol 3350 17 gram 17 g PO QAM PRN Constipation 30 08/11/22 09/25/22 Rx oral powder packet (Miralax) days #30 ea simethicone 80 mg chewable tablet 80 mg PO QID PRN Gas Discomfort 30 08/11/22 09/25/22 Rx days #30 tabs diclofenac sodium 1 % topical gel See Rx Instructions .Route 09/08/22 09/25/22 History .COMPLEX PRN Pain levothyroxine 100 mcg tablet 100 mcg PO DAILY 09/08/22 09/25/22 History potassium chloride 20 mEq 20 meq PO DAILY 09/08/22 09/25/22 History tablet,extended release(part/cryst) (Klor-Con M) hydrocodone 5 mg-acetaminophen 325 1 tablet PO Q4H PRN Moderate Pain 09/10/22 09/25/22 Rx mg tablet (4-6) #15 tabs sodium chloride 1,000 mg soluble 1,000 mg PO BID
[2022-09-26 08:00] VITALS: BP 107/62; PULSE 75; RESP 16; TEMP 36.4; O2SAT 97
[2022-09-26] MEDS: lisinopriL 2.5 MG TABLET PO (08:48)
[2022-09-26] MEDS: LEVOTHYROXINE SODIUM 100 MCG TABLET PO (08:48)
[2022-09-26] MEDS: LOVASTATIN 20 MG TABLET 40 MG PO (08:49)
[2022-09-26] MEDS: POTASSIUM CHLORIDE 20 MEQ TABLET PO (08:49)
[2022-09-26] MEDS: SODIUM CHLORIDE 1 GM TABLET PO (08:50)
[2022-09-26] MEDS: TAMSULOSIN HCL 0.4 MG CAPSULE PO (08:50)
[2022-09-26] MEDS: FUROSEMIDE INJ 20 MG/2 ML VIAL IV PUSH (08:50)
[2022-09-26] MEDS: VERAPAMIL HCL ER 120 MG TABLET 240 MG PO (09:22)
--- NOTE | 2022-09-26 11:14 | PC.NURSE ---
Report called to Fatou at [facility]. Patient picked up by SLEEVE SEPARATOR from senior living and transported back to senior living by wheelchair
--- NOTE | 2022-09-27 09:34 | PC.NURSE ---
detention nurse states they received and understood the discharge instructions.
== END 2022-09-26 11:15 ==
LOC: CHSED 11:06 → CHS2ND 11:09
PROVIDERS: Nurse Practitioner; Admitting Provider Internal Medicine; Emergency Provider Preventive Medicine Aerospace Medicine; PCP Internal Medicine; Visit Provider Internal Medicine
DX: J81.0 Acute pulmonary edema (principal); S00.03XA Contusion of scalp, initial encounter; S00.01XA Abrasion of scalp, initial encounter; I48.20 Chronic atrial fibrillation, unspecified; I10 Essential (primary) hypertension; J81.1 Chronic pulmonary edema; D50.9 Iron deficiency anemia, unspecified; E78.5 Hyperlipidemia, unspecified; E03.9 Hypothyroidism, unspecified; N40.0 Benign prostatic hyperplasia without lower urinary tract symptoms; R29.6 Repeated falls; R79.1 Abnormal coagulation profile; W19.XXXA Unspecified fall, initial encounter; Z95.2 Presence of prosthetic heart valve; Z79.01 Long term (current) use of anticoagulants
CPT/HCPCS: 36415; 70450; 71045; 72125; 80053; 80162; 81003; 84484; 85025; 85027; 85610; 93005; 96374; 96376; 97161; 99285; A9270; G0378; J1940

== ENCOUNTER 2022-10-10 15:48 | Inpatient (IN) | payer MEDICARE, BC, SELFPAY ==
[2022-10-10] VITALS (9 sets, daily range): BP systolic 100–129; BP diastolic 50–54; PULSE 76–102; RESP 18–20; TEMP 38.3–39.2; O2SAT 88–97
--- NOTE | ~2022-10-10 | XR_ITS ---
EXAMINATION: XR chest 1V portable INDICATION: Fever TECHNIQUE: Portable AP chest at 1641 hours COMPARISON: 09/25/2022 FINDINGS: A mild diffuse interstitial pattern is present. Cardiomegaly is noted. No pleural effusion or pneumothorax. Median sternotomy wires are consistent with prior cardiac surgery. IMPRESSION: 1. Cardiomegaly with mild pulmonary edema. Reviewed, dictated and finalized at location [facility].
--- NOTE | ~2022-10-10 | CT_ITS ---
EXAMINATION: CT brain wo con INDICATION: Confusion, multiple falls COMPARISON: 09/25/2022 TECHNIQUE: Standard unenhanced head CT. The dose-length product (DLP) was 605.33 mGy-cm. The mA was a djusted according to patient size. Iterative reconstruction technique was employed. FINDINGS: There is no acute intraparenchymal hemorrhage. No evidence of mass lesion. No evidence of a cute infarction. An old left frontal lobe infarct is noted. There is a resolving left parietal scalp hematoma. There is moderate periventricular and subcortical hypodensity probably related to small ves kezia ischemic disease. There is moderate prominence of the sulci and ventricles related to cerebral at rophy. Intracranial calcified cerebral atherosclerosis is noted. There are no extra-axial collections . There is no mass effect or midline shift. The orbits are unremarkable. Chronic right maxillary sinu sitis is noted. IMPRESSION: 1. No acute intracranial abnormality. 2. Age related findings. Reviewed, dictated and finalized at location [facility].
--- NOTE | 2022-10-10 15:50 | ECG_ITS ---
Measurements Intervals [place] Rate: 92 P: ND: 0 QRS: 75 QRSD: 106 T: 39 QT: 340 QTc: 422 Interpretive Statements ATRIAL FIBRILLATION NONSPECIFIC ST & T-WAVE ABNORMALITY ABNORMAL ECG COMPARED TO ECG 09/25/2022 09:43:18 NO SIGNIFICANT CHANGES Electronically Signed On 10-11-2022 14:27:05 CDT by Mando Prater M.D.
--- NOTE | 2022-10-10 15:53 | ED.AMS ---
HPI - Altered Mental Status General Chief Complaint: Altered Mental Status Stated Complaint: Fever/Altered Mental Status Time Seen by Provider: 10/10/22 15:50 History of Present Illness HPI narrative: Pt presents from local PCP office with altered LOC today. Daughter states he was fine last night. Pt is confused today and not himself. Pt apparently fell today as well. Pt running fever here. Daugterstates he had catheter in recently. Pt not able to provide any history himself all through daughter and doctor's office report. Related Data Home Medications Medication Instructions Recorded Confirmed lovastatin 40 mg tablet 40 mg PO DAILY 01/25/22 10/10/22 tamsulosin 0.4 mg capsule (Flomax) 0.4 mg PO DAILY 01/25/22 10/10/22 warfarin 5 mg tablet 2 mg PO DAILY 01/25/22 10/10/22 diclofenac sodium 1 % topical gel See Rx Instructions .Route 09/08/22 10/10/22 .COMPLEX PRN Pain levothyroxine 100 mcg tablet 100 mcg PO DAILY 09/08/22 10/10/22 potassium chloride 20 mEq 20 meq PO DAILY 09/08/22 10/10/22 tablet,extended release(part/cryst) (Klor-Con M) digoxin 125 mcg (0.125 mg) tablet 125 mcg PO DAILY 09/25/22 10/10/22 verapamil 240 mg tablet,extended 120 mg PO DAILY 09/26/22 10/10/22 release cyanocobalamin (vitamin B-12) 1,000 mcg PO DAILY 10/10/22 10/10/22 1,000 mcg tablet docusate sodium 100 mg capsule 100 mg PO DAILY PRN Constipation 10/10/22 10/10/22 (Colace) furosemide 40 mg tablet 20 mg PO DAILY 10/10/22 10/10/22 neomycin-bacitracn Zn-polymyxn 3.5 1 applic topical DAILY 10/10/22 10/10/22 mg-400 unit-5,000 unit top oint pkt (Triple Antibiotic) Allergies Allergy/AdvReac Type Severity Reaction Status Date / Time No Known Allergies Allergy Mild Verified 09/08/22 11:02 Review of Systems Review of Systems: ROS unobtainable: Yes unobtainable due to mental status PMFSH Past Medical History Medical History (Updated 10/10/22 @ 17:59 by Myra Donovan III, DO) Atrial fibrillation BPH (benign prostatic hyperplasia) History of atrial fibrillation History of hyperlipidemia History of hypertension Hyperlipidemia Surgical History Surgical History (Updated 09/25/22 @ 09:09 by Herberth Cisse MD) H/O arthroscopic knee surgery H/O hernia repair Heart valve replaced History of repair of right hip joint Hx of cholecystectomy S/P tonsillectomy and adenoidectomy Family History Family History Mother Heart disease Father Alcohol abuse by father Sibling Acute myocardial infarction Other Hypertension Social History Social History Social History: The patient lives with his who has dementia and he has been caring for her. They have had 3 children. He is retired from [employer]. Code status full code Smoking status: Unknown if ever smoked Second hand tobacco smoke exposure: No Alcohol intake: unknown Substance use: unknown Substance use type: does not use Lack of Transportation: No Lack of Food: Never True Current Housing: I Have Housing Concerned About Future Housing: No Difficulty Paying Gas/Electric Bills: No Difficulty Paying for Meds: No Currently Unemployed: No Education: Grade School Difficulty w/ Childcare or Family Care: No Living arrangements: with family Spiritual care concerns: No Exam Const: General: healthy appearing, no acute distress and confusion Nutritional Appearance: average body habitus Orientation/consciousness: confusion Limitations: altered mental status HENMT: Head: other (old bruise to occiput) Mouth: Yes Normal oral and palatal mucosa present Throat: posterior oropharynx abnormal Eyes: General: appearance normal, both eyes and all related structures Neck: Neck: normal visual inspection, full ROM, no lymphadenopathy and no meningeal signs Resp: Effort & Inspection: normal respiratory effort A
[2022-10-10 16:24] LABS: Basophils Absolute Auto 0.01 K/mm3 (0.00-0.10); Basophils Percent Auto 0.1 % (0.0-1.0); Eosinophils Absolute Auto 0.02 K/mm3 (0.02-0.50); Eosinophils Percent Auto 0.2 % (1.0-6.0); Hematocrit 38.8 % (37.0-46.0); Hemoglobin 12.4 g/dL (12.4-15.3); Immature Granulocyte Percent A 0.8 % (0.0-0.0); Lymphocytes Absolute Auto 0.56 K/mm3 (1.10-4.50); Lymphocytes Percent Auto 4.7 % (18.0-42.0); Mean Corpuscular Hemoglobin 33.3 pg (27.0-31.0); Mean Corpuscular Volume 104.3 fL (78.0-102.0); Mean Platelet Volume 8.3 fl (8.7-11.0); Monocytes Percent Auto 6.7 % (2.0-11.0); Neutrophils Absolute Auto 10.5 K/mm3 (1.7-7.2); Neutrophils Percent Auto 87.5 % (50.0-70.0); Platelet Count Result 336 K/mm3 (150-420); Red Blood Count 3.72 M/mm3 (4.70-6.10); Red Cell Distribution Width 14.3 % (11.6-14.4)
[2022-10-10 16:35] LABS: Appearance Urine Clear (Clear); Bilirubin Urine Negative (Negative); Color Urine Light Yellow (Yellow); Glucose Urine UA Negative (Negative); Ketones Urine Negative (Negative); Leukocyte Esterase Ur 2+ LEU/UL (Negative); Nitrate Urine Positive (Negative); Protein Urine Negative (Negative); Urobilinogen Urine 0.2 mg/dL (0.2-1.0)
[2022-10-10 16:36] LABS: Add Urine Microscopic? YES; Bacteria Urine 1+ /hpf; Blood Urine Trace (Negative); RBC Urine 0-2 /hpf (0-2); Squamous Epithelial Cell Urine Rare /hpf (Few); WBC Urine >75 /hpf (0-3)
[2022-10-10 16:40] LABS: Alanine Aminotransferase 29 U/L (16-63); Albumin Level 3.1 g/dL (3.4-5.0); Alkaline Phosphatase 162 U/L (46-116); Anion Gap 8 mmol/L (8-16); Aspartate Amino Transferase 44 U/L (15-37); Bilirubin,Total 1.3 mg/dL (0.00-1.00); Blood Urea Nitrogen 15 mg/dL (7-18); CRP 2.7 mg/dL (0.0-0.9); Calcium 9.3 mg/dL (8.5-10.1); Carbon Dioxide 28 mmol/L (21-32); Chloride 98 mmol/L (98-108); Estimated CRCL calculation 38 ml/min; Estimated Glomerular Filt Rate 60; Glucose 113 mg/dL (70-99); Osmolality Calculated 279 mOsm/kg (285-295); Sodium 134 mmol/L (136-145); Total Protein 7.9 g/dL (6.4-8.2)
[2022-10-10 16:40] LABS: INR 1.6; Partial Thromboplastin Time 32.8 SEC (23.90-30.70); Prothrombin Time 16.7 Seconds (9.50-12.10)
[2022-10-10 16:42] LABS: Lactic Acid Reflex 0.4 mmol/L (0.4-2.0)
[2022-10-10 16:47] LABS: Digoxin 0.7 ng/mL (0.9-2.0); Thyroid Stimulating Hormone 35.34 uIU/mL (0.36-3.74)
[2022-10-10 16:52] LABS: NT Pro B Type Natriuretic Pept 4140 pg/mL (0-450)
[2022-10-10] MEDS: IPRATROPIUM 0.5 MG/ALBUTEROL SULFATE 2.5 MG AMPUL.NEB 3 ML INHALATION (17:04)
[2022-10-10 17:15] LABS: Influenza A QL RT-PCR Negative (Negative); Influenza B QL RT-PCR Negative (Negative); SARS-CoV-2 RNA PCR Positive (Negative)
[2022-10-10] MEDS: FUROSEMIDE INJ 20 MG/2 ML VIAL IV PUSH (17:18)
--- NOTE | 2022-10-10 18:39 | ADMGEN ---
This patient, America Weinberg, was admitted to 2nd Floor Room 207-1. Patient/family oriented to hospital policies and general routines including ID bracelet, bed and alarms, visiting hours, pain management, procedures, bathroom and other care routines, personal items, smoking policy, room service/diet, and visiting hours. Patient unable to comprehend at this time. Family reminded of visiting restrictions for covid patients Information on how to activate the Rapid Response Team has been discussed. Patient/Family are encouraged to report perceived risks to care and to ask questions if they do not understand what they are told or what they should do.
--- NOTE | 2022-10-10 19:45 | PC.NURSE ---
Patient was awake, but unresponsive to questions or commands. Patient was unable to answer any questions, but did moan/groan in response to unpleasant stimuli. Patient was wet and still in blue gown. Patient was cleaned up, depends changed, and patient pulled up in bed. No improvement in mental status noted.
[2022-10-10] MEDS: WARFARIN (*PBKC) 2 MG TABLET PO (19:48)
--- NOTE | 2022-10-10 21:40 | PC.NURSE ---
Patient was again found to be wet. Depends changed, patient still awake, but again unresponsive to questions or commands. No improvement in mental status noted.
[2022-10-10] MEDS: HYDROcodone/acetaminophen (*CRX) 5-325 MG TABLET 1 TAB PO (21:47)
[2022-10-10] MEDS: traZODone HCL 50 MG TABLET PO (21:48)
--- NOTE | 2022-10-10 23:00 | PC.NURSE ---
Patient was sleeping when entered room. Patient was again found to be wet. Depends changed, patient pulled up in bed. Patient still unresponsive to questions or commands. No improvement in mental status noted.
[2022-10-11] VITALS (9 sets, daily range): BP systolic 92–112; BP diastolic 55–65; PULSE 50–102; RESP 16–20; TEMP 37.1–38.2; O2SAT 95–100; BMI 10.0
[2022-10-11] MEDS: ACETAMINOPHEN 325 MG TABLET 650 MG PO ×2 (01:51→17:08)
--- NOTE | 2022-10-11 02:03 | PC.NURSE ---
Pt given Tylenol as per order for increased temp at this time. Pt taking his pills whole and is able to follow simple commands, pt turned himself to back when asked to roll. Pt diaper changed at this time, taking sips of water c assist. Call wilson at side.
--- NOTE | 2022-10-11 04:37 | PC.NURSE ---
Patient has been pulling his telemetry leads off immediately after they are replaced. Telemetry has been put on stand-by until we can try them again. Patient has a history of A Fib, and his telemetry strips have consistently shown that, with rate within normal limits.
[2022-10-11 05:13] LABS: Hematocrit 33.5 % (37.0-46.0); Hemoglobin 10.8 g/dL (12.4-15.3); Mean Corpuscular HGB Conc 32.2 g/dL (32.0-36.0); Mean Corpuscular Hemoglobin 33.1 pg (27.0-31.0); Mean Corpuscular Volume 102.8 fL (78.0-102.0); Mean Platelet Volume 8.1 fl (8.7-11.0); Platelet Count Result 257 K/mm3 (150-420); Red Blood Count 3.26 M/mm3 (4.70-6.10); Red Cell Distribution Width 14.4 % (11.6-14.4); White Blood Count 7.5 K/mm3 (4.8-10.8)
[2022-10-11 05:26] LABS: INR 1.4; Prothrombin Time 15.3 Seconds (9.50-12.10)
[2022-10-11 05:27] LABS: Alanine Aminotransferase 25 U/L (16-63); Albumin Level 2.5 g/dL (3.4-5.0); Alkaline Phosphatase 116 U/L (46-116); Anion Gap 8 mmol/L (8-16); Aspartate Amino Transferase 45 U/L (15-37); Blood Urea Nitrogen 19 mg/dL (7-18); Calcium 8.5 mg/dL (8.5-10.1); Carbon Dioxide 27 mmol/L (21-32); Chloride 99 mmol/L (98-108); Estimated CRCL calculation 38 ml/min; Estimated Glomerular Filt Rate 60; Glucose 99 mg/dL (70-99); Osmolality Calculated 280 mOsm/kg (285-295); Sodium 134 mmol/L (136-145); Total Protein 6.5 g/dL (6.4-8.2)
--- NOTE | 2022-10-11 05:33 | PC.NURSE ---
Pt pulled out IV line from his Lt FA when lab was drawing blood. Pt cleaned and new bedding applied. New IV site started.
[2022-10-11] MEDS: LEVOTHYROXINE SODIUM 100 MCG TABLET PO (06:15)
[2022-10-11] MEDS: HYDROcodone/acetaminophen (*CRX) 5-325 MG TABLET 1 TAB PO (06:59)
--- NOTE | 2022-10-11 08:03 | PM.IMHP ---
H&P: HPI History of Present Illness Date/Time: 10/11/22 08:03 Chief Complaint: AMS Narrative: this is a 86-year-old male that presented to our [facility] department with a fever and increased altered mental status change. Patient has a past medical history of AFib, BPH, AFib, hyperlipidemia, and hypertension. Patient is a poor historian all information obtained from medical records. On admission patient's temperature 102.6?, pulse 96, respiratory rate 18, blood pressure 129/54, sats 88% room air, WBC 12, hemoglobin 12.4, hematocrit 38.8, platelets 336, sodium 134, potassium 5.0, BNP 15, creatinine 1.15, glucose 113, patient COVID positive. patient is a poor historian all permission obtained from medical records patient is being admitted for COVID positive. He does not appear to be in any distress. I am not sure if his mental status is baseline or not Review of Systems Review of Systems: All systems reviewed & are unremarkable except as noted in HPI and below PMFSH Past Medical History Medical History (Updated 10/10/22 @ 17:59 by Myra Donovan III, DO) Atrial fibrillation BPH (benign prostatic hyperplasia) History of atrial fibrillation History of hyperlipidemia History of hypertension Hyperlipidemia Surgical History Surgical History (Updated 09/25/22 @ 09:09 by Herberth Cisse MD) H/O arthroscopic knee surgery H/O hernia repair Heart valve replaced History of repair of right hip joint Hx of cholecystectomy S/P tonsillectomy and adenoidectomy Family History Family History Mother Heart disease Father Alcohol abuse by father Sibling Acute myocardial infarction Other Hypertension Social History Social History Social History: The patient lives with his who has dementia and he has been caring for her. They have had 3 children. He is retired from [employer]. Code status full code Smoking status: Unknown if ever smoked Second hand tobacco smoke exposure: No Alcohol intake: unknown Substance use: unknown Substance use type: does not use Lack of Transportation: No Lack of Food: Never True Current Housing: I Have Housing Concerned About Future Housing: No Difficulty Paying Gas/Electric Bills: No Difficulty Paying for Meds: No Currently Unemployed: No Education: Grade School Difficulty w/ Childcare or Family Care: No Living arrangements: with family Meds Home Medications and Allergies Home Medications Medication Instructions Recorded Confirmed Type lovastatin 40 mg tablet 40 mg PO DAILY 01/25/22 10/10/22 History tamsulosin 0.4 mg capsule (Flomax) 0.4 mg PO DAILY 01/25/22 10/10/22 History warfarin 5 mg tablet 2 mg PO DAILY 01/25/22 10/10/22 History acetaminophen 325 mg tablet (Mapap 650 mg PO Q4H PRN Headache 30 days 08/11/22 10/10/22 Rx (acetaminophen)) #30 tabs calcium carbonate 500 mg calcium 200 mg PO Q6H PRN Indigestion 30 08/11/22 10/10/22 Rx (1,250 mg) chewable tablet days #30 tabs peg [id number] 1 1 drp EACH EYE QID PRN Dry Eye(S) 08/11/22 10/10/22 Rx %-0.2 %-0.2 % eye drops 30 days #15 mL (Artificial Tears ([id number])) polyethylene glycol 3350 17 gram 17 g PO QAM PRN Constipation 30 08/11/22 10/10/22 Rx oral powder packet (Miralax) days #30 ea simethicone 80 mg chewable tablet 80 mg PO QID PRN Gas Discomfort 30 08/11/22 10/10/22 Rx days #30 tabs diclofenac sodium 1 % topical gel See Rx Instructions .Route 09/08/22 10/10/22 History .COMPLEX PRN Pain levothyroxine 100 mcg tablet 100 mcg PO DAILY 09/08/22 10/10/22 History potassium chloride 20 mEq 20 meq PO DAILY 09/08/22 10/10/22 History tablet,extended release(part/cryst) (Klor-Con M) hydrocodone 5 mg-acetaminophen 325 1 tablet PO Q4H PRN Moderate Pain 09/10/22 10/10/22 Rx mg tablet (4-6) #15 tabs digoxin 125 mcg (0
[2022-10-11] MEDS: LOVASTATIN 20 MG TABLET 40 MG PO (08:18)
[2022-10-11] MEDS: DIGOXIN TAB 125 MCG TABLET PO (08:18)
[2022-10-11] MEDS: VERAPAMIL HCL ER 120 MG TABLET PO (08:19)
[2022-10-11] MEDS: CYANOCOBALAMIN 1,000 MCG TABLET 1000 MCG PO (08:19)
[2022-10-11] MEDS: FUROSEMIDE INJ 40 MG/4 ML VIAL IV PUSH (08:19)
[2022-10-11] MEDS: TAMSULOSIN HCL 0.4 MG CAPSULE PO (08:19)
[2022-10-11] MEDS: POTASSIUM CHLORIDE 20 MEQ TABLET PO (08:19)
[2022-10-11] MEDS: NEOMYCIN/POLYMYXIN/BACITRACIN OINTMENT 15 GM TUBE 1 APPLIC TOPICAL (08:22)
[2022-10-11] MEDS: DEXAMETHASONE 2 MG TABLET 6 MG PO (10:47)
[2022-10-11] MEDS: REMDESIVIR 200 MG/NS 250 ML 200 MG/250 ML BAG 250 MG IVPB (11:03)
--- NOTE | 2022-10-11 15:20 | PC.NURSE ---
Pt sleeping, difficult to arouse to voice, responds more to touch. Blood pressure low, also bradycardic at 50bpm, pt is resting with eyes closed, charge nurse aware. P.T. entered room for assessment, stayed with patient to offer assistance. Pt was able to sit on side of bed with max assist, then assisted to standing, unable to follow commands thoroughly and difficulty moving LLE when prompted. Assisted back to bed. O2 in place at 2lpm, spo2 100%.
[2022-10-11] MEDS: WARFARIN (*PBKC) 2 MG TABLET PO (16:56)
--- NOTE | 2022-10-11 17:15 | PC.NURSE ---
Pt continues to rest, turning self in bed with some exertion, pt now more responsive and conversive, asked patient about pain, I just hurt all over, everywhere. , APAP given, see THU. Lucyebrile, 98.7. Warm blanket provided as patient states he was cold. Pt states he does not feel like eating anything at this time, dinner tray reserved and placed in refrigerator.
--- NOTE | 2022-10-11 18:04 | PC.NURSE ---
Pt more alert and making repetitive requests help me help me , asks to pull up window shades, then pull down window shades. When asked what help he needs, pt is quiet with no response, until staff turns to leave, then patient will yell out for help again, difficulty making needs known. Pt repositioned. Assessed for incontinence, depend clean and dry. Urinal placed for 5-7 minutes with encouragement to void, no void. Abdomen soft. Denies pain.
--- NOTE | 2022-10-11 18:20 | PC.NURSE ---
Patient's daughter called for an update on patient condition. Was relieved to hear that patient was more interactive and conversing this evening. Pt resting in bed watching TV, pt asked that the subtitles be taken off the tv, i dont like to see the words on there.
[2022-10-11] MEDS: LORazepam INJ (*CRX) 2 MG/ML VIAL 0.5 MG IV PUSH (21:08)
[2022-10-11] MEDS: traZODone HCL 50 MG TABLET PO (21:08)
[2022-10-12] VITALS: BP 106/62; PULSE 84; RESP 20; TEMP 37.1; O2SAT 96
[2022-10-12 05:24] LABS: Hematocrit 34.8 % (37.0-46.0); Hemoglobin 11.2 g/dL (12.4-15.3); Mean Corpuscular HGB Conc 32.2 g/dL (32.0-36.0); Mean Corpuscular Hemoglobin 33.3 pg (27.0-31.0); Mean Corpuscular Volume 103.6 fL (78.0-102.0); Mean Platelet Volume 8.7 fl (8.7-11.0); Platelet Count Result 281 K/mm3 (150-420); Red Blood Count 3.36 M/mm3 (4.70-6.10); Red Cell Distribution Width 14.3 % (11.6-14.4); White Blood Count 4.6 K/mm3 (4.8-10.8)
[2022-10-12 05:30] LABS: INR 1.3; Prothrombin Time 13.8 Seconds (9.50-12.10)
[2022-10-12 05:35] VITALS: O2SAT 94
[2022-10-12 05:38] LABS: Alanine Aminotransferase 30 U/L (16-63); Albumin Level 2.7 g/dL (3.4-5.0); Alkaline Phosphatase 117 U/L (46-116); Anion Gap 6 mmol/L (8-16); Aspartate Amino Transferase 48 U/L (15-37); Bilirubin,Total 0.6 mg/dL (0.00-1.00); Blood Urea Nitrogen 22 mg/dL (7-18); Carbon Dioxide 29 mmol/L (21-32); Chloride 100 mmol/L (98-108); Estimated CRCL calculation 47 ml/min; Estimated Glomerular Filt Rate > 60; Glucose 112 mg/dL (70-99); Osmolality Calculated 284 mOsm/kg (285-295); Potassium 4.2 mmol/L (3.5-5.1); Sodium 135 mmol/L (136-145); Total Protein 7.7 g/dL (6.4-8.2)
[2022-10-12] MEDS: LEVOTHYROXINE SODIUM 100 MCG TABLET PO (06:32)
[2022-10-12 08:00] VITALS: BP 121/82; PULSE 81; RESP 14; TEMP 35.9; O2SAT 94
--- NOTE | 2022-10-12 08:55 | PC.NURSE ---
Patient status changed to inpatient
--- NOTE | 2022-10-12 08:55 | PM.IMPN ---
Progress Note: A&P Assessment and Plan (1) Acute UTI: Code(s): N39.0 - Urinary tract infection, site not specified Status: Acute Assessment and Plan: IV abiotics continue to encourage fluids monitor intake and output (2) COVID-19: Code(s): U07.1 - COVID-19 Status: Acute Assessment and Plan: Monitor for pulmonary problems oxygen as indicated Remdesivir monitor labs (3) CHF (congestive heart failure): Code(s): I50.9 - Heart failure, unspecified Status: Acute Assessment and Plan: COntinue home medication monitor labs continue lasix (4) Altered mental status: Code(s): R41.82 - Altered mental status, unspecified Status: Acute Assessment and Plan: Stable Subjective Date/time seen: 10/12/22 08:55 Interval history: Mr. Cross is looking ok although still requiring oxygen at this time we will continue to wean down and plan for discharge in the morning. Patient states he feels sick and he is needing assistance with feeding at this time we will monitor for 1 more day given the amount of times patient return to the hospital . Exam Narrative: GENERAL: This is a well-nourished, well-developed patient, in no apparent distress. HEAD: normocephalic EYES: PERRL. Sclera clear/white. Vision is grossly intact. EARS: External ears normal, auditory canals clear and without drainage NOSE: External nose normal with no obvious nasal discharge, nares without redness, no rhinorrhea. THROAT: Mucous membranes moist, posterior pharynx clear. NECK: Neck supple, CARDIOVASCULAR: Regular rate and rhythm RESPIRATORY: diminished throughout GASTROINTESTINAL: Abdomen soft, non-tender, nondistended. Bowel sounds are active. SKIN: warm, intact with no suspicious lesions or rash, good texture and turgor. NEURO: awake, alert, self and place with occasional confusion EXTREMITIES: Normal range of motion. trace edema. No calf tenderness HENMT: Head: other (old bruise to occiput) Mouth: Yes Normal oral and palatal mucosa present Throat: posterior oropharynx abnormal Eyes: General: appearance normal, both eyes and all related structures Neck: Neck: normal visual inspection, full ROM, no lymphadenopathy and no meningeal signs Resp: Effort & Inspection: normal respiratory effort Auscultation: rales Objective Data Vital Signs Vital Signs: Vital Signs - 24 hr 10/11/22 15:29 10/11/22 15:20 10/12/22 00:00 Temperature 98.7 F 98.7 F Pulse Rate 50 L 50 L 84 Respiratory Rate 16 20 Blood Pressure 92/58 L 106/62 Pulse Oximetry 100 100 96 Oxygen Delivery Nasal Cannula Nasal Cannula Nasal Cannula Oxygen Flow Rate 2 2 2 Intake/Output Intake/Output: Intake & Output 10/09/22 10/10/22 10/11/22 10/12/22 23:59 23:59 23:59 23:59 Intake Total 150 1255 555 Output Total 750 200 Balance 150 505 355 Meds/Results Medications: Active Medications Generic Name Dose Route Start Last Admin Trade Name Freq PRN Reason Stop Dose Admin Acetaminophen 650 mg 10/10/22 17:32 10/11/22 17:08 Acetaminophen 325 Mg Tablet PO 650 mg Q4H PRN Administration Mild Pain (1-3) or Fever Hydrocodone Bitart/Acetaminophen 1 tab 10/10/22 17:32 10/11/22 06:59 Hydrocodone/Acetaminophen (*Crx) 5-325 Mg Tablet PO 1 tab Q6HR PRN Administration Pain Rated 7-10 Albuterol 2 puff 10/10/22 17:32 Albuterol Sulfate (*Sp) Inhaler INHALATION QIDRT PRN Shortness Of Breath Artificial Tears 1 drop 10/10/22 18:07 Artificial Tears Ophth Soln 15 Ml Bottle EACH EYE QID PRN Dry Eye(S) Calcium Carbonate 200 mg 10/10/22 18:07 Calcium Carbonate (Tums) 500 Mg (200 Mg Elemental) PO Q6H PRN Indigestion Cyanocobalamin 1,000 mcg 10/11/22 09:00 10/11/22 08:19 Cyanocobalamin 1,000 Mcg Tablet PO 1,000 mcg DAILY KYLE Administration Dexamethasone 6 mg 10/12/22 08:00 Dexamethasone 2 Mg Tablet
[2022-10-12] MEDS: DEXAMETHASONE 2 MG TABLET 6 MG PO (08:56)
[2022-10-12] MEDS: LOVASTATIN 20 MG TABLET 40 MG PO (08:56)
[2022-10-12 08:57] VITALS: PULSE 81
[2022-10-12] MEDS: NEOMYCIN/POLYMYXIN/BACITRACIN OINTMENT 15 GM TUBE 1 APPLIC TOPICAL (08:57)
[2022-10-12] MEDS: DIGOXIN TAB 125 MCG TABLET PO (08:57)
[2022-10-12] MEDS: TAMSULOSIN HCL 0.4 MG CAPSULE PO (08:57)
[2022-10-12] MEDS: VERAPAMIL HCL ER 120 MG TABLET PO (08:57)
[2022-10-12] MEDS: FUROSEMIDE INJ 40 MG/4 ML VIAL IV PUSH (08:58)
[2022-10-12] MEDS: POTASSIUM CHLORIDE 20 MEQ TABLET PO (08:58)
[2022-10-12] MEDS: ACETAMINOPHEN 325 MG TABLET 650 MG PO (09:01)
[2022-10-12] MEDS: CYANOCOBALAMIN 1,000 MCG TABLET 1000 MCG PO (09:02)
[2022-10-12] MEDS: REMDESIVIR 100 MG/NS 250 ML 100 MG/250 ML BAG 250 MG IVPB (11:04)
[2022-10-12] MEDS: SULFAMETHOXAZOLE/TRIMETHOPRIM 800/160 MG DS TABLET 1 TAB PO ×2 (12:54→20:33)
[2022-10-12 16:00] VITALS: BP 105/59; PULSE 70; RESP 16; TEMP 36.4; O2SAT 94
[2022-10-12] MEDS: WARFARIN (*PBKC) 2 MG TABLET PO (16:59)
[2022-10-12] MEDS: traZODone HCL 50 MG TABLET PO (20:33)
[2022-10-12] MEDS: LORazepam INJ (*CRX) 2 MG/ML VIAL 0.5 MG IV PUSH (20:33)
[2022-10-12 23:09] VITALS: BP 138/62; PULSE 65; RESP 18; TEMP 36.6; O2SAT 94
--- NOTE | 2022-10-13 01:08 | PC.NURSE ---
Pt incontinent of urine. Pt's depend and gown changed to clean ones. Call light w/in reach; side railsx3; bed alarm on; bed in lowest position; and located near nurses station for pt safety.
--- NOTE | 2022-10-13 03:35 | PC.NURSE ---
This RN entered pt's room to found he had spilled his urinal and soda while also being incontinent of urine. Gown, depend, and bed linens changed. Awaiting house keeping to mop floor. Call light w/in reach.
[2022-10-13 05:21] LABS: Alanine Aminotransferase 31 U/L (16-63); Estimated CRCL calculation 45 ml/min; Estimated Glomerular Filt Rate > 60
[2022-10-13 05:22] LABS: Potassium 4.1 mmol/L (3.5-5.1)
[2022-10-13 05:25] LABS: INR 1.3; Prothrombin Time 14.1 Seconds (9.50-12.10)
[2022-10-13] MEDS: LEVOTHYROXINE SODIUM 100 MCG TABLET PO (06:42)
[2022-10-13 08:00] VITALS: BP 144/70; PULSE 72; RESP 18; TEMP 36.9; O2SAT 96
--- NOTE | 2022-10-13 08:18 | PM.DS ---
DS: Admitting Diagnosis Discharge Date 10/13/2022 Admitting Diagnosis COVID. ALter mental status , Weakness , Uti DS: Discharge Diagnosis Discharge Diagnosis (1) Acute UTI: Code(s): N39.0 - Urinary tract infection, site not specified Status: Acute Assessment and Plan: IV abiotics continue to encourage fluids monitor intake and output (2) COVID-19: Code(s): U07.1 - COVID-19 Status: Acute Assessment and Plan: Monitor for pulmonary problems oxygen as indicated Remdesivir monitor labs (3) CHF (congestive heart failure): Code(s): I50.9 - Heart failure, unspecified Status: Acute Assessment and Plan: COntinue home medication monitor labs continue lasix (4) Altered mental status: Code(s): R41.82 - Altered mental status, unspecified Status: Acute Assessment and Plan: Stable DS: Summary Hospital Course Reason for hospitalization: COVID, UTI , Hypoxic, AMS Hospital Course: This 86-year-old that presents to the emergency room consistent with some altered mental status and was not eating and drinking and weak. Patient was seen in the emergency room found to be COVID positive had a urinary tract infection was febrile with temp of 102.6? and was requiring 3 L of oxygen. While here patient received IV fluids, IV antibiotics, breathing treatments, and IV steroids patient became more alert and oriented he came back to his normal state was weaned off of oxygen although he may require some at bedtime he has scant the skilled nursing. Patient's heart rate blood pressure and temperature are within normal limits pain it is very anxious to return back to the skilled nursing patient is alert and oriented able to eat and drink without any difficulty denies any shortness of breath patient's potassium on discharge is 4.1, sodium 135, BUN 22, creatinine 0.97, RBCs 3.36, WBCs 4.6, hemoglobin 11.2, hematocrit was 34.8, platelets of 281 at this time patient was discharged back to the skilled nursing he should remain on droplet isolation and still skilled nursing policy Time Spent with Patient Time attestation: Total time spent providing and/or coordinating discharge services: Exam Narrative: GENERAL: This is a well-nourished, well-developed patient, in no apparent distress. HEAD: normocephalic EYES: PERRL. Sclera clear/white. Vision is grossly intact. EARS: External ears normal, auditory canals clear and without drainage NOSE: External nose normal with no obvious nasal discharge, nares without redness, no rhinorrhea. THROAT: Mucous membranes moist, posterior pharynx clear. NECK: Neck supple, CARDIOVASCULAR: Regular rate and rhythm RESPIRATORY: diminished throughout GASTROINTESTINAL: Abdomen soft, non-tender, nondistended. Bowel sounds are active. SKIN: warm, intact with no suspicious lesions or rash, good texture and turgor. NEURO: awake, alert, self and place with occasional confusion EXTREMITIES: Normal range of motion. trace edema. No calf tenderness Neuro: General: no meningeal signs, confusion and other (pt not able to follwo commands to do good neuro exam. ) DS: Data Data Completed and Pending Labs on day of discharge: Labs from last 24 hours 10/13/22 05:03 PT 14.1 H INR 1.3 Potassium 4.1 Creatinine 0.97 Estim Creat Clear Calc 45 Estimated GFR > 60 ALT 31 Preliminary micro results at discharge 10/10/22 16:18 Blood Culture - Preliminary Blood 10/10/22 16:18 Blood Culture - Preliminary Blood Discharge Plan Discharge Attending physician on discharge: Juan M Crocker Consulting providers: Lia Candelario; Lamar Block; Mando Prater; Caleb Ramirez Discharging Clinician: Lamar Block Anticipated Discharge Date/Time: 10/13/22 08:14 Patient Disposition: SNF Activity: may shower and no driving Diet: diabetic Wound Care Instructions: follow printed instructions Dis
[2022-10-13] MEDS: LOVASTATIN 20 MG TABLET 40 MG PO (09:16)
[2022-10-13] MEDS: DEXAMETHASONE 2 MG TABLET 6 MG PO (09:16)
[2022-10-13] MEDS: SULFAMETHOXAZOLE/TRIMETHOPRIM 800/160 MG DS TABLET 1 TAB PO (09:16)
[2022-10-13 09:17] VITALS: PULSE 72
[2022-10-13] MEDS: VERAPAMIL HCL ER 120 MG TABLET PO (09:17)
[2022-10-13] MEDS: DIGOXIN TAB 125 MCG TABLET PO (09:17)
[2022-10-13] MEDS: TAMSULOSIN HCL 0.4 MG CAPSULE PO (09:17)
[2022-10-13] MEDS: CYANOCOBALAMIN 1,000 MCG TABLET 1000 MCG PO (09:17)
[2022-10-13] MEDS: FUROSEMIDE INJ 40 MG/4 ML VIAL IV PUSH (09:18)
--- NOTE | 2022-10-13 10:00 | PC.NURSE ---
Report given to BEATA Lainez at [facility]. They will be sending someone for pickup around noon.
--- NOTE | 2022-10-13 12:15 | PC.NURSE ---
Pt picked up by long term staff and transported out via wheelchair. Pt was wrapped in blankets due to not having personal clothing.
--- NOTE | 2022-10-14 14:38 | PC.NURSE ---
detention nurse states they received and understood the discharge instructions.
== END 2022-10-13 12:18 | DRG 178 ==
LOC: CHSED 17:34 → CHS2ND 18:06
PROVIDERS: Nurse Practitioner; Admitting Provider Internal Medicine; Emergency Provider Emergency Medicine; PCP Internal Medicine; Visit Provider Internal Medicine
DX: U07.1 COVID-19 (principal); I48.20 Chronic atrial fibrillation, unspecified; N39.0 Urinary tract infection, site not specified; I11.0 Hypertensive heart disease with heart failure; I50.9 Heart failure, unspecified; R41.82 Altered mental status, unspecified; E78.5 Hyperlipidemia, unspecified; N40.0 Benign prostatic hyperplasia without lower urinary tract symptoms; Z95.2 Presence of prosthetic heart valve; Z79.01 Long term (current) use of anticoagulants
CPT/HCPCS: 36415; 70450; 71045; 80053; 80162; 81001; 82565; 83605; 83880; 84132; 84443; 84460; 85025; 85027; 85610; 85730; 86140; 87040; 87077; 87086; 87088; 87186; 87636; 93005; 94640; 96365; 96367; 96368; 96375; 96376; 97161; 97530; 99285; A9270; G0378; J0131; J0248; J0696; J1940; J2060; J8540

== ENCOUNTER 2022-10-18 00:16 | Emergency (ER) | payer MEDICARE, BC, SELFPAY ==
--- NOTE | ~2022-10-18 | CT_ITS ---
Non-contrast Head CT History: Status post fall COMPARISON: 10/10/2022 Technique: Axial non-contrast imaging of the brain was performed. Dose reduction technique was used on this scan by utilizing automated exposure control and iterative reconstruction technique. The dose -length product (DLP) was 681.00 mGy-cm. Findings: There is no evidence of intracranial hemorrhage, mass lesion, or acute infarct. Brain par enchyma appears normal. The ventricles and subarachnoid spaces are normal in size. The calvarium ap pears normal. The visualized paranasal sinuses and mastoid air cells are clear. There is mild soft t issue swelling at the high left parietal scalp. Impression: No intracranial abnormality seen. Mild soft tissue swelling at the high left parietal scalp. Reviewed, dictated and finalized at [facility]. Impression: No intracranial abnormality seen. Mild soft tissue swelling at the high left parietal scalp.
--- NOTE | ~2022-10-18 | CT_ITS ---
Noncontrast CT scan of the cervical spine Technique: Multiple contiguous axial [address] images of the cervical spine were obtained and rec onstructed in 2D sagittal and coronal planes on the acquisition scanner. Dose reduction technique was used on this scan by utilizing automated exposure control, adjustment of the mA and/or kV according to patient size. Clinical History: Pain COMPARISON: 09/25/2022 Findings: No fracture identified. Minimal grade 1 anterolisthesis of C4 over C5 noted. There is moder ate degenerative disc narrowing at C5-C6, C6-C7, and at C3-C4. Mild facet arthropathy and mild bilate ral neural foraminal narrowing at multiple levels is unchanged from recent prior exam. No prevertebra l soft tissue swelling. Impression: No fracture. Stable osseous alignment as compared to prior exam. Stable degenerative changes. Reviewed, dictated and finalized at [facility]. Impression: No fracture. Stable osseous alignment as compared to prior exam. Stable degenerative changes .
[2022-10-18 00:32] VITALS: BP 120/60; PULSE 80; RESP 20; TEMP 36.6; O2SAT 94
--- NOTE | 2022-10-18 00:33 | ED.FALL ---
HPI - Fall General Chief Complaint: Fall Stated Complaint: fall History of Present Illness HPI Narrative: This is an 86-year-old male with history of A-fib on Coumadin, brought in by EMS from his halfway after a fall. Received notification from the patient's halfway, the patient was found down with a laceration to the back of his head. He is A&O x1 at baseline and appears to be at his baseline. Related Data Home Medications Medication Instructions Recorded Confirmed lovastatin 40 mg tablet 40 mg PO DAILY 01/25/22 10/18/22 tamsulosin 0.4 mg capsule (Flomax) 0.4 mg PO DAILY 01/25/22 10/18/22 warfarin 5 mg tablet 2 mg PO DAILY 01/25/22 10/18/22 diclofenac sodium 1 % topical gel See Rx Instructions .Route 09/08/22 10/18/22 .COMPLEX PRN Pain levothyroxine 100 mcg tablet 100 mcg PO DAILY 09/08/22 10/18/22 potassium chloride 20 mEq 20 meq PO DAILY 09/08/22 10/18/22 tablet,extended release(part/cryst) (Klor-Con M) digoxin 125 mcg (0.125 mg) tablet 125 mcg PO DAILY 09/25/22 10/18/22 verapamil 240 mg tablet,extended 120 mg PO DAILY 09/26/22 10/18/22 release cyanocobalamin (vitamin B-12) 1,000 mcg PO DAILY 10/10/22 10/18/22 1,000 mcg tablet docusate sodium 100 mg capsule 100 mg PO DAILY PRN Constipation 10/10/22 10/18/22 (Colace) furosemide 40 mg tablet 20 mg PO DAILY 10/10/22 10/18/22 neomycin-bacitracn Zn-polymyxn 3.5 1 applic topical DAILY 10/10/22 10/18/22 mg-400 unit-5,000 unit top oint pkt (Triple Antibiotic) Allergies Allergy/AdvReac Type Severity Reaction Status Date / Time No Known Allergies Allergy Mild Verified 09/08/22 11:02 Review of Systems Review of Systems: Unable to obtain review of systems due to baseline altered mental status PMFSH Past Medical History Medical History Atrial fibrillation BPH (benign prostatic hyperplasia) History of atrial fibrillation History of hyperlipidemia History of hypertension Hyperlipidemia Surgical History Surgical History H/O arthroscopic knee surgery H/O hernia repair Heart valve replaced History of repair of right hip joint Hx of cholecystectomy S/P tonsillectomy and adenoidectomy Family History Family History Mother Heart disease Father Alcohol abuse by father Sibling Acute myocardial infarction Other Hypertension Social History Social History Social History: The patient lives with his who has dementia and he has been caring for her. They have had 3 children. He is retired from [employer]. Code status full code Smoking status: Unknown if ever smoked Second hand tobacco smoke exposure: No Alcohol intake: unknown Substance use: unknown Substance use type: does not use Lack of Transportation: No Lack of Food: Never True Current Housing: I Have Housing Concerned About Future Housing: No Difficulty Paying Gas/Electric Bills: No Difficulty Paying for Meds: No Currently Unemployed: No Education: Grade School Difficulty w/ Childcare or Family Care: No Living arrangements: with family Exam Narrative: GENERAL: Well-developed, well-nourished, and in no acute distress. HEAD: Normocephalic. A triangular shaped skin tear, 1 cm across is noted to the posterior scalp with a underlying hematoma. There is no active bleeding noted. EYES: PERRLA and EOMI. ENT: Nares clear, no rhinorrhea or epistaxis. Mucous membranes moist. Oropharynx without tonsillar hypertrophy exudate or other lesions. NECK: Supple. No adenopathy or masses. No carotid bruits or JVD. No midline spine tenderness to palpation, no step-off or crepitus. CHEST: Clear to auscultation. No respiratory distress. No wheezes rales or rhonchi. Well-healed midline surgical scar consistent with C
[2022-10-18] MEDS: TETANUS,DIPHTHERIA,AC PERTUSSIS ADULT 0.5 ML (ADACEL) IM (01:54)
[2022-10-18 01:57] VITALS: BP 100/60; PULSE 88; RESP 20; TEMP 37.2; O2SAT 94
== END 2022-10-18 02:12 ==
PROVIDERS: Emergency Provider Preventive Medicine Aerospace Medicine; PCP Internal Medicine
DX: S01.01XA Laceration without foreign body of scalp, initial encounter (principal); W19.XXXA Unspecified fall, initial encounter; I48.91 Unspecified atrial fibrillation; I10 Essential (primary) hypertension; E78.5 Hyperlipidemia, unspecified; N40.0 Benign prostatic hyperplasia without lower urinary tract symptoms; Z79.51 Long term (current) use of inhaled steroids; Z79.891 Long term (current) use of opiate analgesic; Z79.01 Long term (current) use of anticoagulants; Z23 Encounter for immunization
CPT/HCPCS: 70450; 72125; 90471; 90715; 99284; L0150

== ENCOUNTER 2022-11-03 12:40 | Emergency (ER) | payer OTHER, MEDICARE, BC, SELFPAY ==
--- NOTE | ~2022-11-03 | CT_ITS ---
Noncontrast CT scan of the cervical spine Technique: Multiple contiguous axial [address] images of the cervical spine were obtained and rec onstructed in 2D sagittal and coronal planes on the acquisition scanner. Dose reduction technique was used on this scan by utilizing automated exposure control, adjustment of the mA and/or kV according to patient size. Clinical History: Pain Findings: No fractures or dislocations. There is advanced degenerative disc narrowing at C3-C4, C5-C 6, and C6-C7. There is moderate degenerative change at the articulation of the odontoid process with the anterior arch of C1. There is probable minimal left neural foraminal narrowing at C2-C3. There is probable minimal bilateral neural foraminal narrowing at C3-C4. There is probable minimal right neur al foraminal narrowing at C4-C5. There is bilateral neural foraminal narrowing at C5-C6. There are sc attered mild facet joint degenerative changes. No prevertebral soft tissue swelling. Impression: No fracture or subluxation of the cervical spine. Mild degenerative spondylosis, as above. Reviewed, dictated and finalized at [facility]. Impression: No fracture or subluxation of the cervical spine. Mild degenerative spondylosis, as above.
--- NOTE | ~2022-11-03 | CT_ITS ---
CT head without contrast Indication: Status post fall COMPARISON: 10/18/2022 Technique: Serial scans were obtained through the brain without the administration of contrast. Dose reduction technique was used on this scan by utilizing automated exposure control and iterative recon struction technique. The dose-length product (DLP) was 756.67 mGy-cm. Findings: There is no evidence of intracranial hemorrhage, mass lesion, or acute infarct. The ventri cles and subarachnoid spaces are dilated, consistent with mild atrophy. Low attenuation regions are seen within the periventricular white matter bilaterally, likely representing changes from chronic mi crovascular ischemic disease. There is no evidence of edema, mass effect or midline shift. There is probable chronic right maxillary sinus disease. The remaining visualized paranasal sinuses and mastoi d air cells are clear. Impression: No intracranial hemorrhage, mass, or acute infarct. Atrophy and chronic white matter changes, as above. Reviewed, dictated and finalized at [facility]. Impression: No intracranial hemorrhage, mass, or acute infarct. Atrophy and chronic white matter changes, as above.
[2022-11-03 12:53] VITALS: BP 122/76; PULSE 86; TEMP 36.7; O2SAT 98
--- NOTE | 2022-11-03 13:32 | ED.HEATRA ---
HPI - Head Injury General Chief complaint: Head Injury Stated complaint: head injury Time Seen by Provider: 11/03/22 12:49 Source: patient, family and EMS Mode of arrival: EMS Limitations: physical limitation History of Present Illness HPI Narrative: this is 86-year-old male that presents from [facility] after he was sustained a fall earlier this morning causing laceration to the left side of his forehead and lateral aspect of his left eye well approximated not gaping that was bleeding it was dressed and wrapped from the prison. The patient was in a cervical collar on arrival to the emergency department, the patient is a DNR and hospice patient. patient is alert x1 which is his baseline. No other injuries noted patient opens his eyes and responds at a baseline. MD Complaint: head injury Onset (ago): hour(s) Arrival Conditions: C-spine immobilization present Mechanism of Injury: fall Loss of Consciousness: no Location of injury: frontal and face Severity: mild Related Data Home Medications Medication Instructions Recorded Confirmed tamsulosin 0.4 mg capsule (Flomax) 0.4 mg PO DAILY 01/25/22 11/03/22 diclofenac sodium 1 % topical gel See Rx Instructions .Route 09/08/22 11/03/22 .COMPLEX PRN Pain levothyroxine 100 mcg tablet 100 mcg PO DAILY 09/08/22 11/03/22 potassium chloride 20 mEq 20 meq PO DAILY 09/08/22 11/03/22 tablet,extended release(part/cryst) (Klor-Con M) digoxin 125 mcg (0.125 mg) tablet 125 mcg PO DAILY 09/25/22 11/03/22 verapamil 240 mg tablet,extended 120 mg PO DAILY 09/26/22 10/18/22 release cyanocobalamin (vitamin B-12) 1,000 mcg PO DAILY 10/10/22 11/03/22 1,000 mcg tablet docusate sodium 100 mg capsule 100 mg PO DAILY PRN Constipation 10/10/22 11/03/22 (Colace) furosemide 40 mg tablet 20 mg PO DAILY 10/10/22 11/03/22 neomycin-bacitracn Zn-polymyxn 3.5 1 applic topical DAILY 10/10/22 11/03/22 mg-400 unit-5,000 unit top oint pkt (Triple Antibiotic) aspirin 81 mg chewable tablet 81 mg PO DAILY 11/03/22 11/03/22 lorazepam 0.5 mg tablet 0.5 mg PO DAILY PRN Anxiety 11/03/22 11/03/22 Allergies Allergy/AdvReac Type Severity Reaction Status Date / Time No Known Allergies Allergy Mild Verified 09/08/22 11:02 Review of Systems Review of Systems: All systems reviewed & are unremarkable except as noted in HPI and below PMFSH Past Medical History Medical History Atrial fibrillation BPH (benign prostatic hyperplasia) History of atrial fibrillation History of hyperlipidemia History of hypertension Hyperlipidemia Surgical History Surgical History H/O arthroscopic knee surgery H/O hernia repair Heart valve replaced History of repair of right hip joint Hx of cholecystectomy S/P tonsillectomy and adenoidectomy Family History Family History Mother Heart disease Father Alcohol abuse by father Sibling Acute myocardial infarction Other Hypertension Social History Social History Social History: The patient lives with his who has dementia and he has been caring for her. They have had 3 children. He is retired from [employer]. Code status full code Smoking status: Unknown if ever smoked Second hand tobacco smoke exposure: No Alcohol intake: unknown Substance use: unknown Substance use type: does not use Lack of Transportation: No Lack of Food: Never True Current Housing: I Have Housing Concerned About Future Housing: No Difficulty Paying Gas/Electric Bills: No Difficulty Paying for Meds: No Currently Unemployed: No Education: Grade School Difficulty w/ Childcare or Family Care: No Living arrangements: with family Exam Const: General: healthy appearing Nutritional Appearance: well nourished
[2022-11-03 13:37] VITALS: BP 166/77; PULSE 88; RESP 20; TEMP 36.6; O2SAT 100
== END 2022-11-03 13:53 ==
PROVIDERS: Emergency Provider Emergency Medicine; PCP Internal Medicine
DX: S01.81XA Laceration without foreign body of other part of head, initial encounter (principal); I48.91 Unspecified atrial fibrillation; E78.5 Hyperlipidemia, unspecified; I10 Essential (primary) hypertension; W19.XXXA Unspecified fall, initial encounter
CPT/HCPCS: 70450; 72125; 99284

== ENCOUNTER 2022-11-12 06:45 | Outpatient (NON) | payer OTHER, MEDICARE, BC, SELFPAY ==
[2022-11-12 06:54] LABS: Add Urine Microscopic? NO; Appearance Urine Clear (Clear); Bilirubin Urine Negative (Negative); Blood Urine Negative (Negative); Color Urine Yellow (Yellow); Glucose Urine UA Negative (Negative); Ketones Urine Negative (Negative); Leukocyte Esterase Ur Negative (Negative); Nitrate Urine Negative (Negative); Protein Urine Negative (Negative); Urobilinogen Urine 0.2 mg/dL (0.2-1.0); pH Urine 6.5 (5.0-8.0)
== END 2022-11-12 06:46 | disposition home or self-care (01) ==
LOC: CHSLAB 06:47
PROVIDERS: PCP Internal Medicine; Visit Provider Internal Medicine
DX: R82.90 Unspecified abnormal findings in urine (principal)
CPT/HCPCS: 81003; 87086; 87088

== ENCOUNTER 2022-12-18 09:58 | Emergency (ER) | payer OTHER, MEDICARE, BC, SELFPAY ==
--- NOTE | ~2022-12-18 | XR_ITS ---
EXAMINATION: XR shoulder RT min 2V INDICATION: Right shoulder pain TECHNIQUE: Four views of the right shoulder are submitted. COMPARISON: None FINDINGS: Normal alignment. No fracture. There is mild osteoarthritis of the glenohumeral and acromio clavicular joints. Soft tissues are unremarkable. IMPRESSION: 1. No acute osseous abnormality. Reviewed, dictated and finalized at [facility].
--- NOTE | ~2022-12-18 | XR_ITS ---
EXAMINATION: XR hip RT min 2V DATE: 12/18/2022 10:51 INDICATION: Right hip pain TECHNIQUE: Two views of right hip were obtained. COMPARISON: 07/25/2022 FINDINGS: There has been interval orthopedic fixation of the previously described subcapital right fe moral neck fracture. No acute fracture is identified. There is mild osteoarthritis of the right hip. Calcified atherosclerosis is noted. There are phleboliths of the pelvis. IMPRESSION: 1. No acute osseous abnormality. Reviewed, dictated and finalized at [facility].
[2022-12-18 09:58] VITALS: BP 131/84; PULSE 86; RESP 16; TEMP 36.2; O2SAT 98
--- NOTE | 2022-12-18 10:16 | ED.FALL ---
HPI - Fall General Chief Complaint: Fall Stated Complaint: fall; right hip and right shoulder pain Time Seen by Provider: 12/18/22 10:07 Source: patient, EMS and RN notes reviewed Mode of arrival: ambulatory Limitations: no limitations History of Present Illness MD complaint: fall Onset (ago): minute(s) (30) Fall from: standing Fall witnessed: yes, by living facility staff Place fall occurred: long-term/SNF Loss of consciousness: none Symptoms prior to fall: none Context: tripped/slipped Location of injury - extremities: Right: shoulder and thigh (hip) Severity: moderate Quality: dull and aching Associated symptoms (after fall): denies Related Data Home Medications Medication Instructions Recorded Confirmed tamsulosin 0.4 mg capsule (Flomax) 0.4 mg PO DAILY 01/25/22 12/18/22 diclofenac sodium 1 % topical gel See Rx Instructions .Route 09/08/22 12/18/22 .COMPLEX PRN Pain levothyroxine 100 mcg tablet 100 mcg PO DAILY 09/08/22 12/18/22 potassium chloride 20 mEq 20 meq PO DAILY 09/08/22 12/18/22 tablet,extended release(part/cryst) (Klor-Con M) digoxin 125 mcg (0.125 mg) tablet 125 mcg PO DAILY 09/25/22 12/18/22 cyanocobalamin (vitamin B-12) 1,000 mcg PO DAILY 10/10/22 12/18/22 1,000 mcg tablet docusate sodium 100 mg capsule 100 mg PO DAILY PRN Constipation 10/10/22 12/18/22 (Colace) furosemide 40 mg tablet 20 mg PO DAILY 10/10/22 12/18/22 aspirin 81 mg chewable tablet 81 mg PO DAILY 11/03/22 12/18/22 lorazepam 0.5 mg tablet 0.5 mg PO DAILY PRN Anxiety 11/03/22 12/18/22 morphine concentrate 100 mg/5 mL mg 12/18/22 (20 mg/mL) oral solution triamcinolone acetonide 0.025 % 1 applic topical DAILY 12/18/22 12/18/22 topical cream Allergies Allergy/AdvReac Type Severity Reaction Status Date / Time No Known Allergies Allergy Mild Verified 12/18/22 10:14 Review of Systems Review of Systems: All systems reviewed & are unremarkable except as noted in HPI and below PMFSH Past Medical History Medical History Atrial fibrillation BPH (benign prostatic hyperplasia) History of atrial fibrillation History of hyperlipidemia History of hypertension Hyperlipidemia Surgical History Surgical History H/O arthroscopic knee surgery H/O hernia repair Heart valve replaced History of repair of right hip joint Hx of cholecystectomy S/P tonsillectomy and adenoidectomy Family History Family History Mother Heart disease Father Alcohol abuse by father Sibling Acute myocardial infarction Other Hypertension Social History Social History Social History: The patient lives with his who has dementia and he has been caring for her. They have had 3 children. He is retired from [employer]. Code status full code Smoking status: Unknown if ever smoked Second hand tobacco smoke exposure: No Alcohol intake: unknown Substance use: unknown Substance use type: does not use Lack of Transportation: No Lack of Food: Never True Current Housing: I Have Housing Concerned About Future Housing: No Difficulty Paying Gas/Electric Bills: No Difficulty Paying for Meds: No Currently Unemployed: No Education: Grade School Difficulty w/ Childcare or Family Care: No Living arrangements: with family Exam Const: General: no acute distress, alert and ill appearing chronically Nutritional Appearance: thin Orientation/consciousness: patient oriented x3 Limitations: no limitations HENMT: Head: normal to inspection Ears: external ears normal Face/Nose/Sinus: Normal external nose present Face and sinus: normal facial exam Mouth: Yes moist mucous membranes Eyes: Conjunctivae: conjunctivae normal Pupils: Equal, round and reactive pupils present EOM: EOMs intact bilaterally
[2022-12-18 10:23] VITALS: BP 131/84; PULSE 86; RESP 16; TEMP 36.2; O2SAT 98
[2022-12-18 11:15] VITALS: BP 133/90; PULSE 84; RESP 16; O2SAT 100
== END 2022-12-18 11:23 ==
PROVIDERS: Emergency Provider Emergency Medicine; PCP Internal Medicine
DX: S40.011A Contusion of right shoulder, initial encounter (principal); S70.01XA Contusion of right hip, initial encounter; I48.91 Unspecified atrial fibrillation; E78.5 Hyperlipidemia, unspecified; I10 Essential (primary) hypertension; Z79.82 Long term (current) use of aspirin; W01.0XXA Fall on same level from slipping, tripping and stumbling without subsequent striking against object, initial encounter
CPT/HCPCS: 73030; 73502; 99284

== ENCOUNTER 2022-12-24 09:34 | Outpatient (NON) | payer OTHER, MEDICARE, BC, SELFPAY ==
[2022-12-24 09:42] LABS: Appearance Urine Slightly Cloudy (Clear); Bilirubin Urine Negative (Negative); Blood Urine Trace-Intact (Negative); Glucose Urine UA Negative (Negative); Ketones Urine Negative (Negative); Leukocyte Esterase Ur 2+ (Negative); Nitrate Urine Positive (Negative); Protein Urine Trace (Negative); Specific Grav Ur 1.025 (1.010-1.020); pH Urine 5.5 (5.0-8.0)
[2022-12-24 09:47] LABS: Add Urine Microscopic? YES; Bacteria Urine 3+ /hpf; Color Urine Amber (Yellow); RBC Urine 0-2 /hpf (0-2)
== END 2022-12-24 09:35 | disposition home or self-care (01) ==
LOC: CHSLAB 09:36
PROVIDERS: PCP Family Medicine; Visit Provider Family Medicine
DX: R50.9 Fever, unspecified (principal)
CPT/HCPCS: 81001; 87086; 87088

== ENCOUNTER 2023-01-31 06:15 | Outpatient (NON) | payer OTHER, MEDICARE, BC, SELFPAY ==
[2023-01-31 07:09] LABS: Bilirubin Urine Negative (Negative); Blood Urine 1+ (Negative); Color Urine Yellow (Yellow); Glucose Urine UA Negative (Negative); Ketones Urine Negative (Negative); Leukocyte Esterase Ur 3+ (Negative); Nitrate Urine Negative (Negative); Protein Urine Negative (Negative); Specific Grav Ur <= 1.005 (1.010-1.020); Urobilinogen Urine 0.2 mg/dL (0.2-1.0)
[2023-01-31 07:14] LABS: Add Urine Microscopic? YES; Appearance Urine Cloudy (Clear)
[2023-01-31 07:15] LABS: Bacteria Urine 2+ /hpf; WBC Urine 51-100 /hpf (0-3)
== END 2023-01-31 06:16 | disposition home or self-care (01) ==
LOC: CHSLAB 06:17
PROVIDERS: Visit Provider Internal Medicine
DX: N39.0 Urinary tract infection, site not specified (principal)
CPT/HCPCS: 81001; 87086; 87088

== ENCOUNTER 2023-03-07 19:44 | Emergency (ER) | payer MEDICARE, BC, SELFPAY ==
--- NOTE | ~2023-03-07 | CT_ITS ---
EXAMINATION: CT brain wo con DATE: 03/07/2023 20:17 INDICATION: Fall. Forehead laceration. TECHNIQUE: Computed tomography (CT) of the head was performed without intravenous contrast. The mA wa s adjusted according to patient size. Iterative reconstruction technique was employed. Exam dose: 68 1.00 mGy-cm total exam DLP. COMPARISON: 11/03/2022 CT brain FINDINGS: Left periorbital and frontal soft tissue swelling and minimal subcutaneous emphysema. Small subacute to chronic right parietal subdural hematoma and suggestion of a very slight subacute o r chronic left parietal subdural hematoma. No intracranial mass lesion or hemorrhage is noted otherwise. No midline shift or mass effect effect. Bilateral vertebral artery and bilateral carotid siphon and supraclinoid internal carotid artery calc ifications. There is nonspecific diminished attenuation of the cerebral white matter, likely due to chronic small vessel ischemic changes. Moderate cerebral and cerebellar atrophy, not unusual for patient age. Prominent soft tissue thickening and calcification within the right maxillary sinus. There is soft ti ssue thickening of the right lower frontal sinus and anterior right ethmoids. The mastoid air cells are well-developed and aerated. No skull fracture or bone destruction is detected. IMPRESSION: Small right and slight left subacute to chronic parietal subdural hematomas are suggeste d Left periorbital and frontal soft tissue swelling and slight subcutaneous emphysema; no skull fractur e is detected Cerebral atherosclerosis and chronic small vessel ischemic changes of the cerebral white matter Reviewed, dictated and finalized at [facility]. Reviewed, dictated and finalized at [facility]. IMPRESSION: Small right and slight left subacute to chronic parietal subdural hematomas are suggested Left periorbital and frontal soft tissue swelling and slight subcutaneous emphy sema; no skull fracture is detected Cerebral atherosclerosis and chronic small vessel ischemic changes of the cereb ral white matter
--- NOTE | ~2023-03-07 | CT_ITS ---
EXAMINATION: CT cervical spine wo con DATE: 03/07/2023 20:17 INDICATION: Fall. Forehead laceration. TECHNIQUE: Computed tomography (CT) of the cervical spine was performed without intravenous contrast. Automated exposure control and iterative reconstruction technique were employed. Exam dose: 184.50 mGy-cm total exam DLP. COMPARISON: 11/03/2022 CT cervical spine FINDINGS: There is opacification of a scattered minority of bilateral mastoid air cells. Multilevel severe degenerative disc disease including particular C3-4, C5-6 and C6-7, with associated minimal retrolisthesis at these levels. There is minimal anterolisthesis at C4-5 due to prominent degenerative change in particular at the C4 -5 apophyseal joints bilaterally. There is prominent uncovertebral joint spurring as well, especially at C3-4, C5-6 and C6-7. No fracture or dislocation or locked facet or prevertebral soft tissue swelling is detected.. Likely chronic interstitial fibrotic changes are noted in the upper included lung zones. IMPRESSION: Prominent cervical spondylosis; no fracture or dislocation or locked facet Reviewed, dictated and finalized at [facility] Reviewed, dictated and finalized at [facility]. IMPRESSION: Prominent cervical spondylosis; no fracture or dislocation or lock ed facet
--- NOTE | 2023-03-07 19:47 | ED.FALL ---
HPI - Fall General Chief Complaint: Fall Stated Complaint: Lac to forehead Time Seen by Provider: 03/07/23 19:46 Source: family ( Daughter works at the [employer]), EMS and RN notes reviewed Mode of arrival: EMS Limitations: physical limitation History of Present Illness HPI Narrative: staff says that he and a strapped himself from the wheelchair he was sitting in and lean forward falling forward into or rail. complaint: fall Onset (ago): minute(s) (20) Fall from: wheelchair Fall witnessed: yes, by living facility staff Place fall occurred: [facility]/SNF Loss of consciousness: none Prolonged down time: no Symptoms prior to fall: none Context: history of frequent falls and other ( Unbuckled himself in the wheelchair and hit a rail) Location of injury: face ( laceration above left eye) Severity: mild Quality: dull and aching Associated symptoms (after fall): denies Related Data Home Medications Medication Instructions Recorded Confirmed tamsulosin 0.4 mg capsule (Flomax) 0.4 mg PO DAILY 01/25/22 12/18/22 diclofenac sodium 1 % topical gel See Rx Instructions .Route 09/08/22 12/18/22 .COMPLEX PRN Pain levothyroxine 100 mcg tablet 100 mcg PO DAILY 09/08/22 12/18/22 potassium chloride 20 mEq 20 meq PO DAILY 09/08/22 12/18/22 tablet,extended release(part/cryst) (Klor-Con M) digoxin 125 mcg (0.125 mg) tablet 125 mcg PO DAILY 09/25/22 12/18/22 cyanocobalamin (vitamin B-12) 1,000 mcg PO DAILY 10/10/22 12/18/22 1,000 mcg tablet docusate sodium 100 mg capsule 100 mg PO DAILY PRN Constipation 10/10/22 12/18/22 (Colace) furosemide 40 mg tablet 20 mg PO DAILY 10/10/22 12/18/22 aspirin 81 mg chewable tablet 81 mg PO DAILY 11/03/22 12/18/22 lorazepam 0.5 mg tablet 0.5 mg PO DAILY PRN Anxiety 11/03/22 12/18/22 morphine concentrate 100 mg/5 mL mg 12/18/22 (20 mg/mL) oral solution triamcinolone acetonide 0.025 % 1 applic topical DAILY 12/18/22 12/18/22 topical cream Allergies Allergy/AdvReac Type Severity Reaction Status Date / Time No Known Allergies Allergy Mild Verified 03/07/23 21:00 Review of Systems Review of Systems: ROS unobtainable: Yes unobtainable due to mental status PMFSH Past Medical History Medical History Atrial fibrillation BPH (benign prostatic hyperplasia) History of atrial fibrillation History of hyperlipidemia History of hypertension Hyperlipidemia Surgical History Surgical History H/O arthroscopic knee surgery H/O hernia repair Heart valve replaced History of repair of right hip joint Hx of cholecystectomy S/P tonsillectomy and adenoidectomy Family History Family History Mother Heart disease Father Alcohol abuse by father Sibling Acute myocardial infarction Other Hypertension Social History Social History Social History: The patient lives with his who has dementia and he has been caring for her. They have had 3 children. He is retired from [employer]. Code status full code Smoking status: Unknown if ever smoked Second hand tobacco smoke exposure: No Alcohol intake: unknown Substance use: unknown Substance use type: does not use Lack of Transportation: No Lack of Food: Never True Current Housing: I Have Housing Concerned About Future Housing: No Difficulty Paying Gas/Electric Bills: No Difficulty Paying for Meds: No Currently Unemployed: No Education: Grade School Difficulty w/ Childcare or Family Care: No Living arrangements: with family Exam Const: General: healthy appearing, no acute distress and alert Nutritional Appearance: well nourished and thin Orientation/consciousness: patient oriented x3 Limitations: no limitations HENMT: Head: normal to inspection Ears: external ears normal Fac
[2023-03-07 19:50] VITALS: BP 103/71; PULSE 96; RESP 18; TEMP 36.9; O2SAT 95
[2023-03-07] MEDS: LIDO 1%/EPINEPHRINE 1:100,000 20 ML VIAL 10 ML INFILTRATE (20:30)
--- NOTE | 2023-03-07 20:51 | PC.NURSE ---
Dr. Hall speaking with patient daughter Caroline on telephone at this time, updating on patient status and results of CT scan.
== END 2023-03-07 21:17 ==
PROVIDERS: Emergency Provider Emergency Medicine; PCP Family Medicine
DX: S06.5XAA Traumatic subdural hemorrhage with loss of consciousness status unknown, initial encounter (principal); S01.81XA Laceration without foreign body of other part of head, initial encounter; I48.91 Unspecified atrial fibrillation; E78.5 Hyperlipidemia, unspecified; I10 Essential (primary) hypertension; W05.0XXA Fall from non-moving wheelchair, initial encounter; Y92.099 Unspecified place in other non-institutional residence as the place of occurrence of the external cause
CPT/HCPCS: 12013; 70450; 72125; 99284

== ENCOUNTER 2023-04-18 06:18 | Outpatient (NON) | payer OTHER, SELFPAY ==
[2023-04-18 07:20] LABS: Free T4 Free Thyroxine 0.87 ng/dL (0.76-1.46)
== END 2023-04-18 06:19 | disposition home or self-care (01) ==
LOC: CHSLAB 06:20
PROVIDERS: Visit Provider Internal Medicine
DX: E03.9 Hypothyroidism, unspecified (principal)
CPT/HCPCS: 36415; 84439; 84443

== ENCOUNTER 2023-05-28 22:46 | Emergency (ER) | payer MEDICARE, BC, SELFPAY ==
--- NOTE | ~2023-05-28 | CT_ITS ---
CT head without contrast Indication: Status post fall COMPARISON: 03/07/2023 Technique: Serial scans were obtained through the brain without the administration of contrast. Dose reduction technique was used on this scan by utilizing automated exposure control and iterative recon struction technique. The dose-length product (DLP) was 1286.33 mGy-cm. Findings: There is a very small acute subdural hematoma at the posterior left cerebral convexity (axi al images 25-28).. The ventricles and subarachnoid spaces are dilated, consistent with mild atrophy. Low attenuation regions are seen within the periventricular white matter bilaterally, likely repres enting changes from chronic microvascular ischemic disease. There is no evidence of edema, mass effe ct or midline shift. There is chronic right maxillary sinus disease. The remaining visualized paranas al sinuses and mastoid air cells are clear. Impression: Very small acute subdural hematoma at the posterior left cerebral convexity, as detailed above. Atrophy and chronic white matter changes, as above. Chronic right maxillary sinus disease, unchanged. Findings reported to Dr. Myrick at 5:50 AM on 05/29/2023. Reviewed, dictated and finalized at [facility] TECHNIC[facility] Impression: Very small acute subdural hematoma at the posterior left cerebral convexity, as detailed above. Atrophy and chronic white matter changes, as above. Chronic right maxillary sinus disease, unchanged. Findings reported to Dr. Myrick at 5:50 AM on 05/29/2023.
[2023-05-28 23:01] VITALS: BP 135/94; PULSE 93; RESP 18; TEMP 36.5; O2SAT 100
--- NOTE | 2023-05-28 23:30 | ED.FALL ---
HPI - Fall General Chief Complaint: Fall Stated Complaint: fall, head abrasion Time Seen by Provider: 05/28/23 22:48 Source: EMS Mode of arrival: EMS Limitations: altered mental status and clinical condition History of Present Illness HPI Narrative: Patient is a 70-year-old male with significant past medical history that presents today for a fall. Patient was at the snf had his daughter who was present with him today. His daughter states that she ends up with early because he was falling asleep in his chair. She says he does quite often overnight. He is following sequence chairs she has site leave and then she got a call that he fell out of his chair. He hit the top of his of his head on the floor. The daughter just missed this by a few moments. His daughters with today says he is at his baseline mental status. MD complaint: fall Onset (ago): hour(s) Fall from: wheelchair Fall witnessed: no Place fall occurred: snf/SNF Loss of consciousness: none Prolonged down time: unclear Symptoms prior to fall: other (sleeping) Context: other Location of injury: head Severity: moderate Severity scale (1-10): 3 Quality: sharp Associated symptoms (after fall): headache Related Data Home Medications Medication Instructions Recorded Confirmed tamsulosin 0.4 mg capsule (Flomax) 0.4 mg PO DAILY 01/25/22 12/18/22 diclofenac sodium 1 % topical gel See Rx Instructions .Route 09/08/22 12/18/22 .COMPLEX PRN Pain levothyroxine 100 mcg tablet 100 mcg PO DAILY 09/08/22 12/18/22 potassium chloride 20 mEq 20 meq PO DAILY 09/08/22 12/18/22 tablet,extended release(part/cryst) (Klor-Con M) digoxin 125 mcg (0.125 mg) tablet 125 mcg PO DAILY 09/25/22 12/18/22 cyanocobalamin (vitamin B-12) 1,000 mcg PO DAILY 10/10/22 12/18/22 1,000 mcg tablet docusate sodium 100 mg capsule 100 mg PO DAILY PRN Constipation 10/10/22 12/18/22 (Colace) furosemide 40 mg tablet 20 mg PO DAILY 10/10/22 12/18/22 aspirin 81 mg chewable tablet 81 mg PO DAILY 11/03/22 12/18/22 lorazepam 0.5 mg tablet 0.5 mg PO DAILY PRN Anxiety 11/03/22 12/18/22 morphine concentrate 100 mg/5 mL mg 12/18/22 (20 mg/mL) oral solution triamcinolone acetonide 0.025 % 1 applic topical DAILY 12/18/22 12/18/22 topical cream Allergies Allergy/AdvReac Type Severity Reaction Status Date / Time No Known Allergies Allergy Mild Verified 05/28/23 22:49 Review of Systems Review of Systems: All systems reviewed & are unremarkable except as noted in HPI and below Constitutional: Constitutional: Reports no additional constitutional complaints Eyes: Eyes: Reports no additional eye complaints ENT: Reports system reviewed and no additional complaints, except as documented Cardiovascular: Cardiovascular: Reports no additional cardiovascular complaints Respiratory: Respiratory: Reports no additional respiratory complaints Gastrointestinal: Gastrointestinal: Reports no additional gastrointestinal complaints Genitourinary: Genitourinary: Reports no additional male genitourinary complaints Musculoskeletal: Musculoskeletal: Reports no additional musculoskeletal complaints Integumentary/Breasts: Skin/Breast: Reports system reviewed and no additional complaints, except as docu Neurologic: Reports as per HPI Psychiatric: Psychiatric: Reports no additional psychiatric complaints Endocrine: Endocrine: Reports no additional endocrine complaints Hematologic/Lymphatic: Hematologic/Lymphatic: Reports no additional hematologic/lymphatic complaints Allergic/Immunologic: Allergic/Immunologic: Reports no additional allergic/immunologic complaints [facility] Past Medical History Medical History Atrial fibrillation BPH (benign prostatic hyperplasia) History of atrial fibrillation History of hyperlipidemia History of hypertension Hyperlipidemia Surgical History Surgical History (Reviewed 05/28/23 @ 23:37 by Ward Nuñez
[2023-05-29 00:37] VITALS: BP 128/77; PULSE 88; RESP 20; O2SAT 98
[2023-05-29 01:57] VITALS: BP 137/78; PULSE 90; RESP 18; O2SAT 99
--- NOTE | 2023-05-29 07:16 | PC.NURSE ---
SPOKE WITH DENY RN AT [facility] ABOUT NEW CT FINDINGS, NO CHANGE IN COURSE OF TREATMENT. REPORT OF HEAD CT FAXED TO FACILITY FOR FOLLOW TREATMENT. [phone]
--- NOTE | 2023-05-29 09:10 | P.PNCROSS_ITS ---
Event Note Event Note Event Note: Radiology called our department shortly before shift change to note a possible tiny subdural hemorrhage in the left posterior calvarium of a previously determined to be negative study. RN and MD Myrick were in process of notifying pt's caregivers. I reviewed images. A subdural hemorrhage is not clearly seen; study is equivocal. Chart reviewed and pt noted to be on Hospice, whose personally stated goals of care should take precedence over any diagnostic dilemma or academic question. Repeat imaging would not appear to be consistent with pt's stated goals of care; however, symptomatic relief of clinical symptoms should be sought if an intracranial injury is possible. correction staff informed over the phone of the equivocal finding, need to offer analgesia PRN, and the availability of re-evaluation in the ED at any time should pt, his family, his physician, or nursing staff feel it is needed in the interest of maximizing the patient's comfort and minimizing his distress.
== END 2023-05-29 02:03 ==
PROVIDERS: Emergency Provider Family Medicine; PCP Internal Medicine
DX: S00.91XA Abrasion of unspecified part of head, initial encounter (principal); I48.91 Unspecified atrial fibrillation; E78.5 Hyperlipidemia, unspecified; I10 Essential (primary) hypertension; W05.0XXA Fall from non-moving wheelchair, initial encounter; Y92.129 Unspecified place in nursing home as the place of occurrence of the external cause
CPT/HCPCS: 70450; 99284

== ENCOUNTER 2023-06-17 14:55 | Outpatient (CLI) | payer OTHER, MEDICARE, BC, SELFPAY ==
--- NOTE | ~2023-06-17 | XR_ITS ---
EXAMINATION: XR chest 1V Exam Date/Time: 06/17/2023 15:15 MANAGER OPERATIONS HISTORY: cough, ams, recent flu exposure hx cabg Comparison: 10/10/2022. RESULT: Lines, tubes, and devices: Surgical clips project over the lower neck. Intact sternotomy wires. Lungs and pleura: Mild diffuse reticular opacities. Patchy left basilar opacity and costophrenic ang le blunting. Linear scar in the lower right lung. Cardiomediastinal silhouette: Stable. Other: No acute osseous or upper abdominal finding. IMPRESSION: Left basilar atelectasis/consolidation. Small left pleural effusion versus chronic pleural scarring. Mild interstitial or senescent change versus interstitial edema. Reviewed, dictated and finalized at [facility]. GER OPERATIONS IMPRESSION: Left basilar atelectasis/consolidation. Small left pleural effusion versus [employer] pleural scarring. Mild interstitial or senescent change versus interstitial edema.
[2023-06-17 16:20] LABS: Influenza A QL RT-PCR Positive (Negative); Influenza B QL RT-PCR Negative (Negative)
== END 2023-06-17 14:56 | disposition home or self-care (01) ==
PROVIDERS: PCP Internal Medicine; Visit Provider Internal Medicine
DX: R05.9 Cough, unspecified (principal); Z95.1 Presence of aortocoronary bypass graft; R91.8 Other nonspecific abnormal finding of lung field
CPT/HCPCS: 71045; 87502

== ENCOUNTER 2023-06-20 12:46 | Observation (INO) | payer OTHER, MEDICARE, BC, SELFPAY ==
[2023-06-20] VITALS (32 sets, daily range): BP systolic 70–113; BP diastolic 52–71; PULSE 70–92; RESP 14–21; TEMP 36–36.4; O2SAT 92–97
--- NOTE | 2023-06-20 13:25 | PC.NURSE ---
FENTANYL PATCH REMOVED FROM RT SHOULDER PER ERP ORDER. PT IS NOTED HYPOTENSIVE, CURRENTLY RESPONDING TO PAIN. WILL AWAIT FURTHER ORDERS.
--- NOTE | 2023-06-20 13:35 | ED.GENADULT ---
HPI - General Adult General Chief complaint: Weakness Stated complaint: FATIGUE Time Seen by Provider: 06/20/23 13:35 History of Present Illness HPI narrative: 87-year-old white male shelter on hospice in the shelter tested positive for flu on 06/17. He has had decreased mental status the last day and family/ daughter wanted him evaluated in the emergency room so took him off hospice. He had the flu from his who is also in the shelter. Not been eating or drinking for last day or so. Decreased urine output. Cough nonproductive. Review of systems is limited by patient's condition. Related Data Home Medications Medication Instructions Recorded Confirmed tamsulosin 0.4 mg capsule (Flomax) 0.4 mg PO DAILY 01/25/22 06/20/23 diclofenac sodium 1 % topical gel See Rx Instructions .Route 09/08/22 06/20/23 .COMPLEX PRN Pain levothyroxine 100 mcg tablet 100 mcg PO DAILY 09/08/22 06/20/23 potassium chloride 20 mEq 20 meq PO DAILY 09/08/22 06/20/23 tablet,extended release(part/cryst) (Klor-Con M) digoxin 125 mcg (0.125 mg) tablet 125 mcg PO DAILY 09/25/22 06/20/23 cyanocobalamin (vitamin B-12) 1,000 mcg PO DAILY 10/10/22 06/20/23 1,000 mcg tablet docusate sodium 100 mg capsule 100 mg PO DAILY PRN Constipation 10/10/22 06/20/23 (Colace) furosemide 40 mg tablet 20 mg PO DAILY 10/10/22 06/20/23 aspirin 81 mg chewable tablet 81 mg PO DAILY 11/03/22 06/20/23 morphine concentrate 100 mg/5 mL 5 mg PO PRN PRN Pain (Scale Score 12/18/22 06/20/23 (20 mg/mL) oral solution 7-10) triamcinolone acetonide 0.025 % 1 applic topical DAILY 12/18/22 06/20/23 topical cream fentanyl 12 mcg/hr transdermal 12 mcg topical USEASDIRECTD 06/20/23 06/20/23 patch lidocaine 4 % topical patch 1 patch topical PRN PRN Pain, 06/20/23 06/20/23 Moderate quetiapine 25 mg tablet 25 mg PO HS 06/20/23 06/20/23 Allergies Allergy/AdvReac Type Severity Reaction Status Date / Time No Known Allergies Allergy Mild Verified 06/20/23 13:09 Review of Systems Review of Systems: Review of systems limited by patient's condition. [facility] Past Medical History Medical History Atrial fibrillation BPH (benign prostatic hyperplasia) History of atrial fibrillation History of hyperlipidemia History of hypertension Hyperlipidemia Surgical History Surgical History H/O arthroscopic knee surgery H/O hernia repair Heart valve replaced History of repair of right hip joint Hx of cholecystectomy S/P tonsillectomy and adenoidectomy Family History Family History Mother Heart disease Father Alcohol abuse by father Sibling Acute myocardial infarction Other Hypertension Social History Social History Social History: The patient lives with his who has dementia and he has been caring for her. They have had 3 children. He is retired from [employer]. Code status full code Smoking status: Unknown if ever smoked Second hand tobacco smoke exposure: No Alcohol intake: unknown Substance use: unknown Substance use type: does not use Lack of Transportation: No Lack of Food: Never True Current Housing: I Have Housing Concerned About Future Housing: No Difficulty Paying Gas/Electric Bills: No Difficulty Paying for Meds: No Currently Unemployed: No Education: Grade School Difficulty w/ Childcare or Family Care: No Living arrangements: with family Exam Narrative: Cachectic white elderly man very thin responds minimally to verbal stimuli. Unintelligible garbled speech. Conjunctiva pale. Neck is turn to the left stiff. But nontender. heart controlled rate but irregularly irregular. Lungs are clear. abdomen soft and nontender. Back is nontender. Extremities n
--- NOTE | 2023-06-20 13:40 | PC.NURSE ---
DAUGHTER HAS ARRIVED AT BEDSIDE.
--- NOTE | 2023-06-20 14:22 | PC.NURSE ---
ERP IS SPEAKING WITH DAUGHTER AT THIS TIME. NO CHANGE IN PT STATUS. WILL CONTINUE TO MONITOR.
[2023-06-20] MEDS: SODIUM CHLORIDE 0.9% IV 500 ML 999 ML IV CONT (14:53)
[2023-06-20 15:09] LABS: Hematocrit 45.8 % (37.0-46.0); Hemoglobin 14.4 g/dL (12.4-15.3); Mean Corpuscular HGB Conc 31.4 g/dL (32.0-36.0); Mean Corpuscular Hemoglobin 31.9 pg (27.0-31.0); Mean Corpuscular Volume 101.3 fL (78.0-102.0); Mean Platelet Volume 9.8 fl (8.7-11.0); Platelet Count Result 194 K/mm3 (150-420); Red Blood Count 4.52 M/mm3 (4.70-6.10); Red Cell Distribution Width 13.9 % (11.6-14.4); White Blood Count 9.8 K/mm3 (4.8-10.8)
[2023-06-20 15:24] LABS: INR 1.2; Prothrombin Time 12.5 Seconds (9.50-12.10)
[2023-06-20 15:30] LABS: Alanine Aminotransferase 83 U/L (16-63); Albumin Level 2.5 g/dL (3.4-5.0); Alkaline Phosphatase 139 U/L (46-116); Anion Gap 5 mmol/L (8-16); Aspartate Amino Transferase 212 U/L (15-37); Bilirubin,Total 0.5 mg/dL (0.00-1.00); Blood Urea Nitrogen 40 mg/dL (7-18); Calcium 9.2 mg/dL (8.5-10.1); Carbon Dioxide 32 mmol/L (21-32); Chloride 107 mmol/L (98-108); Estimated CRCL calculation 20 ml/min; Estimated Glomerular Filt Rate 30; Glucose 125 mg/dL (70-99); Magnesium 2.4 mg/dL (1.8-2.4); Osmolality Calculated 308 mOsm/kg (285-295); Potassium 4.1 mmol/L (3.5-5.1); Sodium 144 mmol/L (136-145); Total Protein 7.5 g/dL (6.4-8.2)
--- NOTE | 2023-06-20 15:32 | ECG_ITS ---
Measurements Intervals Max Rate: 74 P: FL: 0 QRS: -43 QRSD: 106 T: -60 QT: 411 QTc: 456 Interpretive Statements ATRIAL FIBRILLATION LEFT AXIS DEVIATION BORDERLINE ST-T WAVE ABNORMALITY- DIFFUSE LEADS ABNORMAL ECG COMPARED TO ECG 10/10/2022 16:10:14 LEFT-AXIS DEVIATION NOW PRESENT Electronically Signed On 06-21-2023 8:03:33 [employer]GER by Marshal Aguilar D.O.
[2023-06-20 15:33] LABS: Lactic Acid Reflex 2.1 mmol/L (0.4-2.0)
--- NOTE | 2023-06-20 15:33 | PC.NURSE ---
PT IS LYING ON STRETCHER IN EXAM ROOM, DAUGHTER HAS STEPPED OUT TO USE THE PHONE. NAD NOTED. NO CHANGE IN STATUS. WILL CONTINUE TO MONITOR.
--- NOTE | 2023-06-20 16:01 | PC.NURSE ---
ERP AT BEDSIDE SPEAKING WITH DAUGHTER. PT HAS BEEN ACCEPTED FOR ADMISSION TO ROOM 208.
[2023-06-20 18:06] LABS: Reflex Lactic Acid Yes or No Add Lactic
[2023-06-20] MEDS: SODIUM CHLORIDE 0.9% IV 1,000 ML 100 ML IV CONT (18:42)
[2023-06-20 18:57] LABS: Lactic Acid 1.9 mmol/L (0.4-2.0)
[2023-06-21] VITALS: BP 96/53; PULSE 77; RESP 17; TEMP 36; O2SAT 98
[2023-06-21] MEDS: ACETAMINOPHEN 325 MG TABLET 650 MG PO (00:59)
[2023-06-21] MEDS: ONDANSETRON INJ 4 MG/2 ML VIAL IV PUSH (00:59)
[2023-06-21 04:00] VITALS: PULSE 112
[2023-06-21] MEDS: SODIUM CHLORIDE 0.9% IV 1,000 ML 100 ML IV CONT (04:36)
[2023-06-21 05:15] LABS: Basophils Absolute Auto 0.01 K/mm3 (0.00-0.10); Basophils Percent Auto 0.1 % (0.0-1.0); Eosinophils Absolute Auto 0.04 K/mm3 (0.02-0.50); Eosinophils Percent Auto 0.6 % (1.0-6.0); Hematocrit 40.9 % (37.0-46.0); Hemoglobin 12.8 g/dL (12.4-15.3); Immature Granulocyte Absolute 0.03 K/mm3 (0.00-0.00); Immature Granulocyte Percent A 0.4 % (0.0-0.0); Lymphocytes Absolute Auto 0.92 K/mm3 (1.10-4.50); Lymphocytes Percent Auto 13.8 % (18.0-42.0); Mean Corpuscular HGB Conc 31.3 g/dL (32.0-36.0); Mean Corpuscular Hemoglobin 32.2 pg (27.0-31.0); Mean Platelet Volume 9.5 fl (8.7-11.0); Monocytes Absolute Auto 0.32 K/mm3 (0.10-0.90); Monocytes Percent Auto 4.8 % (2.0-11.0); Neutrophils Absolute Auto 5.4 K/mm3 (1.7-7.2); Neutrophils Percent Auto 80.3 % (50.0-70.0); Platelet Count Result 168 K/mm3 (150-420); Red Blood Count 3.97 M/mm3 (4.70-6.10); White Blood Count 6.7 K/mm3 (4.8-10.8)
[2023-06-21 05:31] LABS: Alanine Aminotransferase 71 U/L (16-63); Albumin Level 2.2 g/dL (3.4-5.0); Alkaline Phosphatase 122 U/L (46-116); Anion Gap 6 mmol/L (8-16); Aspartate Amino Transferase 188 U/L (15-37); Bilirubin,Total 0.4 mg/dL (0.00-1.00); Blood Urea Nitrogen 40 mg/dL (7-18); Calcium 8.5 mg/dL (8.5-10.1); Carbon Dioxide 28 mmol/L (21-32); Chloride 111 mmol/L (98-108); Estimated CRCL calculation 31 ml/min; Estimated Glomerular Filt Rate 53; Glucose 96 mg/dL (70-99); Osmolality Calculated 309 mOsm/kg (285-295); Potassium 3.7 mmol/L (3.5-5.1); Sodium 145 mmol/L (136-145)
[2023-06-21 05:33] LABS: Lactic Acid Reflex 1.4 mmol/L (0.4-2.0)
--- NOTE | 2023-06-21 06:01 | PC.NURSE ---
Unable to give AM Levothyroxine d/t pt not waking up and not swallowing. Multiple attempts made, oral care given with swab, no s/sx distress noted.
--- NOTE | 2023-06-21 07:24 | PM.IMHP ---
H&P: HPI History of Present Illness Date/Time: 06/21/23 07:24 [facility] Past Medical History Medical History Atrial fibrillation BPH (benign prostatic hyperplasia) History of atrial fibrillation History of hyperlipidemia History of hypertension Hyperlipidemia Surgical History Surgical History H/O arthroscopic knee surgery H/O hernia repair Heart valve replaced History of repair of right hip joint Hx of cholecystectomy S/P tonsillectomy and adenoidectomy Family History Family History Mother Heart disease Father Alcohol abuse by father Sibling Acute myocardial infarction Other Hypertension Social History Social History Social History: The patient lives with his who has dementia and he has been caring for her. They have had 3 children. He is retired from [employer]. Code status full code Smoking status: Unknown if ever smoked Second hand tobacco smoke exposure: No Alcohol intake: unknown Substance use: unknown Substance use type: does not use Lack of Transportation: No Lack of Food: Never True Current Housing: I Have Housing Concerned About Future Housing: No Difficulty Paying Gas/Electric Bills: No Difficulty Paying for Meds: No Currently Unemployed: No Education: Grade School Difficulty w/ Childcare or Family Care: No Living arrangements: with family Spiritual care concerns: No Meds Home Medications and Allergies Home Medications Medication Instructions Recorded Confirmed Type tamsulosin 0.4 mg capsule (Flomax) 0.4 mg PO DAILY 01/25/22 06/20/23 History acetaminophen 325 mg tablet (Mapap 650 mg PO Q4H PRN Headache 30 days 08/11/22 06/20/23 Rx (acetaminophen)) #30 tabs calcium carbonate 500 mg calcium 200 mg PO Q6H PRN Indigestion 30 08/11/22 06/20/23 Rx (1,250 mg) chewable tablet days #30 tabs peg [id number] 1 1 drp EACH EYE QID PRN Dry Eye(S) 08/11/22 06/20/23 Rx %-0.2 %-0.2 % eye drops 30 days #15 mL (Artificial Tears ([id number])) polyethylene glycol 3350 17 gram 17 g PO QAM PRN Constipation 30 08/11/22 06/20/23 Rx oral powder packet (Miralax) days #30 ea simethicone 80 mg chewable tablet 80 mg PO QID PRN Gas Discomfort 30 08/11/22 06/20/23 Rx days #30 tabs diclofenac sodium 1 % topical gel See Rx Instructions .Route 09/08/22 06/20/23 History .COMPLEX PRN Pain levothyroxine 100 mcg tablet 100 mcg PO DAILY 09/08/22 06/20/23 History potassium chloride 20 mEq 20 meq PO DAILY 09/08/22 06/20/23 History tablet,extended release(part/cryst) (Klor-Con M) digoxin 125 mcg (0.125 mg) tablet 125 mcg PO DAILY 09/25/22 06/20/23 History cyanocobalamin (vitamin B-12) 1,000 mcg PO DAILY 10/10/22 06/20/23 History 1,000 mcg tablet docusate sodium 100 mg capsule 100 mg PO DAILY PRN Constipation 10/10/22 06/20/23 History (Colace) furosemide 40 mg tablet 20 mg PO DAILY 10/10/22 06/20/23 History albuterol sulfate 90 mcg/actuation 2 puff inhalation QIDRT PRN 10/13/22 06/20/23 Rx aerosol inhaler (Proventil HFA) Shortness Of Breath #8.5 grams aspirin 81 mg chewable tablet 81 mg PO DAILY 11/03/22 06/20/23 History morphine concentrate 100 mg/5 mL 5 mg PO PRN PRN Pain (Scale Score 12/18/22 06/20/23 History (20 mg/mL) oral solution 7-10) triamcinolone acetonide 0.025 % 1 applic topical DAILY 12/18/22 06/20/23 History topical cream fentanyl 12 mcg/hr transdermal 12 mcg topical USEASDIRECTD 06/20/23 06/20/23 History patch lidocaine 4 % topical patch 1 patch topical PRN PRN Pain, 06/20/23 06/20/23 History Moderate quetiapine 25 mg tablet 25 mg PO HS 06/20/23 06/20/23 History Allergies Allergy/AdvReac Type Severity Reaction Status Date / Time No Known Allergies Allergy Mild
[2023-06-21 07:50] VITALS: PULSE 77
[2023-06-21 07:53] VITALS: BP 99/51; PULSE 82; RESP 16; TEMP 36.4; O2SAT 97
--- NOTE | 2023-06-21 08:27 | PM.SD2 ---
Same Day Admit/Disch: HPI History of Present Illness Chief complaint: FATIGUE Narrative: America Weinberg is a 87 year old male who has been on hosp[facility] since [facility]. Patient has a history of frequent falls with prior intracranial bleeds. For the past several days patient has not been as awake not eating and drinking as usual. His daughter was concerned that he was just dehydrated so she removed him from hospice care to have him transported to the emergency department for IV fluids and evaluation. In the ER patient found to have elevated troponin elevated creatinine. CT scan was performed. After admission further conversation with patient's daughter was completed by hospitalist after chart review. Patient's daughter does not want to pursue any additional evaluation or transfer for higher level of care related to current condition. She simply thought that he was dehydrated and would do better after IV fluids. Labs have improved after IV fluids but patient's level of consciousness is still only opening eyes to voice and answering one-word questions at times. I offered repeat CT scan of the brain and patient daughter declined. Again offered transfer for more invasive monitoring and care which was further declined. She wants to Reestablish care with hospice and go back to the detention for end of life care. She acknowledges that it appears patient will live for another week or so unless his condition abruptly changes. She notes that he had a history of congestive heart failure but she had declined echocardiogram in the past. [facility] Past Medical History Medical History Atrial fibrillation BPH (benign prostatic hyperplasia) History of atrial fibrillation History of hyperlipidemia History of hypertension Hyperlipidemia Surgical History Surgical History H/O arthroscopic knee surgery H/O hernia repair Heart valve replaced History of repair of right hip joint Hx of cholecystectomy S/P tonsillectomy and adenoidectomy Family History Family History Mother Heart disease Father Alcohol abuse by father Sibling Acute myocardial infarction Other Hypertension Social History Social History (Updated 06/21/23 @ 08:34 by Simone Perez APRN) Social History: The patient lives with his who has dementia and he has been caring for her at the detention. They have had 3 children. He is retired from [employer]. Code status DNR, re-establish with hospice care Smoking status: Unknown if ever smoked Second hand tobacco smoke exposure: No Alcohol intake: unknown Substance use: unknown Substance use type: does not use Lack of Transportation: No Lack of Food: Never True Current Housing: I Have Housing Concerned About Future Housing: No Difficulty Paying Gas/Electric Bills: No Difficulty Paying for Meds: No Currently Unemployed: No Education: Grade School Difficulty w/ Childcare or Family Care: No Living arrangements: detention Spiritual care concerns: No Same Day Admit/Disch: Med Pre-admit Medications Home Medications Medication Instructions Recorded Confirmed Type tamsulosin 0.4 mg capsule (Flomax) 0.4 mg PO DAILY 01/25/22 06/20/23 History acetaminophen 325 mg tablet (Mapap 650 mg PO Q4H PRN Headache 30 days 08/11/22 06/20/23 Rx (acetaminophen)) #30 tabs calcium carbonate 500 mg calcium 200 mg PO Q6H PRN Indigestion 30 08/11/22 06/20/23 Rx (1,250 mg) chewable tablet days #30 tabs peg [id number] 1 1 drp EACH EYE QID PRN Dry Eye(S) 08/11/22 06/20/23 Rx %-0.2 %-0.2 % eye drops 30 days #15 mL (Artificial Tears ([id number])) polyethylene glycol 3350 17 gram 17 g PO QAM PRN Constipation 30 08/11/22 06/20/23 Rx oral powder packet (Miralax
[2023-06-21 09:16] VITALS: PULSE 82
[2023-06-21] MEDS: DIGOXIN TAB 125 MCG TABLET PO (09:16)
--- NOTE | 2023-06-22 08:22 | PC.NURSE ---
Discharge back to [facility]-way on hospice, hard copy and faxed copy of dc instructions to [facility]-way, no questions or concerns
== END 2023-06-21 10:45 | disposition hospice, inpatient (51) ==
LOC: CHSED 13:50 → CHS2ND 16:05
PROVIDERS: Nurse Practitioner Acute Care; Admitting Provider Internal Medicine; Emergency Provider Emergency Medicine; PCP Internal Medicine; Visit Provider Internal Medicine
DX: I21.4 Non-ST elevation (NSTEMI) myocardial infarction (principal); N17.9 Acute kidney failure, unspecified; E86.0 Dehydration; J10.00 Influenza due to other identified influenza virus with unspecified type of pneumonia; Z68.20 Body mass index [BMI] 20.0-20.9, adult; N40.0 Benign prostatic hyperplasia without lower urinary tract symptoms; I48.91 Unspecified atrial fibrillation; E78.5 Hyperlipidemia, unspecified; K59.00 Constipation, unspecified; I10 Essential (primary) hypertension; Z95.2 Presence of prosthetic heart valve; Z96.641 Presence of right artificial hip joint; Z79.1 Long term (current) use of non-steroidal anti-inflammatories (NSAID); Z79.51 Long term (current) use of inhaled steroids; Z79.82 Long term (current) use of aspirin; Z79.891 Long term (current) use of opiate analgesic; Z79.899 Other long term (current) drug therapy; Z82.49 Family history of ischemic heart disease and other diseases of the circulatory system
CPT/HCPCS: 36415; 80053; 83605; 83735; 84484; 85025; 85027; 85610; 85730; 87040; 93005; 96361; 96365; 96375; 99285; A9270; G0378; J0696; J2405; J7030; J7040